=== PATIENT | male | born 1945 | race Caucasian/White ===

== ENCOUNTER → 2016-09-22 | Outpatient (CLI) | payer OTHER, BC ==
[~2016-09-22] MED LIST: ASPCH81X PO; MULT-618 PO
[2016-09-22 11:49] LABS: BLOOD UREA NITROGEN 24 mg/dl (7-18); BUN/CREATININE RATIO 16.9 (10-20); CARBON DIOXIDE 29 mmol/L (21-32); CHLORIDE 107 mmol/L (98-107); GLUCOSE 107 mg/dl (70-99); POTASSIUM 4.2 mmol/L (3.5-5.1); SODIUM 144 mmol/L (136-145)
[2016-09-22 12:12] LABS: ESTIMATED AVERAGE GLUCOSE 120 mg/dl; HA1C FLAG Normal (Normal)
== END | disposition home or self-care (01) ==
LOC: C.LAB1850 09:16
PROVIDERS: ATTEND Nurse Practitioner Family
DX: E55.9 Vitamin D deficiency, unspecified (principal); E78.5 Hyperlipidemia, unspecified; R73.09 Other abnormal glucose

== ENCOUNTER → 2017-03-27 | Outpatient (CLI) | payer OTHER, BC ==
[2017-03-27 09:33] LABS: BASO % 0.5 %; BASO ABS # 0.04 K/uL (0-0.2); COMPLETE YES; EOS % 2.7 %; HEMATOCRIT 46.3 % (42-52); IG% 0.4 %; LYMPH % 26.9 %; LYMPH ABS # 1.98 K/uL (1.2-3.4); MEAN CELL VOLUME 94.1 fL (80-100); MEAN CORPUSCULAR HEMOGLOBIN 32.7 pg (25-34); MEAN CORPUSCULAR HGB CONC 34.8 g/dl (32-36); MEAN PLATELET VOLUME 10.8 fL (7.4-10.4); MONO % 9.1 %; NEUT % 60.4 %; PLATELET COUNT 250 K/uL (130-400); RED BLOOD COUNT 4.92 M/uL (4.7-6.1); WHITE BLOOD COUNT 7.36 K/uL (4.8-10.8)
[2017-03-27 09:49] LABS: ESTIMATED AVERAGE GLUCOSE 117 mg/dl; HA1C FLAG Normal (Normal)
[2017-03-27 10:01] LABS: ALT/SGPT 26 U/L (12-78); BLOOD UREA NITROGEN 21 mg/dl (7-18); BUN/CREATININE RATIO 17.8 (10-20); CALCIUM 8.6 mg/dl (8.5-10.1); CARBON DIOXIDE 27 mmol/L (21-32); CHLORIDE 105 mmol/L (98-107); CHOLESTEROL 205 mg/dl (0-200); CREATININE 1.19 mg/dl (0.60-1.40); GLUCOSE 102 mg/dl (70-99); POTASSIUM 3.7 mmol/L (3.5-5.1); SODIUM 140 mmol/L (136-145)
[2017-03-27 10:05] LABS: ALKALINE PHOSPHATASE 65 U/L (45-117); AST/SGOT 13 U/L (15-37); CHOLESTEROL/HDL RATIO 2.8; HDL CHOLESTEROL 74 mg/dl; LDL CHOLESTEROL CALCULATED 110 mg/dl; TRIGLYCERIDES 105 mg/dl (0-150); VERY LOW DENSITY LIPOPROT CALC 21 mg/dl
[2017-03-27 10:09] LABS: RATIO 7.1 mcg/mg (0-30.0)
== END | disposition home or self-care (01) ==
LOC: C.LAB1850 08:38
PROVIDERS: ATTEND Nurse Practitioner Family
DX: E78.5 Hyperlipidemia, unspecified (principal); R73.09 Other abnormal glucose; E55.9 Vitamin D deficiency, unspecified

== ENCOUNTER → 2017-04-18 | Outpatient (CLI) | payer OTHER, BC ==
[~2017-04-18] MED LIST changes: +PERFLUTREN LIPID MICROSPHERE (DEFINITY) IV ONE
--- NOTE | 2017-04-18 15:13 | ECHOCARDIOGRAM REPORT ---
*NOTICE TO RECEIVING [employer] This information is strictly Confidential and protected under [place] law. [place] law prohibits you from making any further disclosure of this information unless further disclosure is expressly permitted by the written consent of the person to whom it pertains or is authorized by law. A general authorization for the release of medical or other information is not sufficient for this purpose. Hospital accepts no responsibility if the information is made available to any other person, INCLUDING THE PATIENT. Interpretation Summary * Name: MADAN KING Study Date: 04/18/2017 12:27 PM BP: 126/70 mmHg * Patient Location: [facility] HR: 65 * : 1945 (M/d/yyyy) Gender: Male Height: 70 in * Age: 72 yrs Ethnicity: [place] Weight: 220 lb * Ordering Physician: Magdaleno Howe * Referring Physician: Magdaleno Howe * Performed By: Rachel Price RDCS * * Reason For Study: HEART MURMUR * BSA: 2.2 m2 * -- Conclusions -- * There is mild concentric left ventricular hypertrophy. * Left ventricular systolic function is normal. * Grade I diastolic dysfunction, (abnormal relaxation pattern). * The left atrium is mildly dilated. * Mild valvular aortic stenosis. * Right ventricular systolic pressure is normal. Procedure Details * A contrast injection of Definity was performed to improve assessment of LV function. * Contrast was injected into an intravenous site in the right arm. * One vial of Definity ultrasound contrast was diluted in normal saline to a total volume of 10 ml. A total of '2' ml of solution was administered during imaging. * Lot # [id number] of Definity utilized for procedure. * Expiration date 1 JUN 04. * The attending nurse who injected the contrast agent was ELIZABETH JOHNSTON RN. Left Ventricle * The left ventricle is normal in size. * There is mild concentric left ventricular hypertrophy. * Left ventricular systolic function is normal. * Ejection Fraction = 55-60%. * Grade I diastolic dysfunction, (abnormal relaxation pattern). * The left ventricular wall motion is normal. Right Ventricle * The right ventricle is normal in size and function. * The right ventricular systolic function is normal as assessed by tricuspid annular plane systolic excursion (TAPSE) (normal >1.5 cm). Atria * The left atrium is mildly dilated. * Right atrial size is normal. Mitral Valve * The mitral valve anatomy is normal. * There is trace mitral regurgitation. Tricuspid Valve * The tricuspid valve is not well visualized, but is grossly normal. * There is trace tricuspid regurgitation. * Right ventricular systolic pressure is normal. Aortic Valve * The aortic valve is trileaflet. * Mild valvular aortic stenosis. * No aortic regurgitation is present. Great Vessels * The aortic root is normal size. Pericardium/Pleural * There is no pericardial effusion. Great Vessels * Normal inferior vena cava diameter and respiratory variation suggests normal central venous pressure. MMode 2D Measurements and Calculations IVSd 1.4 cm IVSs 2.0 cm LVIDd 4.5 cm LVIDs 3.2 cm LVPWd 1.4 cm LVPWs 1.7 cm IVS/LVPW 0.97 FS 27.7 % EDV(Teich) 91.4 ml ESV(Teich) 42.1 ml EF(Teich) 53.9 % EDV(cubed) 89.8 ml ESV(cubed) 33.9 ml EF(cubed) 62.2 % % IVS thick 44.2 % % LVPW thick 15.7 % LV mass(C)d 254.4 grams LV mass(C)dI 117.0 grams/m\S\2 LV mass(C)s 251.2 grams LV mass(C)sI 115.5 grams/m\S\2 SV(Teich) 49.3 ml SI(Teich) 22.7 ml/m\S\2 SV(cubed) 55.9 ml SI(cubed) 25.7 ml/m\S\2 Ao root diam 3.2 cm Ao root area 8.1 cm\S\2 LA dimension 4.0 cm LA/Ao 1.2 LVAd ap4 37.5 cm\S\2 LVLd ap4 8.7 cm EDV(MOD-sp4) 135.8 ml EDV(sp4-el) 137.9 ml LVAs ap4 23.5 cm\S\2 LVLs ap4 7.5 cm ESV(MOD-sp4) 64.9 ml ESV(sp4-el) 62.6 ml EF(MOD-sp4) 52.2 % EF(sp4-el) 54.6 % LVAd ap2 29.9 cm\S\2 LVLd ap2 8.5 cm EDV(MOD-sp2) 86.3 ml EDV(sp2-el) 89.5 ml LVAs ap2 16.3 cm\S\2 LVLs ap2 6.1 cm ESV(MOD-sp2) 36.2 ml ESV(sp2-el) 36.8 ml EF(MOD-sp2) 58.1 % EF(sp2-el) 58.9 % LVLd %diff -2.35 % EDV(MOD-bp) 108.8 ml LVLs %diff -22.50 % ESV(MOD-bp) 52.8 ml EF(MOD-bp) 51.5 % SV(MOD-sp4) 70.9 ml SI(MOD-sp4) 32.6 ml/m\S\2 SV(MOD-sp2) 50.1 ml SI(MOD-sp2) 23.1 ml/m\S\2 SV(MOD-bp) 56.0 ml SI(MOD-bp) 25.8 ml/m\S\2 SV(sp4-el) 75.3 ml SI(sp4-el) 34.6 ml/m\S\2 SV(sp2-el) 52.7 ml SI(sp2-el) 24.2 ml/m\S\2 Doppler Measurements and Calculations MV E max elier 60.2 cm/sec MV A max elier 66.3 cm/sec MV E/A 0.91 MV dec time 0.31 sec Ao V2 max 242.9 cm/sec Ao max PG 23.6 mmHg Ao max PG (full) 18.2 mmHg Ao V2 mean 160.8 cm/sec Ao mean PG 11.7 mmHg Ao mean PG (full) 9.3 mmHg Ao V2 VTI 48.4 cm LV V1 max PG 5.4 mmHg LV V1 mean PG 2.4 mmHg LV V1 max 116.6 cm/sec LV V1 mean 69.9 cm/sec LV V1 VTI 23.6 cm SV(Ao) 390.8 ml SI(Ao) 179.8 ml/m\S\2 TR max elier 215.4 cm/sec
== END | disposition home or self-care (01) ==
LOC: C.CPL 12:08
PROVIDERS: ATTEND Nurse Practitioner Family
DX: R01.1 Cardiac murmur, unspecified (principal)

== ENCOUNTER 2022-08-28 08:52 | Inpatient (IN) ==
[2022-08-28] MEDS ORDERED: ONDANSETRON INJ 2 MG/ML 2 ML VIAL IV STA (09:03)
[2022-08-28] MEDS ORDERED: SODIUM CHLORIDE 0.9% 500 ML IV STA (09:03)
--- NOTE | 2022-08-28 09:10 | Emergency Department Note ---
Impression & Plan Acute pancreatitis, Vomiting, WILMER (acute kidney injury), Elevated troponin I level ED Provider Note NAME: MADAN KING AGE: 77 SEX: M : 1945 ARRIVES VIA: Walk-In INFORMANT: Patient, ED PROVIDER(S): Augustin Turk DO CHIEF COMPLAINT: Vomiting HPI: The patient is a 77-year-old male who presented to the emergency department for an evaluation of nausea vomiting. The patient states that he started having symptoms yesterday. He states he started having nausea and vomiting with upper abdominal pain. His significant other states that he has been belching a lot. He also notices some lower chest pain and upper abdominal pain. He has a history of appendectomy but this was many years ago. He has no history of bowel obstruction. He denies having any back pain. He denies having any dysuria or frequency. He denies having any difficulty breathing. The patient had 2 more episodes of emesis which were very severe and his significant other brought him to the emergency department today for further evaluation. He has not been seen by his family doctor. ROS: See above HPI for pertinent positives & negatives. A total of 10 systems reviewed and were otherwise negative. PAST MEDICAL HISTORY: See Below PAST SURGICAL HISTORY: See Below FAMILY HISTORY: See Below SOCIAL HISTORY: See Below HOME MEDICATIONS: See Below ALLERGIES: See Below VITALS: See Below PHYSICAL EXAMINATION: GENERAL: Patient is awake alert in no acute distress patient is resting comfortably and showing no signs of anxiety EYES: The conjunctivae are clear. The pupils are round and reactive. EARS, NOSE, MOUTH AND THROAT: The nose is without any evidence of any deformity. Mucous membranes are moist. Tongue is midline. NECK: The neck is nontender and supple. RESPIRATORY: Normal respiratory effort is noted there is no evidence of wheezing rhonchi or rales CARDIOVASCULAR: Regular rate and rhythm noted there no murmurs rubs or gallops normal S1 normal S2. GASTROINTESTINAL: The abdomen is distended. There is diffuse tenderness to palpation. There is specific epigastric and supraumbilical tenderness to palpation. There is no inguinal masses or swelling noted on my exam. BACK: No midline tenderness or or step-off noted range of motion in flexion extension as well as rotation no signs of muscle spasm noted MUSCULOSKELETAL/EXTREMITIES: There is no evidence of gross deformity full range of motion is noted in the hips and shoulders. SKIN: There is no obvious evidence of any rash. There are no petechiae, pallor or cyanosis noted. NEUROLOGIC: Patient is awake alert and oriented x3. MEDICAL DECISION MAKING: The patient is a 77-year-old male who presented to the emergency department for an evaluation of abdominal pain and vomiting. The patient has significant upper abdominal pain on physical exam. The patient was found to have an elevation in his white blood cell count. He was treated with IV fluids and IV antiemetics. He was also treated with IV pain medication. Further he was treated with IV antibiotics and IV proton pump inhibitor when his lipase was found to be elevated and CAT scan appeared to be consistent with pancreatitis. I discussed the patient's condition with the on-call dang Sinha hospitalist as well as the on-call general surgeon. He was evaluated in the emergency department by both groups but they felt he may be a better candidate for transfer given the possibility of deterioration in necrosis. For this reason I discussed the farrah ashton's condition with the transfer group at [facility]. They had the ability to discuss patient's condition further with surgery and GI at their facility. They feel the patient can be kept at our facility at this time unless the patient were to deteriorate further. I discussed the patient's condition again with general surgery as well as Dang cutlerist at our group. Luis A lance have agreed to evaluate the patient in the emergency department again. Triage Nursing notes reviewed. Prior medical records reviewed Vital Signs: reviewed and remarkable for elevated blood pressure. Differential diagnosis: Gastroenteritis, food borne illness, infections, appendicitis, diverticulitis, inflammatory bowel disease, obstruction, GI bleed, biliary pathology, volvulus, as well as other pathologies. ER treatment provided: See below Diagnostics interpreted by me: ECG: EKG was obtained in the emergency department. My interpretation is normal sinus rhythm at 80 bpm. Nonspecific inferior and lateral ST depressions were noted. This was compared to a tracing from December 31, 2017. No changes were noted. Cardiac Monitoring: An order was placed for continuous cardiac monitoring. The monitor shows a rate of 78 bpm with sinus rhythm. Laboratory studies: As stated above and show below. Imaging studies: See below. Radiographic imaging was reviewed by myself Consultation(s): The case was discussed with Dr. Davidson who is on-call for the dang Sinha hospitalist group. I discussed this case with Leticia who is on-call for general surgery. They will evaluate the patient in the emergency department. I discussed this case with Dr. Zhong who is on for [facility]. They have agreed accept the patient in transfer although they will not have a bed for 24 hours. ED COURSE: Procedures: none Critical Care: I have personally spent greater than 45 minutes of critical care time in the direct management of this patient. This includes bedside care, interpretation of diagnostic studies, and testing, discussion with consultants, patient, and family members, and other required patient management activities. This 45 minutes is in excess of all separately billable procedures. Past Med/Surg History Medical History Cataracts, bilateral Heart murmur Hyperlipidemia Impaired glucose regulation Vitamin D deficiency Surgical History H/O bilateral cataract extraction History of appendectomy History of tonsillectomy Family History Sister Ovarian cancer Hypertension Obesity Mother Diabetes Father Stroke syndrome Other No significant family history Denies family history of Colon cancer Prostate cancer Myocardial infarction Breast cancer Colorectal cancer Social History Smoking Status: Never smoker Tobacco Type: Cigarettes Age Started Using Tobacco: 10; Age Quit Using Tobacco: 17; Second Hand Exposure: No; Do You Dip or Chew Tobacco: No; Hx Alcohol Use: Yes Alcohol type: beer Alcohol Intake Frequency: 2-4 x/Month Hx Substance Use: No Preferred Language: Mauritian Communication Ability: Effective Visual Impairment: No Limitations Hearing Ability: Normal Driller Portable Required: No marital status: Current Living Situation: Spouse current occupational status: retired How many Children do You have: 1 Feels Safe at Home: Yes Childhood Exposure to Second-Hand Smoke: Yes Diet: regular caffeine: No during the past year weight has: decreased > 10 lbs Dental Care, Regularly: Yes Physical Activity Frequency: 3-4 Times per Week Seatbelt Use: always Sunscreen Use: Yes Assistive Devices: Glasses Allergies Allergies Allergy/AdvReac Type Severity Reaction Status Date / Time piperacillin [From Zosyn] Allergy Hives Unverified 08/28/22 11:30 Sulfa (Sulfonamide Allergy Hives Verified 08/09/22 10:50 Antibiotics) tazobactam [From Zosyn] Allergy Hives Unverified 08/28/22 11:30 Home Meds Home Medications Medication Instructions Recorded Confirmed aspirin 81 mg tablet,delayed 81 mg PO DAILY 12/31/17 08/28/22 release (Adult Low Dose Aspirin) [id number]-[id number] acid 300 1 tab PO DAILY 12/31/17 08/28/22 mcg-lycopene 600 mcg-lutein 300 mcg tablet (Centrum Silver Men) mupirocin 2 % topical ointment 1 applic topical TID 02/07/22 08/28/22 cholecalciferol (vitamin D3) 50 2,000 unit PO DAILY 08/09/22 08/28/22 mcg (2,000 unit) tablet (Vitamin D3) melatonin 5 mg tablet 10 mg PO HS 08/28/22 08/28/22 Previous Rx's Medication Instructions Recorded lisinopril 5 mg tablet 5 mg PO QAM #90 tabs 11/16/21 triamcinolone acetonide 0.1 % 1 applic topical DAILY PRN rash 06/12/22 topical cream #80 grams Results & Data (ED) Vital Signs Vital Signs - 24 hr 08/28/22 08:54 08/28/22 09:12 08/28/22 09:13 Temperature 36.5 C Temperature Source Temporal Artery Scan Pulse Rate 93 H Pulse Rate [Apical] 79 Pulse Rate from SpO2 Sensor Pulse Rhythm Regular Pulse Rhythm [Apical] Regular Respiratory Rate 20 18 Respiratory Effort / Characteristics Non-Labored Spontaneous Respiratory Depth Normal Blood Pressure 157/90 H Blood Pressure [Left Arm] 169/82 H Blood Pressure Mean 112 Blood Pressure Mean [Left Arm] 111 Pulse Oximetry 97 97 98 Oxygen Delivery Method Room Air Room Air Room Air Sepsis Recent Fever Within 48 Hours No Sepsis New/Unexplained Change in Mental Status No Sepsis Action Taken by Nursing No Action Required 08/28/22 10:12 08/28/22 09:15 08/28/22 09:20 Temperature Temperature Source Pulse Rate 83 77 Pulse Rate [Apical] 77 Pulse Rate from SpO2 Sensor 83 78 Pulse Rhythm Pulse Rhythm [Apical] Respiratory Rate 15 17 21 Respiratory Effort / Characteristics Respiratory Depth Blood Pressure Blood Pressure [Left Arm] Blood Pressure Mean Blood Pressure Mean [Left Arm] Pulse Oximetry 97 98 96 Oxygen Delivery Method Room Air Sepsis Recent Fever Within 48 Hours Sepsis New/Unexplained Change in Mental Status Sepsis Action Taken by Nursing 08/28/22 09:30 08/28/22 09:40 08/28/22 09:50 Temperature Temperature Source Pulse Rate Pulse Rate [Apical] Pulse Rate from SpO2 Sensor 72 76 73 Pulse Rhythm Pulse Rhythm [Apical] Respiratory Rate Respiratory Effort / Characteristics Respiratory Depth Blood Pressure Blood Pressure [Left Arm] Blood Pressure Mean Blood Pressure Mean [Left Arm] Pulse Oximetry 98 97 96 Oxygen Delivery Method Sepsis Recent Fever Within 48 Hours Sepsis New/Unexplained Change in Mental Status Sepsis Action Taken by Nursing 08/28/22 10:00 08/28/22 10:40 08/28/22 10:50 Temperature Temperature Source Pulse Rate 86 82 Pulse Rate [Apical] Pulse Rate from SpO2 Sensor 76 Pulse Rhythm Pulse Rhythm [Apical] Respiratory Rate 18 Respiratory Effort / Characteristics Respiratory Depth Blood Pressure Blood Pressure [Left Arm] Blood Pressure Mean Blood Pressure Mean [Left Arm] Pulse Oximetry 97 Oxygen Delivery Method Sepsis Recent Fever Within 48 Hours Sepsis New/Unexplained Change in Mental Status Sepsis Action Taken by Nursing 08/28/22 11:00 08/28/22 11:10 08/28/22 11:20 Temperature Temperature Source Pulse Rate 80 77 85 Pulse Rate [Apical] Pulse Rate from SpO2 Sensor Pulse Rhythm Pulse Rhythm [Apical] Respiratory Rate 15 Respiratory Effort / Characteristics Respiratory Depth Blood Pressure Blood Pressure [Left Arm] Blood Pressure Mean Blood Pressure Mean [Left Arm] Pulse Oximetry Oxygen Delivery Method Sepsis Recent Fever Within 48 Hours Sepsis New/Unexplained Change in Mental Status Sepsis Action Taken by Nursing 08/28/22 11:30 08/28/22 11:40 Temperature Temperature Source Pulse Rate 81 78 Pulse Rate [Apical] Pulse Rate from SpO2 Sensor Pulse Rhythm Pulse Rhythm [Apical] Respiratory Rate 25 H Respiratory Effort / Characteristics Respiratory Depth Blood Pressure Blood Pressure [Left Arm] Blood Pressure Mean Blood Pressure Mean [Left Arm] Pulse Oximetry Oxygen Delivery Method Sepsis Recent Fever Within 48 Hours Sepsis New/Unexplained Change in Mental Status Sepsis Action Taken by Custodial Medications Current Medication List: was personally reviewed by me Laboratory Data Attestation: I reviewed the patient's lab results. 08/28/22 09:10 08/28/22 09:10 Lab Results 08/28/22 08/28/22 08/28/22 Range/Units 09:10 09:10 14:10 WBC 22.92 H (4.8-10.8) K/ul RBC 5.39 (4.70-6.10) M/uL Hgb 17.2 (14.0-18.0) g/dl Hct 49.3 (42.0-52.0) % MCV 91.5 (80.0-100.0) fL MCH 31.9 (25.0-34.0) pg MCHC 34.9 (32.0-36.0) g/dL RDW Std Deviation 42.5 (36.4-46.3) fL RDW Coeff of Zane 12.8 (11.5-14.5) % Plt Count 251 (130-400) K/uL MPV 10.7 (9.4-12.4) fL Immature Gran % (Auto) 0.9 % Neut % (Auto) 86.2 % Lymph % (Auto) 3.5 % [place] % (Auto) 9.2 % Eos % (Auto) 0.0 % Baso % (Auto) 0.2 % Neut # (Auto) 19.76 H (1.40-6.50) K/uL Lymph # (Auto) 0.80 L (1.2-3.4) K/uL [place] # (Auto) 2.12 H (0.11-0.59) K/uL Eos # (Auto) 0.00 (0-0.50) K/uL Baso # (Auto) 0.04 (0-0.2) K/uL Immature Gran # (Auto) 0.20 (0.01-0.20) K/uL VBG pH (7.36-7.41) VBG pCO2 (38-50) mmHg VBG pO2 mmHg VBG HCO3 mmol/L VBG O2 Saturation % VBG Base Excess mEq/L Sodium 139 139 (136-145) mmol/L Potassium 4.0 4.3 (3.5-5.1) mmol/L Chloride 101 104 (98-107) mmol/L Carbon Dioxide 29 27 (21-32) mmol/L Anion Gap 9 8 (3-11) BUN 34 H 32 H (6-23) mg/dl Creatinine 1.45 H 1.36 (0.6-1.4) mg/dl Est Cr Clr Drug Dosing 45.5 48.5 ml/min Est GFR ( Amer) 52.7 57.0 ml/min Est GFR (Non-Af Amer) 45.5 49.1 ml/min BUN/Creatinine Ratio 23.4 H 23.5 H (10-20) Glucose 178 H 161 H (70-99(Fasting)) mg/dl Calcium 9.5 9.0 (8.6-10.3) mg/dl Total Bilirubin 2.4 H (0.2-1.0) mg/dl AST 29 (13-39) U/L ALT 35 (7-52) U/L Alkaline Phosphatase 55 (34-104) U/L Troponin I High Sens 51.1 H* (0-20) pg/ml C-Reactive Protein 7.08 H (0-0.5) mg/dl Total Protein 7.1 (6.0-8.3) gm/dl Albumin 4.3 (3.4-5.0) gm/dl Globulin 2.8 (2.5-4.0) gm/dl Albumin/Globulin Ratio 1.5 (0.9-2) Lipase 1057 H (11-82) U/L SARS-CoV-2, RNA, NAAT (NEGATIVE) 08/28/22 08/28/22 Range/Units 14:10 Unknown WBC (4.8-10.8) K/ul RBC (4.70-6.10) M/uL Hgb (14.0-18.0) g/dl Hct (42.0-52.0) % MCV (80.0-100.0) fL MCH (25.0-34.0) pg MCHC (32.0-36.0) g/dL RDW Std Deviation (36.4-46.3) fL RDW Coeff of Zane (11.5-14.5) % Plt Count (130-400) K/uL MPV (9.4-12.4) fL Immature Gran % (Auto) % Neut % (Auto) % Lymph % (Auto) % [place] % (Auto) % Eos % (Auto) % Baso % (Auto) % Neut # (Auto) (1.40-6.50) K/uL Lymph # (Auto) (1.2-3.4) K/uL [place] # (Auto) (0.11-0.59) K/uL Eos # (Auto) (0-0.50) K/uL Baso # (Auto) (0-0.2) K/uL Immature Gran # (Auto) (0.01-0.20) K/uL VBG pH 7.40 (7.36-7.41) VBG pCO2 47 (38-50) mmHg VBG pO2 21 mmHg VBG HCO3 29 mmol/L VBG O2 Saturation < 60.0 % VBG Base Excess 3.5 mEq/L Sodium (136-145) mmol/L Potassium (3.5-5.1) mmol/L Chloride (98-107) mmol/L Carbon Dioxide (21-32) mmol/L Anion Gap (3-11) BUN (6-23) mg/dl Creatinine (0.6-1.4) mg/dl Est Cr Clr Drug Dosing ml/min Est GFR ( Amer) ml/min Est GFR (Non-Af Amer) ml/min BUN/Creatinine Ratio (10-20) Glucose (70-99(Fasting)) mg/dl Calcium (8.6-10.3) mg/dl Total Bilirubin (0.2-1.0) mg/dl AST (13-39) U/L ALT (7-52) U/L Alkaline Phosphatase (34-104) U/L Troponin I High Sens (0-20) pg/ml C-Reactive Protein (0-0.5) mg/dl Total Protein (6.0-8.3) gm/dl Albumin (3.4-5.0) gm/dl Globulin (2.5-4.0) gm/dl Albumin/Globulin Ratio (0.9-2) Lipase (11-82) U/L SARS-CoV-2, RNA, NAAT NEGATIVE (NEGATIVE) Administered Medications Discontinued Medications Diphenhydramine HCl (Diphenhydramine 50 Mg/Ml Vial) 50 mg IV NOW STA Stop: 08/28/22 11:13 Last Admin: 08/28/22 11:17 Dose: 50 mg Documented By: KMO Famotidine (Famotidine 20mg/5ml Iv Push) Confirm Administered Dose 20 mg IV .STK-MED ONE Stop: 08/28/22 10:45 Last Admin: 08/28/22 10:47 Dose: Not Given Documented By: KV Sodium Chloride (Nss) 500 mls @ 999 mls/hr IV .Q31M STA Stop: 08/28/22 09:33 Last Infusion: 08/28/22 11:25 Dose: 0 mls/hr Documented By: Admin: 08/28/22 09:14 Dose: 999 mls/hr Documented By: KV Sodium Chloride (Nss 1000ml) 1,000 mls @ 999 mls/hr IV .Q1H1M ONE Stop: 08/28/22 11:03 Last Infusion: 08/28/22 11:25 Dose: 0 mls/hr Documented By: Admin: 08/28/22 10:12 Dose: 999 mls/hr Documented By: KV Piperacillin Sod/Tazobactam Sod (Zosyn) 4.5 gm in 120 mls @ 240 mls/hr IV NOW ONE Stop: 08/28/22 11:01 Last Infusion: 08/28/22 11:25 Dose: 0 mls/hr Documented By: Admin: 08/28/22 10:47 Dose: 240 mls/hr Documented By: MILI Pantoprazole Sodium 40 mg/ (Syringe) 10 mls @ 5 mls/min IV NOW ONE Stop: 08/28/22 10:40 Last Admin: 08/28/22 11:17 Dose: 5 mls/min Documented By: CHEMO Famotidine 20 mg/ Syringe 5 mls @ 2.5 mls/min IV NOW ONE Stop: 08/28/22 10:40 Last Admin: 08/28/22 10:47 Dose: 2.5 mls/min Documented By: KV Ioversol (Optiray 320 100ml) 88 ml IV ONCE ONE Stop: 08/28/22 10:27 Last Admin: 08/28/22 10:26 Dose: 88 ml Documented By: KSF Ondansetron HCl (Ondansetron Inj 2 Mg/Ml 2 Ml Vial) 4 mg IV NOW STA Stop: 08/28/22 09:04 Last Admin: 08/28/22 09:14 Dose: 4 mg Documented By: KV Imaging Data Attestation: I personally reviewed and interpreted this imaging study as follo ws: My Impression: 1 view chest x-ray was obtained in the emergency department. My interpretation is no free air, no definite infiltrate, final report below. Radiologist's Impression: Chest X-Ray 08/28/22 09:04 XR chest 1V portable HISTORY: 77 years-old Male vomiting acute nausea with vomiting COMPARISON: Chest radiograph 12/31/2017 TECHNIQUE: AP view of the chest FINDINGS: Cardiac silhouette is enlarged. Atherosclerosis of the aorta. Spondylotic spurring of the spine. No pneumothorax, pleural effusion, airspace consolidation or pulmonary edema. IMPRESSION: No acute process. ACT 112: Negative or not required by law. The above report was generated using voice recognition software. It may contain grammatical, syntax or spelling errors. Electronically signed by: Vel Morales M.D. 08/28/2022 9:37 AM Abdomen/Pelvis CT 08/28/22 09:[address] WITH IV CONTRAST CT DOSE: 1077.80 mGy.cm HISTORY: Acute onset abdominal pain with nausea and vomiting obsstruction, pain , vomiting TECHNIQUE: Multiaxial CT images of the abdomen and pelvis were performed following the IV administration of 88 cc of Optiray, A dose lowering technique was utilized adhering to the principles of ALARA. COMPARISON STUDY: Chest radiograph of same day FINDINGS: Cardiomegaly. Mild bibasilar atelectasis. No pneumatosis or pneumoperitoneum. Unremarkable spleen and adrenal glands. Partial distention of the gallbladder with mild circumferential wall thickening. No biliary ductal dilation. Patency of the hepatic and portal veins. Interstitial and peripancreatic edema with small volume of ascites in the lesser sac with extension into the upper abdomen and dependent pelvis. There is decreased enha ncement throughout the neck and body of the pancreas. No pancreatic ductal dilation or acute peripancreatic fluid collection. 1.5 cm hypodensity within the uncinate process of the pancreas may represent a sidebranch IPMN. Subcentimeter hypodensity of the anterior interpolar left kidney, too small to characterize. 3 mm nonobstructing calculus of the inferior pole right kidney. No hydronephrosis. Prostatomegaly. Urinary bladder wall thickening with partial distention. Small fat filled inguinal hernias. Atherosclerosis of the aorta with infrarenal ectasia, 2.8 cm. No lymphadenopathy. Wall thickening of distal esophagus which is fluid-filled. Small hiatal hernia. Mild wall thickening of the duodenum. No bowel obstruction. Colonic diverticulos is. Appendectomy. Unremarkable soft tissues. Degenerative changes of the IMPRESSION: 1. No bowel obstruction or pneumoperitoneum. 2. Acute pancreatitis with decreased enhancement involving the pancreatic body suspicious for developing parenchymal necrosis (necrotizing pancreatitis). 3. No acute peripancreatic fluid collections or focal peripancreatic necrosis. 4. Mild wall thickening of the duodenum and gallbladder, likely reactive. 5. 3 mm right renal calculus. 6. Small hiatal hernia with mild distal esophageal wall thickening. ACT 112: Negative or not required by law. The above report was generated using voice recognition software. It may contain grammatical, syntax or spelling errors. Electronically signed by: Vel Morales M.D. 08/28/2022 10:45 AM Discharge Plan Visit Data Chief Complaint: Vomiting Stated Complaint: VOMITING ED Provider: Augustin Turk Discharge Problem: Acute pancreatitis, Vomiting, WILMER (acute kidney injury), Elevated troponin I level Patient Disposition: Being Evaluated by Hospitalist Forms Stand Alone Forms: [facility] Prescriptions Prescriptions: No Action lisinopril 5 mg tablet 5 mg PO QAM Qty: 90 3RF mupirocin 2 % ointment 1 applic topical TID triamcinolone acetonide 0.1 % cream 1 applic TOP DAILY PRN (Reason: rash) Qty: 80 0RF cholecalciferol (vitamin D3) [Vitamin D3] 50 mcg (2,000 unit) tablet 2,000 unit PO DAILY Rx Instructions: 2,000 units in summer, 4,000 units in winter aspirin [Adult Low Dose Aspirin] 81 mg Tablet,Delayed Release (Dr/Ec) 81 mg PO DAILY Centrum Silver Men 300-600-300 mcg Tablet 1 tab PO DAILY melatonin 5 mg Tablet 10 mg PO HS Referrals Referrals: Magdaleno Howe III, CRNP [Primary Care Provider] -
[2022-08-28 09:34] LABS: Basophils # (auto) 0.04 K/uL (0-0.2); Basophils % (auto) 0.2 %; Hematocrit (blood only) 49.3 % (42.0-52.0); Hemoglobin 17.2 g/dl (14.0-18.0); Immature Granulocytes % (auto) 0.9 %; Lymphocytes % (auto) 3.5 %; Mean Corpuscular Hemoglobin 31.9 pg (25.0-34.0); Mean Corpuscular Hgb Conc 34.9 g/dL (32.0-36.0); Mean Corpuscular Volume 91.5 fL (80.0-100.0); Mean Platelet Volume 10.7 fL (9.4-12.4); Monocytes # (auto) 2.12 K/uL (0.11-0.59); Monocytes % (auto) 9.2 %; Neutrophils # (auto) 19.76 K/uL (1.40-6.50); Neutrophils % (auto) 86.2 %; Platelet Count 251 K/uL (130-400); RDW Coefficient of Variation 12.8 % (11.5-14.5); RDW Standard Deviation 42.5 fL (36.4-46.3); Red Blood Count 5.39 M/uL (4.70-6.10); White Blood Count 22.92 K/ul (4.8-10.8)
--- NOTE | 2022-08-28 09:39 | XRay Report ---
XR chest 1V portable HISTORY: 77 years-old Male vomiting acute nausea with vomiting COMPARISON: Chest radiograph 12/31/2017 TECHNIQUE: AP view of the chest FINDINGS: Cardiac silhouette is enlarged. Atherosclerosis of the aorta. Spondylotic spurring of the spine. No p neumothorax, pleural effusion, airspace consolidation or pulmonary edema. IMPRESSION: No acute process. ACT 112: Negative or not required by law. The above report was generated using voice recognition software. It may contain grammatical, syntax o r spelling errors. Electronically signed by: Vel Morales M.D. 08/28/2022 9:37 AM
[2022-08-28 09:50] LABS: BUN Creatinine Ratio 23.4 (10-20); Calcium 9.5 mg/dl (8.6-10.3); Creatinine Clr Calc Pharmacy 45.5 ml/min; Est GFR (African American) 52.7 ml/min; Est GFR (Non-African American) 45.5 ml/min
[2022-08-28 09:59] LABS: Albumin Globulin Ratio 1.5 (0.9-2); Albumin Level 4.3 gm/dl (3.4-5.0); Bilirubin,Total 2.4 mg/dl (0.2-1.0); Globulin 2.8 gm/dl (2.5-4.0); Total Protein 7.1 gm/dl (6.0-8.3); Troponin I High Sensitivity 51.1 pg/ml (0-20)
[2022-08-28] MEDS ORDERED: SODIUM CHLORIDE 0.9% 1000ML 1,000 ML IV ONE (10:03)
[2022-08-28] MEDS ORDERED: OPTIRAY 320 100ml IV ONE (10:26)
[2022-08-28] MEDS ORDERED: PIPERACILLIN/TAZOBACTAM 4.5 GM/120 ML BAG IV ONE (10:32)
[2022-08-28] MEDS ORDERED: PANTOprazole 40 MG in SYRINGE 0 ML IV ONE (10:39)
[2022-08-28] MEDS ORDERED: FAMOTIDINE 20 MG in SYRINGE 3 ML IV ONE (10:39)
[2022-08-28] MEDS ORDERED: FAMOTIDINE 20MG/5ML IV PUSH IV ONE (10:44)
--- NOTE | 2022-08-28 10:47 | CT Scan Report ---
ABDOMEN AND PELVIS CT WITH IV CONTRAST CT DOSE: 1077.80 mGy.cm HISTORY: Acute onset abdominal pain with nausea and vomiting obsstruction, pain , vomiting TECHNIQUE: Multiaxial CT images of the abdomen and pelvis were performed following the IV administrat ion of 88 cc of Optiray, A dose lowering technique was utilized adhering to the principles of ALARA. COMPARISON STUDY: Chest radiograph of same day FINDINGS: Cardiomegaly. Mild bibasilar atelectasis. No pneumatosis or pneumoperitoneum. Unremarkable spleen and adrenal glands. Partial distention of the gallbladder with mild circumferential wall thick ening. No biliary ductal dilation. Patency of the hepatic and portal veins. Interstitial and peripanc reatic edema with small volume of ascites in the lesser sac with extension into the upper abdomen and dependent pelvis. There is decreased enhancement throughout the neck and body of the pancreas. No pa ncreatic ductal dilation or acute peripancreatic fluid collection. 1.5 cm hypodensity within the unci ac process of the pancreas may represent a sidebranch IPMN. Subcentimeter hypodensity of the anterior interpolar left kidney, too small to characterize. 3 mm non obstructing calculus of the inferior pole right kidney. No hydronephrosis. Prostatomegaly. Urinary bl adder wall thickening with partial distention. Small fat filled inguinal hernias. Atherosclerosis of the aorta with infrarenal ectasia, 2.8 cm. No lymphadenopathy. Wall thickening of distal esophagus which is fluid-filled. Small hiatal hernia. Mild wall thickening of the duodenum. No bowel obstruction. Colonic diverticulosis. Appendectomy. Unremarkable soft tissue s. Degenerative changes of the IMPRESSION: 1. No bowel obstruction or pneumoperitoneum. 2. Acute pancreatitis with decreased enhancement involving the pancreatic body suspicious for develop ing parenchymal necrosis (necrotizing pancreatitis). 3. No acute peripancreatic fluid collections or focal peripancreatic necrosis. 4. Mild wall thickening of the duodenum and gallbladder, likely reactive. 5. 3 mm right renal calculus. 6. Small hiatal hernia with mild distal esophageal wall thickening. ACT 112: Negative or not required by law. The above report was generated using voice recognition software. It may contain grammatical, syntax o r spelling errors. Electronically signed by: Vel Morales M.D. 08/28/2022 10:45 AM
--- NOTE | 2022-08-28 11:04 | History & Physical Report ---
Date of Service August 28, 2022 History of Present Illness Chief Complaint: Nausea and vomiting Primary Care Provider: Magdaleno Howe III, CRNP [place] Allergies Allergy/AdvReac Type Severity Reaction Status Date / Time Sulfa (Sulfonamide Allergy Hives Verified 08/09/22 10:50 Antibiotics) Home Medications Medication Instructions Recorded Confirmed Type aspirin 81 mg tablet,delayed 81 mg PO DAILY 12/31/17 08/09/22 History release (Adult Low Dose Aspirin) nwvycgid-xuv-ihcty acid 300 1 tab PO DAILY 12/31/17 08/09/22 History mcg-lycopene 600 mcg-lutein 300 mcg tablet (Centrum Silver Men) lisinopril 5 mg tablet 5 mg PO QAM #90 tabs 11/16/21 08/09/22 Rx mupirocin 2 % topical ointment 1 applic topical TID PRN 02/07/22 08/09/22 History triamcinolone acetonide 0.1 % 1 applic topical DAILY PRN rash 06/12/22 08/09/22 Rx topical cream #80 grams cholecalciferol (vitamin D3) 50 2,000 unit PO DAILY 08/09/22 08/09/22 History mcg (2,000 unit) tablet (Vitamin D3) Past Med/Surg History Medical History Cataracts, bilateral Heart murmur Hyperlipidemia Impaired glucose regulation Vitamin D deficiency Surgical History H/O bilateral cataract extraction History of appendectomy History of tonsillectomy Family History Sister Ovarian cancer Hypertension Obesity Mother Diabetes Father Stroke syndrome Other No significant family history Denies family history of Colon cancer Prostate cancer Myocardial infarction Breast cancer Colorectal cancer Social History Smoking Status: Never smoker Tobacco Type: Cigarettes Age Started Using Tobacco: 10; Age Quit Using Tobacco: 17; Second Hand Exposure: No; Do You Dip or Chew Tobacco: No; Hx Alcohol Use: Yes Alcohol type: beer Alcohol Intake Frequency: 2-4 x/Month Hx Substance Use: No Preferred Language: Armenian Communication Ability: Effective Visual Impairment: No Limitations Hearing Ability: Normal Tube Backer Required: No marital status: Current Living Situation: Spouse current occupational status: retired How many Children do You have: 1 Feels Safe at Home: Yes Childhood Exposure to Second-Hand Smoke: Yes Diet: regular caffeine: No during the past year weight has: decreased > 10 lbs Dental Care, Regularly: Yes Physical Activity Frequency: 3-4 Times per Week Seatbelt Use: always Sunscreen Use: Yes Assistive Devices: Glasses Results & Data Results & Data Vital Signs (Past 12 Hours) Vital Signs Temp Pulse Pulse Resp BP BP Pulse Ox 08/28/22 10:12 77 15 97 08/28/22 09:13 98 08/28/22 09:12 79 18 169/82 H 97 08/28/22 08:54 36.5 C 93 H 20 157/90 H 97 O2 Del Method 08/28/22 10:12 Room Air 08/28/22 09:13 Room Air 08/28/22 09:12 Room Air 08/28/22 08:54 Room Air PG Care Time/CCT Total # of Minutes Spent Total Time Spent with Patient: Total time spent is greater than 50% in coordination of care (as documented) at patient's floor/unit and/or counseling patient: Coding Diagnoses
[2022-08-28] MEDS ORDERED: diphenhydrAMINE 50 MG/ML VIAL IV STA (11:12)
--- NOTE | 2022-08-28 12:38 | Surgery Consultation ---
Date of Consultation August 28, 2022 Assessment & Plan (1) Acute pancreatitis: 77 year-old male with 1 day history of nausea, vomiting x 7 and upper abdominal pain with elevated leukocytosis of 22k, t. bili of 2.4, and lipase of [address] scan of abd/pelvis showing acute pancreatitis with decreased enhancement of pancreatic body suspicious for developing necrotizing pancreatitis. No peripancreatic fluid collections or focal peripancreatic necrosis. Currently hemodynamically stable. Plan: Dr. Hyman discussed with patient and his imaging findings of acute pancreatitis with concern for possible developing necrotizing pancreatitis. In the situation of necrotizing pancreatitis, there can be clinical deterioration and need for surgical debridement if patient were to become unstable. Dr. Hymna discussed this would require transfer to tertiary center where expertise in these situations are available as this surgical procedure is not performed here at [facility]. After discussion, patient and would prefer transfer to tertiary center. Discussed if tertiary center not able to accept patient or they feel he does not require transfer at this time he would be admitted to medical service and treated conservatively with fluid hydration, pain management as needed, antiemetics as needed, and kept NPO for now. If patient is admitted here, would recommend GI consultation as he may require further evaluation from biliary perspective given t. bili elevated at 2.4. (?MRCP) Dr. Hyman has seen and examined patient, agrees with above. History of Present Illness Reason for Consultation: Acute pancreatitis, possible developing necrotizing pancreatitis Requesting Physician: Dr. Turk Attending Physician: Dr. Turk History of Present Illness Jairo is a 77 year-old male with history of heart murmur, hyperlipidemia, vitamin D deficiency, who presented to emergency department due to nausea, vomiting, and upper abdominal pain that began yesterday afternoon after eating really spicy food. present in room and states he started having vomiting after 2 pm and has vomited about 7 times. Last episode of vomiting look dark in nature. Has not had a bowel movement in at last 2-3 days. Denies of any similar episodes of pain. Denies of any fevers, chills, vomiting blood, diarrhea, blood in stools. No history of gallbladder issues that he is aware of. ER work-up included labs which showed leukocytosis of 22k. T. bili of 2.4. LFTs and alk phos wnl. Lipase of 1057. Ct scan of abd/pelvis with IV contrast showing acute pancreatitis with decreased enhancement of pancreatic body suspicious of possible developing necrotizing pancreatitis. He is currently hemodynamically stable , afebrile, and pain controlled currently in emergency department during our evaluation. Allergies Allergy/AdvReac Type Severity Reaction Status Date / Time piperacillin [From Zosyn] Allergy Hives Unverified 08/28/22 11:30 Sulfa (Sulfonamide Allergy Hives Verified 08/09/22 10:50 Antibiotics) tazobactam [From Zosyn] Allergy Hives Unverified 08/28/22 11:30 Home Medications Medication Instructions Recorded Confirmed Type aspirin 81 mg tablet,delayed 81 mg PO DAILY 12/31/17 08/28/22 History release (Adult Low Dose Aspirin) ydjjwjqf-pms-zczvd acid 300 1 tab PO DAILY 12/31/17 08/28/22 History mcg-lycopene 600 mcg-lutein 300 mcg tablet (Centrum Silver Men) lisinopril 5 mg tablet 5 mg PO QAM #90 tabs 11/16/21 08/28/22 Rx mupirocin 2 % topical ointment 1 applic topical TID 02/07/22 08/28/22 History triamcinolone acetonide 0.1 % 1 applic topical DAILY PRN rash 06/12/22 08/28/22 Rx topical cream #80 grams cholecalciferol (vitamin D3) 50 2,000 unit PO DAILY 08/09/22 08/28/22 History mcg (2,000 unit) tablet (Vitamin D3) melatonin 5 mg tablet 10 mg PO HS 08/28/22 08/28/22 History Patient History Medical History Cataracts, bilateral Heart murmur Hyperlipidemia Impaired glucose regulation Vitamin D deficiency Surgical History H/O bilateral cataract extraction History of appendectomy History of tonsillectomy Family History Sister Ovarian cancer Hypertension Obesity Mother Diabetes Father Stroke syndrome Other No significant family history Denies family history of Colon cancer Prostate cancer Myocardial infarction Breast cancer Colorectal cancer Social History Smoking Status: Never smoker Tobacco Type: Cigarettes Age Started Using Tobacco: 10; Age Quit Using Tobacco: 17; Second Hand Exposure: No; Do You Dip or Chew Tobacco: No; Hx Alcohol Use: Yes Alcohol type: beer Alcohol Intake Frequency: 2-4 x/Month Hx Substance Use: No Preferred Language: Welsh Communication Ability: Effective Visual Impairment: No Limitations Hearing Ability: Normal Front Office Assistant Required: No marital status: Current Living Situation: Spouse current occupational status: retired How many Children do You have: 1 Feels Safe at Home: Yes Childhood Exposure to Second-Hand Smoke: Yes Diet: regular caffeine: No during the past year weight has: decreased > 10 lbs Dental Care, Regularly: Yes Physical Activity Frequency: 3-4 Times per Week Seatbelt Use: always Sunscreen Use: Yes Assistive Devices: Glasses Review of Systems Review of Systems: All systems reviewed & are unremarkable except as noted in HPI & below Physical Exam Constitutional: WD/WN, vitals as above cooperative, comfortable and + overweight; no acute distress, not combative, not diaphoretic and not lethargic Respiratory: normal respiratory effort, lungs clear to auscultation Cardiovascular: Rate/Rhythm: regular rate and regular rhythm; not tachycardic Heart Sounds: normal S1 and normal S2 Gastrointestinal (Abdomen): Inspection/Auscultation: + abdomen distended (mildly distended) and + abdominal surgical scar (RLQ scar from appendectomy) Percussion/Palpation: + abdomen tender (periumbilical and epigastric) and abdomen soft; no guarding, abdomen not rigid and abdomen not firm Skin: no rashes, warm and dry no jaundice Psychiatric: Orientation: alert and oriented x 3 Results & Data Vital Signs (Past 12 Hours) Vital Signs Temp Pulse Pulse Resp BP BP Pulse Ox 08/28/22 11:40 78 08/28/22 11:30 81 25 H 08/28/22 11:20 85 08/28/22 11:10 77 15 08/28/22 11:00 80 08/28/22 10:50 82 18 08/28/22 10:40 86 08/28/22 10:00 97 08/28/22 09:50 96 08/28/22 09:40 97 08/28/22 09:30 98 08/28/22 09:20 77 21 96 08/28/22 09:15 83 17 98 08/28/22 10:12 77 15 97 08/28/22 09:13 98 08/28/22 09:12 79 18 169/82 H 97 08/28/22 08:54 36.5 C 93 H 20 157/90 H 97 O2 Del Method 08/28/22 11:40 08/28/22 11:30 08/28/22 11:20 08/28/22 11:10 08/28/22 11:00 08/28/22 10:50 08/28/22 10:40 08/28/22 10:00 08/28/22 09:50 08/28/22 09:40 08/28/22 09:30 08/28/22 09:20 08/28/22 09:15 08/28/22 10:12 Room Air 08/28/22 09:13 Room Air 08/28/22 09:12 Room Air 08/28/22 08:54 Room Air Laboratory Results 08/28/22 08/28/22 08/28/22 Range/Units Unknown 09:10 09:10 WBC 22.92 H (4.8-10.8) K/ul RBC 5.39 (4.70-6.10) M/uL Hgb 17.2 (14.0-18.0) g/dl Hct 49.3 (42.0-52.0) % MCV 91.5 (80.0-100.0) fL MCH 31.9 (25.0-34.0) pg MCHC 34.9 (32.0-36.0) g/dL RDW Std Deviation 42.5 (36.4-46.3) fL RDW Coeff of Zane 12.8 (11.5-14.5) % Plt Count 251 (130-400) K/uL MPV 10.7 (9.4-12.4) fL Immature Gran % (Auto) 0.9 % Neut % (Auto) 86.2 % Lymph % (Auto) 3.5 % Reagan % (Auto) 9.2 % Eos % (Auto) 0.0 % Baso % (Auto) 0.2 % Neut # (Auto) 19.76 H (1.40-6.50) K/uL Lymph # (Auto) 0.80 L (1.2-3.4) K/uL Reagan # (Auto) 2.12 H (0.11-0.59) K/uL Eos # (Auto) 0.00 (0-0.50) K/uL Baso # (Auto) 0.04 (0-0.2) K/uL Immature Gran # (Auto) 0.20 (0.01-0.20) K/uL Sodium 139 (136-145) mmol/L Potassium 4.0 (3.5-5.1) mmol/L Chloride 101 (98-107) mmol/L Carbon Dioxide 29 (21-32) mmol/L Anion Gap 9 (3-11) BUN 34 H (6-23) mg/dl Creatinine 1.45 H (0.6-1.4) mg/dl Est Cr Clr Drug Dosing 45.5 ml/min Est GFR ( Amer) 52.7 ml/min Est GFR (Non-Af Amer) 45.5 ml/min BUN/Creatinine Ratio 23.4 H (10-20) Glucose 178 H (70-99(Fasting)) mg/dl Calcium 9.5 (8.6-10.3) mg/dl Total Bilirubin 2.4 H (0.2-1.0) mg/dl AST 29 (13-39) U/L ALT 35 (7-52) U/L Alkaline Phosphatase 55 (34-104) U/L Troponin I High Sens 51.1 H* (0-20) pg/ml Total Protein 7.1 (6.0-8.3) gm/dl Albumin 4.3 (3.4-5.0) gm/dl Globulin 2.8 (2.5-4.0) gm/dl Albumin/Globulin Ratio 1.5 (0.9-2) Lipase 1057 H (11-82) U/L SARS-CoV-2, RNA, NAAT NEGATIVE (NEGATIVE) Diagnostic Findings ABDOMEN AND PELVIS CT WITH IV CONTRAST CT DOSE: 1077.80 mGy.cm HISTORY: Acute onset abdominal pain with nausea and vomiting obsstruction, pain , vomiting TECHNIQUE: Multiaxial CT images of the abdomen and pelvis were performed following the IV administration of 88 cc of Optiray, A dose lowering technique was utilized adhering to the principles of ALARA. COMPARISON STUDY: Chest radiograph of same day FINDINGS: Cardiomegaly. Mild bibasilar atelectasis. No pneumatosis or pneumoperitoneum. Unremarkable spleen and adrenal glands. Partial distention of the gallbladder with mild circumferential wall thickening. No biliary ductal dilation. Patency of the hepatic and portal veins. Interstitial and peripancreatic edema with small volume of ascites in the lesser sac with exten stephanie into the upper abdomen and dependent pelvis. There is decreased enhancement throughout the neck and body of the pancreas. No pancreatic ductal dilation or acute peripancreatic fluid collection. 1.5 cm hypodensity within the uncinate process of the pancreas may represent a sidebranch IPMN. Subcentimeter hypodensity of the anterior interpolar left kidney, too small to characterize. 3 mm nonobstructing calculus of the inferior pole right kidney. No hydronephrosis. Prostatomegaly. Urinary bladder wall thickening with partial distention. Small fat filled inguinal hernias. Atherosclerosis of the aorta with infrarenal ectasia, 2.8 cm. No lymphadenopathy. Wall thickening of distal esophagus which is fluid-filled. Small hiatal hernia. Mild wall thickening of the duodenum. No bowel obstruction. Colonic diverticulosis. Appendectomy. Unremarkable soft tissues. Degenerative changes of the IMPRESSION: 1. No bowel obstruction or pneumoperitoneum. 2. Acute pancreatitis with decreased enhancement involving the pancreatic body suspicious for developing parenchymal necrosis (necrotizing pancreatitis). 3. No acute peripancreatic fluid collections or focal peripancreatic necrosis. 4. Mild wall thickening of the duodenum and gallbladder, likely reactive. 5. 3 mm right renal calculus. 6. Small hiatal hernia with mild distal esophageal wall thickening.
--- NOTE | 2022-08-28 14:11 | History & Physical Report ---
Date of Service August 28, 2022 Assessment & Plan (1) Acute pancreatitis: Plan: Patient is admitted with abdominal pain with elevated lipase [place] score was 14. BISAP was 3. Will admit to PCU. will consult GI and Gen surgery. Gal Phillips: multidisciplinary discussion, transfer was denied. Place NPO, patient does not appear to be septic at this time. Patient did receive antibiotics in ER. (2) WILMER (acute kidney injury): Plan: will place on IVF. monitor creatinine hold lisinopril (3) Elevated troponin I level: Plan: likely demand ischemia. History of Present Illness Chief Complaint: abdominal pain Primary Care Provider: Magdaleno Howe, ADAN, EMERGENCY PREPAREDNESS COORDINATOR 77 yo male with PMH described below presents to the ED for a one day history of abdominal pain and nausea and vomiting. Patient is currently confused and is a poor historian. Family is at bedside and is able to provide further history. Patient was having nausea vomiting and abdominal pain, yesterday, and noticed no improvement today which prompted patient to come to the ED> Imaging showed signs of possible necrotizing pancreatitis. Jacqueline Esposito was called, currently no acute indciation for surgery and transfer was denied. Allergies Allergy/AdvReac Type Severity Reaction Status Date / Time piperacillin [From Zosyn] Allergy Hives Unverified 08/28/22 11:30 Sulfa (Sulfonamide Allergy Hives Verified 08/09/22 10:50 Antibiotics) tazobactam [From Zosyn] Allergy Hives Unverified 08/28/22 11:30 Home Medications Medication Instructions Recorded Confirmed Type aspirin 81 mg tablet,delayed 81 mg PO DAILY 12/31/17 08/28/22 History release (Adult Low Dose Aspirin) dxskfwkb-zas-fdrte acid 300 1 tab PO DAILY 12/31/17 08/28/22 History mcg-lycopene 600 mcg-lutein 300 mcg tablet (Centrum Silver Men) lisinopril 5 mg tablet 5 mg PO QAM #90 tabs 11/16/21 08/28/22 Rx mupirocin 2 % topical ointment 1 applic topical TID 02/07/22 08/28/22 History triamcinolone acetonide 0.1 % 1 applic topical DAILY PRN rash 06/12/22 08/28/22 Rx topical cream #80 grams cholecalciferol (vitamin D3) 50 2,000 unit PO DAILY 08/09/22 08/28/22 History mcg (2,000 unit) tablet (Vitamin D3) melatonin 5 mg tablet 10 mg PO HS 08/28/22 08/28/22 History Past Med/Surg History Medical History Cataracts, bilateral Heart murmur Hyperlipidemia Impaired glucose regulation Vitamin D deficiency Surgical History H/O bilateral cataract extraction History of appendectomy History of tonsillectomy Family History Sister Ovarian cancer Hypertension Obesity Mother Diabetes Father Stroke syndrome Other No significant family history Denies family history of Colon cancer Prostate cancer Myocardial infarction Breast cancer Colorectal cancer Social History Smoking Status: Former smoker Tobacco Type: Cigarettes Age Started Using Tobacco: 10; Age Quit Using Tobacco: 17; Smoking End Date: 1964; Second Hand Exposure: No; Do You Dip or Chew Tobacco: No; Hx Alcohol Use: Yes Alcohol type: beer Alcohol Intake Frequency: 2-4 x/Month Hx Substance Use: No Preferred Language: Persian Communication Ability: Effective Visual Impairment: No Limitations Hearing Ability: Normal Manager Collection Required: No Beliefs That Will Affect Care: None marital status: Current Living Situation: Spouse current occupational status: retired How many Children do You have: 1 Other Information That Helps Us Care for You: No Feels Safe at Home: Yes Safety Concerns: Feels Safe At This Time Childhood Exposure to Second-Hand Smoke: Yes Diet: regular caffeine: No during the past year weight has: decreased > 10 lbs Dental Care, Regularly: Yes Physical Activity Frequency: 3-4 Times per Week Seatbelt Use: always Sunscreen Use: Yes Assistive Devices: None Review of Systems Review of Systems: Unobtainable due to cognitive status Physical Exam Constitutional: WD/WN, vitals as above Eyes: PERRL, conjunctivae normal, anicteric sclerae ENMT: external ear and nose normal, oropharynx normal Neck: trachea midline, no thyromegaly Respiratory: normal respiratory effort, lungs clear to auscultation Cardiovascular: Rate/Rhythm: regular rhythm and + tachycardic Gastrointestinal (Abdomen): Inspection/Auscultation: abdomen normal to inspection Percussion/Palpation: + abdomen tender and abdomen soft Musculoskeletal: Head/Neck/Chest: normocephalic and neck supple Skin: no rashes, warm and dry Psychiatric: Orientation: alert, oriented to person and cooperative; + not oriented to place and + not oriented to time Lymphatic: no cervical or axillary lymphadenopathy Results & Data Results & Data Vital Signs (Past 12 Hours) Vital Signs Temp Pulse Pulse Resp BP BP Pulse Ox 08/28/22 11:40 78 08/28/22 11:30 81 25 H 08/28/22 11:20 85 08/28/22 11:10 77 15 08/28/22 11:00 80 08/28/22 10:50 82 18 08/28/22 10:40 86 08/28/22 10:00 97 08/28/22 09:50 96 08/28/22 09:40 97 08/28/22 09:30 98 08/28/22 09:20 77 21 96 08/28/22 09:15 83 17 98 08/28/22 10:12 77 15 97 08/28/22 09:13 98 08/28/22 09:12 79 18 169/82 H 97 08/28/22 08:54 36.5 C 93 H 20 157/90 H 97 O2 Del Method 08/28/22 11:40 08/28/22 11:30 08/28/22 11:20 08/28/22 11:10 08/28/22 11:00 08/28/22 10:50 08/28/22 10:40 08/28/22 10:00 08/28/22 09:50 08/28/22 09:40 08/28/22 09:30 08/28/22 09:20 08/28/22 09:15 08/28/22 10:12 Room Air 08/28/22 09:13 Room Air 08/28/22 09:12 Room Air 08/28/22 08:54 Room Air PG Care Time/CCT Total # of Minutes Spent Total Time Spent with Patient: Total time spent is greater than 50% in coordination of care (as documented) at patient's floor/unit and/or counseling patient: Coding Level of Care Code 26632 INT INP/OBS CARE 3/75MIN Diagnoses Acute pancreatitis K85.90 Acute pancreatitis complication: unspecified Pancreatitis type: unspecified pancreatitis type WILMER (acute kidney injury) N17.9 Elevated troponin I level R77.8 (1) Acute pancreatitis Acute pancreatitis complication: unspecified Pancreatitis type: unspecified pancreatitis type Qualified Code(s): K85.90 - Acute pancreatitis without necrosis or infection, unspecified
[2022-08-28 14:28] LABS: Base Excess VBG 3.5 mEq/L; HCO3 VBG 29 mmol/L; Oxygen Saturation VBG < 60.0 %; PCO2 VBG 47 mmHg (38-50); PO2 VBG 21 mmHg
[2022-08-28 14:57] LABS: BUN Creatinine Ratio 23.5 (10-20); C Reactive Protein 7.08 mg/dl (0-0.5); Creatinine Clr Calc Pharmacy 48.5 ml/min; Est GFR (Non-African American) 49.1 ml/min; Potassium 4.3 mmol/L (3.5-5.1)
[2022-08-28] MEDS ORDERED: TRIAMCINOLONE ACET 0.1% CR 15 GM TUBE TOP PRN (14:58)
[2022-08-28] MEDS: LACTATED RINGER'S 1,000 ML IV SCH ×2 (15:01→22:12)
--- NOTE | 2022-08-28 16:30 | CT Scan Report ---
CT head/brain wo con CLINICAL HISTORY: 77 years-old Male with confusion. Acutely altered mental status TECHNIQUE: Multiple axial CT images of the head were obtained without contrast. A dose lowering tech nique was utilized adhering to the principles of ALARA. CT DOSE: 625.80 mGy.cm COMPARISON: Head CT 12/31/2017. FINDINGS: No acute intracranial hemorrhage, midline shift, intracranial mass, hydrocephalus, territorial ischem ia or abnormal extra-axial collection. Involutional changes with chronic microvascular ischemic disea se. Cerebral vascular calcifications. The calvarium is intact. Prior bilateral lens repair. The paranasal sinuses, mastoid air cells, and m iddle ear cavities are clear. IMPRESSION: No acute intracranial abnormality. ACT 112: Negative or not required by law. The above report was generated using voice recognition software. It may contain grammatical, syntax o r spelling errors. Electronically signed by: Vel Morales M.D. 08/28/2022 4:29 PM
[2022-08-28 16:41] LABS: Appearance Urine Cloudy (Clear); Bacteria Urine Automated Negative (Negative); Bilirubin Urine Negative (Negative); Blood Urine 2+ (Negative); Color Urine Dark Yellow; Epithelial Cell Urine Auto >30 /lpf (0-5); Glucose Urine UA Negative (Negative); Ketones Urine Trace (Negative); Leukocyte Esterase Urine Negative (Negative); Nitrite Urine Negative (Negative); Protein Urine 1+ (Negative); Specific Gravity Urine > 1.045 (1.000-1.030); Urobilinogen Urine Negative (Negative)
[2022-08-28 16:58] LABS: Renal Epithelial Cells Urine 0-5 /lpf (0-5)
--- NOTE | 2022-08-28 17:03 | Electrocardiogram Report ---
Test Reason : Blood Pressure : / mmHG Vent. Rate : 080 BPM Atrial Rate : 080 BPM P-R Int : 152 ms QRS Dur : 088 ms QT Int : 382 ms P-R-T Axes : 045 -23 065 degrees QTc Int : 440 ms Normal sinus rhythm Nonspecific ST abnormality Abnormal ECG When compared with ECG of 31-DEC-2017 04:59, No significant change was found Confirmed by Joe Cantor ([id number]) on 08/28/2022 5:03:43 PM Referred By: REFERRED SELF Confirmed By:Jamel Cantor
--- NOTE | 2022-08-28 18:18 | Magnetic Resonance Report ---
MR brain wo con CLINICAL HISTORY: confusion/ possible left sided droop/ word finding TECHNIQUE: Multiplanar and multisequence MR images of the brain were obtained without intravenous con trast. Comparison: Comparison is made to CT head 08/28/2022 FINDINGS: No abnormal restricted diffusion is identified. Foci of T2 and FLAIR hyperintensity are noted in the paraventricular areas consistent with chronic small vessel ischemic disease. Ex vacuo ventriculomegal y and sulcal enlargement is noted compatible with diffuse volume loss. No mass is seen. There is no m ass effect or midline shift. There is no evidence of acute intraparenchymal hemorrhage. No extra axia l fluid collections are seen. The corpus callosum, pituitary gland, and cerebellar tonsils appear marcelo ssly unremarkable. Flow voids of the major intracranial arterial vessels are identified. The imaged portions of the para nasal sinuses, mastoid air cells, and orbits are unremarkable. IMPRESSION: No acute abnormality and in particular no evidence of acute infarct. ACT 112: Negative or not required by law. Electronically signed by: Avery Campbell M.D. 08/28/2022 6:15 PM
[2022-08-28] MEDS: MUPIROCIN 2% OINT 22 GM TUBE TOP SCH (20:19)
[2022-08-28] MEDS: MELATONIN 3 MG TAB PO SCH (21:29)
[2022-08-28] MEDS ORDERED: MELATONIN 3 MG TAB PO SCH (22:00)
[2022-08-29] MEDS: LACTATED RINGER'S 1,000 ML IV SCH ×3 (04:48→20:17)
[2022-08-29 06:32] LABS: Base Excess VBG 6.4 mEq/L; HCO3 VBG 31 mmol/L; Oxygen Saturation VBG 66.2 %; PCO2 VBG 41 mmHg (38-50); PO2 VBG 38 mmHg; pH VBG 7.48 (7.36-7.41)
[2022-08-29 06:33] LABS: Hematocrit (blood only) 42.8 % (42.0-52.0); Hemoglobin 14.9 g/dl (14.0-18.0); Mean Corpuscular Hemoglobin 32.3 pg (25.0-34.0); Mean Corpuscular Hgb Conc 34.8 g/dL (32.0-36.0); Mean Corpuscular Volume 92.8 fL (80.0-100.0); Mean Platelet Volume 10.6 fL (9.4-12.4); Platelet Count 185 K/uL (130-400); RDW Standard Deviation 44.7 fL (36.4-46.3); Red Blood Count 4.61 M/uL (4.70-6.10); White Blood Count 33.51 K/ul (4.8-10.8)
[2022-08-29 06:44] LABS: Albumin Globulin Ratio 1.4 (0.9-2); Albumin Level 3.3 gm/dl (3.4-5.0); BUN Creatinine Ratio 21.3 (10-20); Bilirubin,Total 2.4 mg/dl (0.2-1.0); C Reactive Protein 22.02 mg/dl (0-0.5); Calcium 8.5 mg/dl (8.6-10.3); Est GFR (African American) 61.9 ml/min; Est GFR (Non-African American) 53.4 ml/min; Globulin 2.4 gm/dl (2.5-4.0); Potassium 4.3 mmol/L (3.5-5.1); Total Protein 5.7 gm/dl (6.0-8.3)
[2022-08-29 06:53] LABS: Basophils # (auto) 0.07 K/uL (0-0.2); Basophils % (auto) 0.2 %; Immature Granulocytes # (auto) 0.36 K/uL (0.01-0.20); Immature Granulocytes % (auto) 1.1 %; Lymphocytes # (auto) 0.95 K/uL (1.2-3.4); Lymphocytes % (auto) 2.8 %; Monocytes # (auto) 2.73 K/uL (0.11-0.59); Monocytes % (auto) 8.1 %; Neutrophils % (auto) 87.8 %
[2022-08-29 07:38] LABS: Troponin I High Sensitivity 97.1 pg/ml (0-20)
[2022-08-29] MEDS ORDERED: cefTRIAXone SODIUM 2,000 MG in DEXTROSE 5% 50 ML IV SCH (09:00)
--- NOTE | 2022-08-29 09:19 | Gastrointestinal Consultation ---
Date of Consultation August 29, 2022 Assessment & Plan (1) Acute pancreatitis: 77 year old male admitted w/ abdominal pain, nausea/vomiting and one episode of dark emesis w/ elevated lipase and imaging concerning for acute pancreatitis w/ possible necrosis. Given persistent mild elevation of liver enzymes will discuss with biliary staff MRCP vs EUS LR 150-200 mL/hr Ensure adequate hydration, watch for a 2 pt drop in HGB Antiemetics PRN Analgesia PRN Trend [employer], glucose Frequent abdominal imaging Consider repeat CT scan for any clinical changes IV PPI BID x 48 hours then may have PO PPI 40 mg once daily Regarding IPMN on imaging, will need OP EUS if EUS not completed during admission Thank you for allowing us to participate in the care of this patient. Please call with any acute changes, questions or concerns. Please see addendum below with additional recommendation from my supervising physician. Discuss with on-call biliary team, recommending MRCP today. Pending result of MRCP may consider EUS/ERCP Sunday Supervising Physician Co-Signing Physician Notes I personally saw and evaluated the patient on 08/29/2022 with DIETER Jordan and agree with her findings and plan of care. 77 y/o M admitted with abdominal pain found to have lipase of [address] findings of acute pancreatitis and concern for developing necrotizing pancreatitis. LFTs all normal other than a mild elevation of t bili of 2.4 (baseline around 1.6). WBC is 33k today. No biliary dilation seen on CT imaging. he denies any alcohol abuse only 1-2 beers weekly. no prior history of pancreatitis. On physical exam patient is confused and altered. he tells me there are multiple people in the room giving a speech and when i ask if he sees other people he states "dont you see them here." His abdomen is soft, non-distended, but tender to deep palpation in the epigastric, RUQ, and LUQ. No LE edema. Will plan for MRCP today for better evaluation of the biliary tree. If evidence of biliary dilation and/or bilirubin continues to rise tomorrow would plan for EUS+/- ERCP at that time. If MRCP does not show biliary dilation and bilirubin stays the same/improves would not plan for endoscopic evaluation at that time. NPO at midnight. Surgery is following for necrotizing pancreatitis as well. No plans for surgical intervention at this time. Continue IV LR at 250/hr for acute pancreatitis. Work up per primary team regarding his acute encephalopathy. CT and MRI brain reviewed from yesterday without any acute findings so this all may be metabolic encephalopathy. Kemi Mcleod DO Gastroenterology and Hepatology History of Present Illness Reason for Consultation: pancreatitis Requesting Physician: Lety Attending Physician: Fransisco Davidson History of Present Illness 77 year old male with history of cardiac murmur, dyslipidemia and others below admitted with pancreatitis - GI asked to evaluate. Pt was seen and evaluated, chart reviewed. notes about 48 hours ago he developed severe upper abd pain associated with nausea/vomiting. He grew concerned as he noticed some dark emesis which prompted ED evaluation. He was ultimately admitted through the ED w/ necrotizing pancreatitis. General surgery was consulted, recommended transfer to tertiary care center. [facility] was contacted, however, transfer was denied as no acute indication for transfer. GI was asked to evaluate for management of pancreatitis. WBC 22 --> 33 [employer] 1.27 TBili 2.4 AST 29 --> 76 ALT 35 --> 125 ALKP 55 --> 80 Lipase 1057 Trop 51 --> 97 CTAP 2022: Unremarkable spleen and adrenal glands. Partial distention of the gallbladder with mild circumferential wall thickening. No biliary ductal dilation. Patency of the hepatic and portal veins. Interstitial and peripancreatic edema with small volume of ascites in the lesser sac with extension into the upper abdomen and dependent pelvis. There is decreased enhancement throughout the neck and body of the pancreas. No pancreatic ductal dilation or acute peripancreatic fluid collection. 1.5 cm hypodensity within the uncinate process of the pancreas may represent a sidebranch IPMN.No bowel obstruction or pneumoperitoneum.. Acute pancreatitis with decreased enhancement involving the pancreatic body suspicious for developing parenchymal necrosis (necrotizing pancreatitis).No acute peripancreatic fluid collections or focal peripancreatic necrosis.. Mild wall thickening of the duodenum and gallbladder, likely reactive. 3 mm right renal calculus. Small hiatal hernia with mild distal esophageal wall thickening. Allergies Allergy/AdvReac Type Severity Reaction Status Date / Time piperacillin [From Zosyn] Allergy Hives Unverified 08/28/22 11:30 Sulfa (Sulfonamide Allergy Hives Verified 08/09/22 10:50 Antibiotics) tazobactam [From Zosyn] Allergy Hives Unverified 08/28/22 11:30 Home Medications Medication Instructions Recorded Confirmed Type aspirin 81 mg tablet,delayed 81 mg PO DAILY 12/31/17 08/28/22 History release (Adult Low Dose Aspirin) [id number] acid 300 1 tab PO DAILY 12/31/17 08/28/22 History mcg-lycopene 600 mcg-lutein 300 mcg tablet (Centrum Silver Men) lisinopril 5 mg tablet 5 mg PO QAM #90 tabs 11/16/21 08/28/22 Rx mupirocin 2 % topical ointment 1 applic topical TID 02/07/22 08/28/22 History triamcinolone acetonide 0.1 % 1 applic topical DAILY PRN rash 06/12/22 08/28/22 Rx topical cream #80 grams cholecalciferol (vitamin D3) 50 2,000 unit PO DAILY 08/09/22 08/28/22 History mcg (2,000 unit) tablet (Vitamin D3) melatonin 5 mg tablet 10 mg PO HS 08/28/22 08/28/22 History Patient History Medical History Cataracts, bilateral Heart murmur Hyperlipidemia Impaired glucose regulation Vitamin D deficiency Surgical History H/O bilateral cataract extraction History of appendectomy History of tonsillectomy Family History Sister Ovarian cancer Hypertension Obesity Mother Diabetes Father Stroke syndrome Other No significant family history Denies family history of Colon cancer Prostate cancer Myocardial infarction Breast cancer Colorectal cancer Social History Smoking Status: Former smoker Tobacco Type: Cigarettes Age Started Using Tobacco: 10; Age Quit Using Tobacco: 17; Smoking End Date: 1964; Second Hand Exposure: No; Do You Dip or Chew Tobacco: No; Hx Alcohol Use: Yes Alcohol type: beer Alcohol Intake Frequency: 2-4 x/Month Hx Substance Use: No Preferred Language: Nigerien Communication Ability: Effective Visual Impairment: No Limitations Hearing Ability: Normal Nurse Chemical Dependency Required: No Beliefs That Will Affect Care: None marital status: Current Living Situation: Spouse current occupational status: retired How many Children do You have: 1 Other Information That Helps Us Care for You: No Feels Safe at Home: Yes Safety Concerns: Feels Safe At This Time Childhood Exposure to Second-Hand Smoke: Yes Diet: regular caffeine: No during the past year weight has: decreased > 10 lbs Dental Care, Regularly: Yes Physical Activity Frequency: 3-4 Times per Week Seatbelt Use: always Sunscreen Use: Yes Assistive Devices: Glasses Review of Systems Review of Systems: All systems reviewed & are unremarkable except as noted in HPI & below Physical Exam Constitutional: WD/WN, vitals as above Respiratory: normal respiratory effort, lungs clear to auscultation Cardiovascular: Rate/Rhythm: regular rate Gastrointestinal (Abdomen): Inspection/Auscultation: abdomen normal to inspection, + abdomen distended and normal bowel sounds Percussion/Palpation: + abdomen tender (upper abd pain with light palpation) and abdomen soft Skin: no rashes, warm and dry Results & Data Vital Signs (Past 12 Hours) Vital Signs Temp Pulse Pulse Pulse Resp BP Pulse Ox 08/29/22 08:14 36.8 C 86 20 141/71 H 96 08/29/22 03:15 37.3 C 88 17 164/82 H 93 08/28/22 22:05 79 08/28/22 23:41 36.4 C L 84 16 153/77 H 91 O2 Del Method 08/29/22 08:14 Room Air 08/29/22 03:15 Room Air 08/28/22 22:05 08/28/22 23:41 Room Air Laboratory Results 08/29/22 08/29/22 08/29/22 Range/Units 06:04 06:04 06:04 WBC (4.8-10.8) K/ul RBC (4.70-6.10) M/uL Hgb (14.0-18.0) g/dl Hct (42.0-52.0) % MCV (80.0-100.0) fL MCH (25.0-34.0) pg MCHC (32.0-36.0) g/dL RDW Std Deviation (36.4-46.3) fL RDW Coeff of Zane (11.5-14.5) % Plt Count (130-400) K/uL MPV (9.4-12.4) fL Immature Gran % (Auto) % Neut % (Auto) % Lymph % (Auto) % Boyd % (Auto) % Eos % (Auto) % Baso % (Auto) % Neut # (Auto) (1.40-6.50) K/uL Lymph # (Auto) (1.2-3.4) K/uL Boyd # (Auto) (0.11-0.59) K/uL Eos # (Auto) (0-0.50) K/uL Baso # (Auto) (0-0.2) K/uL Immature Gran # (Auto) (0.01-0.20) K/uL VBG pH 7.48 H (7.36-7.41) VBG pCO2 41 (38-50) mmHg VBG pO2 38 mmHg VBG HCO3 31 mmol/L VBG O2 Saturation 66.2 % VBG Base Excess 6.4 mEq/L Sodium 139 (136-145) mmol/L Potassium 4.3 (3.5-5.1) mmol/L Chloride 106 (98-107) mmol/L Carbon Dioxide 27 (21-32) mmol/L Anion Gap 6 (3-11) BUN 27 H (6-23) mg/dl Creatinine 1.27 (0.6-1.4) mg/dl Est Cr Clr Drug Dosing 52.0 ml/min Est GFR ( Amer) 61.9 ml/min Est GFR (Non-Af Amer) 53.4 ml/min BUN/Creatinine Ratio 21.3 H (10-20) Glucose 124 H (70-99(Fasting)) mg/dl Calcium 8.5 L (8.6-10.3) mg/dl Total Bilirubin 2.4 H (0.2-1.0) mg/dl AST 76 H (13-39) U/L ALT 125 H (7-52) U/L Alkaline Phosphatase 80 (34-104) U/L Troponin I High Sens 97.1 H* D (0-20) pg/ml C-Reactive Protein 22.02 H (0-0.5) mg/dl Total Protein 5.7 L (6.0-8.3) gm/dl Albumin 3.3 L (3.4-5.0) gm/dl Globulin 2.4 L (2.5-4.0) gm/dl Albumin/Globulin Ratio 1.4 (0.9-2) Lipase Pending (11-82) U/L Procalcitonin 0.62 H (0-0.5) ng/ml Urine Color Urine Appearance (Clear) Urine pH (4.5-7.5) Ur Specific Calhoun (1.000-1.030) Urine Protein (Negative) Urine Glucose (UA) (Negative) Urine Ketones (Negative) Urine Blood (Negative) Urine Nitrite (Negative) Urine Bilirubin (Negative) Urine Urobilinogen (Negative) Ur Leukocyte Esterase (Negative) Urine WBC (Auto) (0-5) /hpf Urine RBC (Auto) (0-4) /hpf U Hyaline Cast (Auto) (0-5) /lpf U Epithel Cells (Auto) (0-5) /lpf Urine Bacteria (Auto) (Negative) Ur Renal Epithelial Cell (0-5) /lpf SARS-CoV-2, RNA, NAAT (NEGATIVE) 08/29/22 08/28/22 08/28/22 Range/Units 06:04 Unknown 16:10 WBC 33.51 H* (4.8-10.8) K/ul RBC 4.61 L (4.70-6.10) M/uL Hgb 14.9 (14.0-18.0) g/dl Hct 42.8 (42.0-52.0) % MCV 92.8 (80.0-100.0) fL MCH 32.3 (25.0-34.0) pg MCHC 34.8 (32.0-36.0) g/dL RDW Std Deviation 44.7 (36.4-46.3) fL RDW Coeff of Zane 13.0 (11.5-14.5) % Plt Count 185 (130-400) K/uL MPV 10.6 (9.4-12.4) fL Immature Gran % (Auto) 1.1 % Neut % (Auto) 87.8 % Lymph % (Auto) 2.8 % Boyd % (Auto) 8.1 % Eos % (Auto) 0.0 % Baso % (Auto) 0.2 % Neut # (Auto) 29.40 H (1.40-6.50) K/uL Lymph # (Auto) 0.95 L (1.2-3.4) K/uL Boyd # (Auto) 2.73 H (0.11-0.59) K/uL Eos # (Auto) 0.00 (0-0.50) K/uL Baso # (Auto) 0.07 (0-0.2) K/uL Immature Gran # (Auto) 0.36 H (0.01-0.20) K/uL VBG pH (7.36-7.41) VBG pCO2 (38-50) mmHg VBG pO2 mmHg VBG HCO3 mmol/L VBG O2 Saturation % VBG Base Excess mEq/L Sodium (136-145) mmol/L Potassium (3.5-5.1) mmol/L Chloride (98-107) mmol/L Carbon Dioxide (21-32) mmol/L Anion Gap (3-11) BUN (6-23) mg/dl Creatinine (0.6-1.4) mg/dl Est Cr Clr Drug Dosing ml/min Est GFR ( Amer) ml/min Est GFR (Non-Af Amer) ml/min BUN/Creatinine Ratio (10-20) Glucose (70-99(Fasting)) mg/dl Calcium (8.6-10.3) mg/dl Total Bilirubin (0.2-1.0) mg/dl AST (13-39) U/L ALT (7-52) U/L Alkaline Phosphatase (34-104) U/L Troponin I High Sens (0-20) pg/ml C-Reactive Protein (0-0.5) mg/dl Total Protein (6.0-8.3) gm/dl Albumin (3.4-5.0) gm/dl Globulin (2.5-4.0) gm/dl Albumin/Globulin Ratio (0.9-2) Lipase (11-82) U/L Procalcitonin (0-0.5) ng/ml Urine Color Dark Yellow Urine Appearance Cloudy A (Clear) Urine pH 5.0 (4.5-7.5) Ur Specific Calhoun > 1.045 H (1.000-1.030) Urine Protein 1+ H (Negative) Urine Glucose (UA) Negative (Negative) Urine Ketones Trace H (Negative) Urine Blood 2+ H (Negative) Urine Nitrite Negative (Negative) Urine Bilirubin Negative (Negative) Urine Urobilinogen Negative (Negative) Ur Leukocyte Esterase Negative (Negative) Urine WBC (Auto) 1-5 (0-5) /hpf Urine RBC (Auto) 5-10 H (0-4) /hpf U Hyaline Cast (Auto) 1-5 (0-5) /lpf U Epithel Cells (Auto) >30 H (0-5) /lpf Urine Bacteria (Auto) Negative (Negative) Ur Renal Epithelial Cell 0-5 (0-5) /lpf SARS-CoV-2, RNA, NAAT NEGATIVE (NEGATIVE) 08/28/22 08/28/22 08/28/22 Range/Units 14:10 14:10 14:10 WBC (4.8-10.8) K/ul RBC (4.70-6.10) M/uL Hgb (14.0-18.0) g/dl Hct (42.0-52.0) % MCV (80.0-100.0) fL MCH (25.0-34.0) pg MCHC (32.0-36.0) g/dL RDW Std Deviation (36.4-46.3) fL RDW Coeff of Zane (11.5-14.5) % Plt Count (130-400) K/uL MPV (9.4-12.4) fL Immature Gran % (Auto) % Neut % (Auto) % Lymph % (Auto) % Boyd % (Auto) % Eos % (Auto) % Baso % (Auto) % Neut # (Auto) (1.40-6.50) K/uL Lymph # (Auto) (1.2-3.4) K/uL Boyd # (Auto) (0.11-0.59) K/uL Eos # (Auto) (0-0.50) K/uL Baso # (Auto) (0-0.2) K/uL Immature Gran # (Auto) (0.01-0.20) K/uL VBG pH 7.40 (7.36-7.41) VBG pCO2 47 (38-50) mmHg VBG pO2 21 mmHg VBG HCO3 29 mmol/L VBG O2 Saturation < 60.0 % VBG Base Excess 3.5 mEq/L Sodium 139 (136-145) mmol/L Potassium 4.3 (3.5-5.1) mmol/L Chloride 104 (98-107) mmol/L Carbon Dioxide 27 (21-32) mmol/L Anion Gap 8 (3-11) BUN 32 H (6-23) mg/dl Creatinine 1.36 (0.6-1.4) mg/dl Est Cr Clr Drug Dosing 48.5 ml/min Est GFR ( Amer) 57.0 ml/min Est GFR (Non-Af Amer) 49.1 ml/min BUN/Creatinine Ratio 23.5 H (10-20) Glucose 161 H (70-99(Fasting)) mg/dl Calcium 9.0 (8.6-10.3) mg/dl Total Bilirubin (0.2-1.0) mg/dl AST (13-39) U/L ALT (7-52) U/L Alkaline Phosphatase (34-104) U/L Troponin I High Sens (0-20) pg/ml C-Reactive Protein 7.08 H (0-0.5) mg/dl Total Protein (6.0-8.3) gm/dl Albumin (3.4-5.0) gm/dl Globulin (2.5-4.0) gm/dl Albumin/Globulin Ratio (0.9-2) Lipase (11-82) U/L Procalcitonin 0.21 (0-0.5) ng/ml Urine Color Urine Appearance (Clear) Urine pH (4.5-7.5) Ur Specific Calhoun (1.000-1.030) Urine Protein (Negative) Urine Glucose (UA) (Negative) Urine Ketones (Negative) Urine Blood (Negative) Urine Nitrite (Negative) Urine Bilirubin (Negative) Urine Urobilinogen (Negative) Ur Leukocyte Esterase (Negative) Urine WBC (Auto) (0-5) /hpf Urine RBC (Auto) (0-4) /hpf U Hyaline Cast (Auto) (0-5) /lpf U Epithel Cells (Auto) (0-5) /lpf Urine Bacteria (Auto) (Negative) Ur Renal Epithelial Cell (0-5) /lpf SARS-CoV-2, RNA, NAAT (NEGATIVE) 08/28/22 08/28/22 Range/Units 09:10 09:10 WBC 22.92 H (4.8-10.8) K/ul RBC 5.39 (4.70-6.10) M/uL Hgb 17.2 (14.0-18.0) g/dl Hct 49.3 (42.0-52.0) % MCV 91.5 (80.0-100.0) fL MCH 31.9 (25.0-34.0) pg MCHC 34.9 (32.0-36.0) g/dL RDW Std Deviation 42.5 (36.4-46.3) fL RDW Coeff of Zane 12.8 (11.5-14.5) % Plt Count 251 (130-400) K/uL MPV 10.7 (9.4-12.4) fL Immature Gran % (Auto) 0.9 % Neut % (Auto) 86.2 % Lymph % (Auto) 3.5 % Boyd % (Auto) 9.2 % Eos % (Auto) 0.0 % Baso % (Auto) 0.2 % Neut # (Auto) 19.76 H (1.40-6.50) K/uL Lymph # (Auto) 0.80 L (1.2-3.4) K/uL Boyd # (Auto) 2.12 H (0.11-0.59) K/uL Eos # (Auto) 0.00 (0-0.50) K/uL Baso # (Auto) 0.04 (0-0.2) K/uL Immature Gran # (Auto) 0.20 (0.01-0.20) K/uL VBG pH (7.36-7.41) VBG pCO2 (38-50) mmHg VBG pO2 mmHg VBG HCO3 mmol/L VBG O2 Saturation % VBG Base Excess mEq/L Sodium 139 (136-145) mmol/L Potassium 4.0 (3.5-5.1) mmol/L Chloride 101 (98-107) mmol/L Carbon Dioxide 29 (21-32) mmol/L Anion Gap 9 (3-11) BUN 34 H (6-23) mg/dl Creatinine 1.45 H (0.6-1.4) mg/dl Est Cr Clr Drug Dosing 45.5 ml/min Est GFR ( Amer) 52.7 ml/min Est GFR (Non-Af Amer) 45.5 ml/min BUN/Creatinine Ratio 23.4 H (10-20) Glucose 178 H (70-99(Fasting)) mg/dl Calcium 9.5 (8.6-10.3) mg/dl Total Bilirubin 2.4 H (0.2-1.0) mg/dl AST 29 (13-39) U/L ALT 35 (7-52) U/L Alkaline Phosphatase 55 (34-104) U/L Troponin I High Sens 51.1 H* (0-20) pg/ml C-Reactive Protein (0-0.5) mg/dl Total Protein 7.1 (6.0-8.3) gm/dl Albumin 4.3 (3.4-5.0) gm/dl Globulin 2.8 (2.5-4.0) gm/dl Albumin/Globulin Ratio 1.5 (0.9-2) Lipase 1057 H (11-82) U/L Procalcitonin (0-0.5) ng/ml Urine Color Urine Appearance (Clear) Urine pH (4.5-7.5) Ur Specific Calhoun (1.000-1.030) Urine Protein (Negative) Urine Glucose (UA) (Negative) Urine Ketones (Negative) Urine Blood (Negative) Urine Nitrite (Negative) Urine Bilirubin (Negative) Urine Urobilinogen (Negative) Ur Leukocyte Esterase (Negative) Urine WBC (Auto) (0-5) /hpf Urine RBC (Auto) (0-4) /hpf U Hyaline Cast (Auto) (0-5) /lpf U Epithel Cells (Auto) (0-5) /lpf Urine Bacteria (Auto) (Negative) Ur Renal Epithelial Cell (0-5) /lpf SARS-CoV-2, RNA, NAAT (NEGATIVE) (1) Acute pancreatitis Acute pancreatitis complication: unspecified Pancreatitis type: unspecified pancreatitis type Qualified Code(s): K85.90 - Acute pancreatitis without necrosis or infection, unspecified
[2022-08-29] MEDS: CEFEPIME 2,000 MG in SYRINGE 0 ML IV SCH ×2 (10:02→20:22)
[2022-08-29] MEDS: MUPIROCIN 2% OINT 22 GM TUBE TOP SCH ×3 (10:02→21:48)
[2022-08-29] MEDS: metroNIDAZOLE 500 MG/100 ML BAG IV SCH ×2 (10:02→17:28)
[2022-08-29] MEDS ORDERED: MoRPHine SULFATE 2 MG/ML CARP IV PRN (10:27)
[2022-08-29] MEDS ORDERED: MoRPHine SULFATE 4 MG/ML 1 ML CARP\\VIAL IV PRN (10:27)
[2022-08-29] MEDS ORDERED: ONDANSETRON INJ 2 MG/ML 2 ML VIAL IV PRN (10:27)
--- NOTE | 2022-08-29 10:29 | Surgery Progress Note ---
Date of Service August 29, 2022 Assessment & Plan (1) Acute pancreatitis: Plan: 77 year-old male with 1 day history of nausea, vomiting x 7 and upper abdominal pain with elevated leukocytosis of 22k, t. bili of 2.4, and lipase of [address] scan of abd/pelvis showing acute pancreatitis with decreased enhancement of pancreatic body suspicious for developing necrotizing pancreatitis. No peripancreatic fluid collections or focal peripancreatic necrosis. 08/29/2022: afebrile leukocytosis increased to 33K (22K yesterday) t. bili 2.4, LFTS now elevated RUQ pain on examination Plan: Given the elevation of the wbc and now elevation of LFTs with t. bili stable and elevated at 2.4, would recommend biliary evaluation with MRCP pending GI recommendations would also recommend IV antibiotics Continue NPO for bowel rest Antiemetics as needed pain management as needed IV fluid hydration, may need to increase fluid rate given concern for developing necrotizing pancreatitis. No surgical intervention required at this time, will require close monitoring If WBC continues to increase would recommend repeating CT scan of abdomen/pelvis with IV contrast tomorrow to eval for any development of peripancreatic fluid collections/abscess. Continue medical management repeat am labs Dr. Hyman has seen and examined pt, agrees with above. Admission and Anticipated Discharge Date Admission Date: August 28, 2022 Subjective states he has some hiccups and then has some abdominal pain in the mid upper belly, stable compared to yesterday no nausea or vomiting not passing gas today seems confused but stable compared to ER evaluation, thought he was at [facility] but new that we were in the month of august. Physical Exam Constitutional: WD/WN, vitals as above cooperative, comfortable and + overweight; no acute distress, not ill appearing, not combative, not diaphoretic and not lethargic Respiratory: normal respiratory effort; no respiratory distress, no labored breathing and no retractions Gastrointestinal (Abdomen): Inspection/Auscultation: abdomen normal to inspection and + hypoactive bowel sounds; abdomen not distended and + abnormal bowel sounds Percussion/Palpation: + abdomen tender (RUQ and epigastrium), + guarding (voluntary in the RUQ on mild palpation) and abdomen soft; abdomen not rigid Skin: no rashes, warm and dry no jaundice Psychiatric: Orientation: alert, oriented to person and oriented to time; + no t oriented x 3 and + not oriented to place Results & Data Vital Signs (Past 12 Hours) Vital Signs Temp Pulse Pulse Resp BP Pulse Ox O2 Del Method 08/29/22 08:14 36.8 C 86 20 141/71 H 96 Room Air 08/29/22 03:15 37.3 C 88 17 164/82 H 93 Room Air 08/28/22 23:41 36.4 C L 84 16 153/77 H 91 Room Air Laboratory Results 08/29/22 08/29/22 08/29/22 Range/Units 06:04 06:04 06:04 WBC (4.8-10.8) K/ul RBC (4.70-6.10) M/uL Hgb (14.0-18.0) g/dl Hct (42.0-52.0) % MCV (80.0-100.0) fL MCH (25.0-34.0) pg MCHC (32.0-36.0) g/dL RDW Std Deviation (36.4-46.3) fL RDW Coeff of Zane (11.5-14.5) % Plt Count (130-400) K/uL MPV (9.4-12.4) fL Immature Gran % (Auto) % Neut % (Auto) % Lymph % (Auto) % [place] % (Auto) % Eos % (Auto) % Baso % (Auto) % Neut # (Auto) (1.40-6.50) K/uL Lymph # (Auto) (1.2-3.4) K/uL [place] # (Auto) (0.11-0.59) K/uL Eos # (Auto) (0-0.50) K/uL Baso # (Auto) (0-0.2) K/uL Immature Gran # (Auto) (0.01-0.20) K/uL VBG pH 7.48 H (7.36-7.41) VBG pCO2 41 (38-50) mmHg VBG pO2 38 mmHg VBG HCO3 31 mmol/L VBG O2 Saturation 66.2 % VBG Base Excess 6.4 mEq/L Sodium 139 (136-145) mmol/L Potassium 4.3 (3.5-5.1) mmol/L Chloride 106 (98-107) mmol/L Carbon Dioxide 27 (21-32) mmol/L Anion Gap 6 (3-11) BUN 27 H (6-23) mg/dl Creatinine 1.27 (0.6-1.4) mg/dl Est Cr Clr Drug Dosing 52.0 ml/min Est GFR ( Amer) 61.9 ml/min Est GFR (Non-Af Amer) 53.4 ml/min BUN/Creatinine Ratio 21.3 H (10-20) Glucose 124 H (70-99(Fasting)) mg/dl Calcium 8.5 L (8.6-10.3) mg/dl Total Bilirubin 2.4 H (0.2-1.0) mg/dl AST 76 H (13-39) U/L ALT 125 H (7-52) U/L Alkaline Phosphatase 80 (34-104) U/L Troponin I High Sens 97.1 H* D (0-20) pg/ml C-Reactive Protein 22.02 H (0-0.5) mg/dl Total Protein 5.7 L (6.0-8.3) gm/dl Albumin 3.3 L (3.4-5.0) gm/dl Globulin 2.4 L (2.5-4.0) gm/dl Albumin/Globulin Ratio 1.4 (0.9-2) Lipase 304 H (11-82) U/L Procalcitonin 0.62 H (0-0.5) ng/ml Urine Color Urine Appearance (Clear) Urine pH (4.5-7.5) Ur Specific [place] (1.000-1.030) Urine Protein (Negative) Urine Glucose (UA) (Negative) Urine Ketones (Negative) Urine Blood (Negative) Urine Nitrite (Negative) Urine Bilirubin (Negative) Urine Urobilinogen (Negative) Ur Leukocyte Esterase (Negative) Urine WBC (Auto) (0-5) /hpf Urine RBC (Auto) (0-4) /hpf U Hyaline Cast (Auto) (0-5) /lpf U Epithel Cells (Auto) (0-5) /lpf Urine Bacteria (Auto) (Negative) Ur Renal Epithelial Cell (0-5) /lpf SARS-CoV-2, RNA, NAAT (NEGATIVE) 08/29/22 08/28/22 08/28/22 Range/Units 06:04 Unknown 16:10 WBC 33.51 H* (4.8-10.8) K/ul RBC 4.61 L (4.70-6.10) M/uL Hgb 14.9 (14.0-18.0) g/dl Hct 42.8 (42.0-52.0) % MCV 92.8 (80.0-100.0) fL MCH 32.3 (25.0-34.0) pg MCHC 34.8 (32.0-36.0) g/dL RDW Std Deviation 44.7 (36.4-46.3) fL RDW Coeff of Zane 13.0 (11.5-14.5) % Plt Count 185 (130-400) K/uL MPV 10.6 (9.4-12.4) fL Immature Gran % (Auto) 1.1 % Neut % (Auto) 87.8 % Lymph % (Auto) 2.8 % [place] % (Auto) 8.1 % Eos % (Auto) 0.0 % Baso % (Auto) 0.2 % Neut # (Auto) 29.40 H (1.40-6.50) K/uL Lymph # (Auto) 0.95 L (1.2-3.4) K/uL [place] # (Auto) 2.73 H (0.11-0.59) K/uL Eos # (Auto) 0.00 (0-0.50) K/uL Baso # (Auto) 0.07 (0-0.2) K/uL Immature Gran # (Auto) 0.36 H (0.01-0.20) K/uL VBG pH (7.36-7.41) VBG pCO2 (38-50) mmHg VBG pO2 mmHg VBG HCO3 mmol/L VBG O2 Saturation % VBG Base Excess mEq/L Sodium (136-145) mmol/L Potassium (3.5-5.1) mmol/L Chloride (98-107) mmol/L Carbon Dioxide (21-32) mmol/L Anion Gap (3-11) BUN (6-23) mg/dl Creatinine (0.6-1.4) mg/dl Est Cr Clr Drug Dosing ml/min Est GFR ( Amer) ml/min Est GFR (Non-Af Amer) ml/min BUN/Creatinine Ratio (10-20) Glucose (70-99(Fasting)) mg/dl Calcium (8.6-10.3) mg/dl Total Bilirubin (0.2-1.0) mg/dl AST (13-39) U/L ALT (7-52) U/L Alkaline Phosphatase (34-104) U/L Troponin I High Sens (0-20) pg/ml C-Reactive Protein (0-0.5) mg/dl Total Protein (6.0-8.3) gm/dl Albumin (3.4-5.0) gm/dl Globulin (2.5-4.0) gm/dl Albumin/Globulin Ratio (0.9-2) Lipase (11-82) U/L Procalcitonin (0-0.5) ng/ml Urine Color Dark Yellow Urine Appearance Cloudy A (Clear) Urine pH 5.0 (4.5-7.5) Ur Specific [place] > 1.045 H (1.000-1.030) Urine Protein 1+ H (Negative) Urine Glucose (UA) Negative (Negative) Urine Ketones Trace H (Negative) Urine Blood 2+ H (Negative) Urine Nitrite Negative (Negative) Urine Bilirubin Negative (Negative) Urine Urobilinogen Negative (Negative) Ur Leukocyte Esterase Negative (Negative) Urine WBC (Auto) 1-5 (0-5) /hpf Urine RBC (Auto) 5-10 H (0-4) /hpf U Hyaline Cast (Auto) 1-5 (0-5) /lpf U Epithel Cells (Auto) >30 H (0-5) /lpf Urine Bacteria (Auto) Negative (Negative) Ur Renal Epithelial Cell 0-5 (0-5) /lpf SARS-CoV-2, RNA, NAAT NEGATIVE (NEGATIVE) 08/28/22 08/28/22 08/28/22 Range/Units 14:10 14:10 14:10 WBC (4.8-10.8) K/ul RBC (4.70-6.10) M/uL Hgb (14.0-18.0) g/dl Hct (42.0-52.0) % MCV (80.0-100.0) fL MCH (25.0-34.0) pg MCHC (32.0-36.0) g/dL RDW Std Deviation (36.4-46.3) fL RDW Coeff of Zane (11.5-14.5) % Plt Count (130-400) K/uL MPV (9.4-12.4) fL Immature Gran % (Auto) % Neut % (Auto) % Lymph % (Auto) % [place] % (Auto) % Eos % (Auto) % Baso % (Auto) % Neut # (Auto) (1.40-6.50) K/uL Lymph # (Auto) (1.2-3.4) K/uL [place] # (Auto) (0.11-0.59) K/uL Eos # (Auto) (0-0.50) K/uL Baso # (Auto) (0-0.2) K/uL Immature Gran # (Auto) (0.01-0.20) K/uL VBG pH 7.40 (7.36-7.41) VBG pCO2 47 (38-50) mmHg VBG pO2 21 mmHg VBG HCO3 29 mmol/L VBG O2 Saturation < 60.0 % VBG Base Excess 3.5 mEq/L Sodium 139 (136-145) mmol/L Potassium 4.3 (3.5-5.1) mmol/L Chloride 104 (98-107) mmol/L Carbon Dioxide 27 (21-32) mmol/L Anion Gap 8 (3-11) BUN 32 H (6-23) mg/dl Creatinine 1.36 (0.6-1.4) mg/dl Est Cr Clr Drug Dosing 48.5 ml/min Est GFR ( Amer) 57.0 ml/min Est GFR (Non-Af Amer) 49.1 ml/min BUN/Creatinine Ratio 23.5 H (10-20) Glucose 161 H (70-99(Fasting)) mg/dl Calcium 9.0 (8.6-10.3) mg/dl Total Bilirubin (0.2-1.0) mg/dl AST (13-39) U/L ALT (7-52) U/L Alkaline Phosphatase (34-104) U/L Troponin I High Sens (0-20) pg/ml C-Reactive Protein 7.08 H (0-0.5) mg/dl Total Protein (6.0-8.3) gm/dl Albumin (3.4-5.0) gm/dl Globulin (2.5-4.0) gm/dl Albumin/Globulin Ratio (0.9-2) Lipase (11-82) U/L Procalcitonin 0.21 (0-0.5) ng/ml Urine Color Urine Appearance (Clear) Urine pH (4.5-7.5) Ur Specific [place] (1.000-1.030) Urine Protein (Negative) Urine Glucose (UA) (Negative) Urine Ketones (Negative) Urine Blood (Negative) Urine Nitrite (Negative) Urine Bilirubin (Negative) Urine Urobilinogen (Negative) Ur Leukocyte Esterase (Negative) Urine WBC (Auto) (0-5) /hpf Urine RBC (Auto) (0-4) /hpf U Hyaline Cast (Auto) (0-5) /lpf U Epithel Cells (Auto) (0-5) /lpf Urine Bacteria (Auto) (Negative) Ur Renal Epithelial Cell (0-5) /lpf SARS-CoV-2, RNA, NAAT (NEGATIVE)
[2022-08-29] MEDS: PANTOprazole 40 MG in SYRINGE 0 ML IV SCH ×2 (11:40→20:22)
--- NOTE | 2022-08-29 14:57 | Magnetic Resonance Report ---
MRCP CLINICAL HISTORY: Acute pancreatitis. Generalized abdominal pain. Nausea and vomiting. COMPARISON STUDY: Abdominal CT dated 08/28/2022. TECHNIQUE: Abdominal MRCP is performed utilizing various T2-weighted sequences in the axial and coron al planes. 3-D reformats are created and assessed. IV contrast was not administered for this examinat ion. The examination is compromised by motion artifact. FINDINGS: The gallbladder is distended but otherwise normal in appearance. No definite gallstones are seen. Th ere is no gallbladder wall thickening. There is no intra or extrahepatic biliary ductal dilatation. T he common bile duct measures up to 3 mm. Question a meniscus just above the ampulla on coronal image #83. A small distal common bile duct stone is not excluded. This could also be artifactual. The pancr eatic duct is normal in caliber. The pancreas is edematous with peripancreatic inflammation and fluid. The appearance is consistent wi th acute pancreatitis. There is a 2.0 cm ovoid cystic lesion in the pancreatic head. Additional punct ate cystic foci are suggested more distally within the pancreas. There is a small volume of upper abd ominal ascites. The unenhanced liver, spleen, adrenal glands, and kidneys are grossly unremarkable. T here is no evidence of bowel obstruction. The heart is enlarged. A small hiatal hernia is noted. Ther e are small left and trace right pleural effusions with dependent consolidation. The abdominal aorta is normal in course and caliber. IMPRESSION: 1. There is evidence of acute pancreatitis. 2. The gallbladder is mildly distended but otherwise normal in appearance. No definite gallstones are seen. 3. There is no intra or extrahepatic biliary ductal dilatation. 4. Question artifact versus a small meniscus in the distal common bile duct just above the ampulla. A small distal common duct stone is not excluded. 5. A 2.0 cm simple cystic lesion in the pancreatic head is typical for a side-branch IPMN versus a mu cinous cystic neoplasm. Nonemergent GI follow up is recommended. 6. Ascites and pleural effusions. Pleural effusions are new from yesterday. 7. Additional findings as above. Electronically signed by: Iftikhar Silver M.D. 08/29/2022 2:56 PM
[2022-08-29] MEDS: MELATONIN 3 MG TAB PO SCH (21:43)
--- NOTE | 2022-08-29 21:53 | Hospitalist Progress Note ---
Date of Service August 29, 2022 Assessment & Plan (1) Acute pancreatitis: Plan: Patient is admitted with abdominal pain with elevated lipase POKAGON score was 14. BISAP was 3. Will admit to PCU. will consult GI and Gen surgery. Jd?Liyah Phillips: multidisciplinary discussion, transfer was denied. Place NPO, patient does not appear to be septic at this time. Patient did receive antibiotics in ER. 08/29 Given worsening lWBC, procal, will add antibiotics Concern for sepsis, source likely gallstones (choledecolithiasis) vs possible necrotizing pancreas. Flagyl and metronidazol. LFTs are worsening. Will consult Gastro for possible need of ERCP as concern that gallstones may be the culprit as: patient and family report little to no alcohol use at home, and LFTs appear worse. Will continue IVF, but will cut back to 100 ml/hr as Lipase is improving. MRCP showed some pleural effusions. Plan for possible EUS on 08/30 Despite worsening lWBC, patient clinically appears to be improving and lipase is trending in the right direction. (2) WILMER (acute kidney injury): Plan: will place on IVF. monitor creatinine: improving hold lisinopril (3) Elevated troponin I level: Plan: likely demand ischemia. (4) Acute metabolic encephalopathy: Plan: Patient is with delirium. Liikely secondary to his overall clinical picture. Patient appears to be improving, now oriented to person and place. Patient reji likely wax and wane. MRI and CT head were negative. Admission and Anticipated Discharge Date Admission Date: August 28, 2022 Subjective Patient appears less confused today. Patient reports his pain has improved, but is still present. Review of Systems Review of Systems: All systems reviewed & are unremarkable except as noted in HPI & below Physical Exam Constitutional: WD/WN, vitals as above Eyes: PERRL, conjunctivae normal, anicteric sclerae ENMT: external ear and nose normal, oropharynx normal Neck: trachea midline, no thyromegaly Respiratory: normal respiratory effort, lungs clear to auscultation Cardiovascular: Rate/Rhythm: regular rhythm and + tachycardic Gastrointestinal (Abdomen): Inspection/Auscultation: abdomen normal to inspection Percussion/Palpation: + abdomen tender (decreased) and abdomen soft Musculoskeletal: Head/Neck/Chest: normocephalic and neck supple Skin: no rashes, warm and dry Psychiatric: Orientation: alert, oriented to person, oriented to place and cooperative; + not oriented to time Lymphatic: no cervical or axillary lymphadenopathy Results & Data Results & Data Vital Signs (Past 12 Hours) Vital Signs Temp Pulse Pulse Resp BP BP Pulse Ox 08/29/22 19:00 37.9 C H 81 16 139/67 90 08/29/22 16:01 36.9 C 80 16 134/74 134/74 96 08/29/22 15:32 79 08/29/22 11:00 36.7 C 77 18 131/80 99 08/29/22 10:35 81 O2 Del Method 08/29/22 19:00 Room Air 08/29/22 16:01 Room Air 08/29/22 15:32 08/29/22 11:00 Room Air 08/29/22 10:35 PG Care Time/CCT Total # of Minutes Spent Total Time Spent with Patient: Total time spent is greater than 50% in coordination of care (as documented) at patient's floor/unit and/or counseling patient: Coding Level of Care Code 65929 SUB INP/OBS CARE 3/50MIN Diagnoses Acute pancreatitis K85.90 Acute pancreatitis complication: unspecified Pancreatitis type: unspecified pancreatitis type WILMER (acute kidney injury) N17.9 Elevated troponin I level R77.8 Acute metabolic encephalopathy G93.41 (1) Acute pancreatitis Acute pancreatitis complication: unspecified Pancreatitis type: unspecified pancreatitis type Qualified Code(s): K85.90 - Acute pancreatitis without necrosis or infection, unspecified
[2022-08-29] MEDS ORDERED: HEPARIN SOD 5,000 UNIT/0.5 ML VIAL SQ STA (22:39)
[2022-08-29 23:36] LABS: Albumin Globulin Ratio 1.2 (0.9-2); BUN Creatinine Ratio 23.3 (10-20); Bilirubin,Total 2.1 mg/dl (0.2-1.0); Creatinine Clr Calc Pharmacy 56.9 ml/min; Est GFR (Non-African American) 59.6 ml/min; Globulin 2.5 gm/dl (2.5-4.0); Potassium 3.9 mmol/L (3.5-5.1); Total Protein 5.5 gm/dl (6.0-8.3)
[2022-08-30] MEDS: metroNIDAZOLE 500 MG/100 ML BAG IV SCH ×3 (00:30→17:39)
[2022-08-30] MEDS: LACTATED RINGER'S 1,000 ML IV SCH ×2 (04:37→19:51)
[2022-08-30 07:23] LABS: Hematocrit (blood only) 42.1 % (42.0-52.0); Hemoglobin 14.5 g/dl (14.0-18.0); Mean Corpuscular Hemoglobin 32.7 pg (25.0-34.0); Mean Corpuscular Hgb Conc 34.4 g/dL (32.0-36.0); Mean Platelet Volume 10.9 fL (9.4-12.4); Platelet Count 159 K/uL (130-400); RDW Standard Deviation 45.9 fL (36.4-46.3); Red Blood Count 4.43 M/uL (4.70-6.10); White Blood Count 26.86 K/ul (4.8-10.8)
[2022-08-30 07:43] LABS: Albumin Globulin Ratio 1.2 (0.9-2); Albumin Level 3.1 gm/dl (3.4-5.0); BUN Creatinine Ratio 21.8 (10-20); Bilirubin,Total 1.9 mg/dl (0.2-1.0); C Reactive Protein 26.78 mg/dl (0-0.5); Calcium 8.6 mg/dl (8.6-10.3); Creatinine Clr Calc Pharmacy 55.6 ml/min; Est GFR (African American) 66.9 ml/min; Est GFR (Non-African American) 57.8 ml/min; Globulin 2.5 gm/dl (2.5-4.0); Potassium 4.4 mmol/L (3.5-5.1); Total Protein 5.6 gm/dl (6.0-8.3)
[2022-08-30 07:47] LABS: Basophils # (auto) 0.05 K/uL (0-0.2); Basophils % (auto) 0.2 %; Immature Granulocytes # (auto) 0.44 K/uL (0.01-0.20); Immature Granulocytes % (auto) 1.6 %; Lymphocytes # (auto) 1.19 K/uL (1.2-3.4); Lymphocytes % (auto) 4.4 %; Monocytes # (auto) 1.95 K/uL (0.11-0.59); Monocytes % (auto) 7.3 %; Neutrophils # (auto) 23.23 K/uL (1.40-6.50); Neutrophils % (auto) 86.5 %
[2022-08-30] MEDS: CEFEPIME 2,000 MG in SYRINGE 0 ML IV SCH ×2 (08:32→20:57)
[2022-08-30] MEDS: MUPIROCIN 2% OINT 22 GM TUBE TOP SCH ×3 (08:32→20:59)
[2022-08-30] MEDS: PANTOprazole 40 MG in SYRINGE 0 ML IV SCH ×2 (08:50→20:57)
--- NOTE | 2022-08-30 08:54 | Gastroenterology Progress Note ---
Date of Service August 30, 2022 Assessment & Plan (1) Acute pancreatitis: Plan: 77 year old male admitted w/ abdominal pain, nausea/vomiting and one episode of dark emesis w/ elevated lipase and imaging concerning for acute pancreatitis w/ possible necrosis. MRCP questions CBD filling defect. NPO for EUS +/- ERCP today, for consent LR 150-200 mL/hr Ensure adequate hydration, watch for a 2 pt drop in HGB Antiemetics PRN Analgesia PRN Trend [employer], glucose Frequent abdominal imaging IV PPI BID x 48 hours then may have PO PPI 40 mg once daily We appreciate assistance in the management of any serological abnormality and corrections to include: hemoglobin >7, INR <2, platelets >50,000, potassium levels >3.5 but <5.3, and sodium levels within 5 points of the reference range prior to endoscopic evaluation. Thank you for allowing us to participate in the care of this patient. Please call with any acute changes, questions or concerns. Please see addendum below with additional recommendation from my supervising physician. Admission and Anticipated Discharge Date Admission Date: August 28, 2022 Supervising Physician Co-Signing Physician Notes I personally saw and evaluated the patient on 08/30/2022 with DIETER Jordan and agree with her findings and plan of care. 77 y/o M admitted with abdominal pain found to have lipase of [address] findings of acute pancreatitis and concern for developing necrotizing pancreatitis. LFTs all normal other than a mild elevation of t bili of 2.4 (bas carlita around 1.6). WBC is 33k today. No biliary dilation seen on CT imaging however MRCP with concern for ? small CBD stone but not biliary dilation seen. he denies any alcohol abuse only 1-2 beers weekly. no prior history of pancreatitis. On physical exam patient remains confused. His abdomen is soft, non-distended, but tender to deep palpation in the epigastric, RUQ, and LUQ. No LE edema. Will plan for EUS +/- ERCP today given concern for choledocholithiasis. Continue IV abx. Surgery is following for necrotizing pancreatitis as well. No plans for surgical intervention at this time. Continue IV LR at 250/hr for acute pancreatitis. Work up per primary team regarding his acute encephalopathy. CT and MRI brain reviewed without any acute findings so this all may be metabolic encephalopathy. Kemi Beaver [place]ams, DO Gastroenterology and Hepatology Subjective Confused overnight. 1-1 sitter. Denies abd pain this AM. No nausea/vomiting. Sp iked temp yesterday evening. No recurrence overnight. WBC trending down on ABX. Tbili 1.9 MRCP questions a filling defect. WBC 22 --> 33 --> 26 [employer] 1.27 --> 1.19 TBili 2.4 --> 1.9 AST 29 --> 76 --> 38 ALT 35 --> 125 --> 68 ALKP 55 --> 80 --> 69 Lipase 1057 --> 86 Trop 51 --> 97 MRCP 2022: There is evidence of acute pancreatitis. The gallbladder is mildly distended but otherwise normal in appearance. No definite gallstones are seen. There is no intra or extrahepatic biliary ductal dilatation. Question artifact versus a small meniscus in the distal common bile duct just above the ampulla. A small distal common duct stone is not excluded. A 2.0 cm simple cystic lesion in the pancreatic head is typical for a side-branch IPMN versus a mucinous cystic neoplasm. Nonemergent GI follow up is recommended. CTAP 2022:Unremarkable spleen and adrenal glands. Partial distention of the gallbladder with mild circumferential wall thickening. No biliary ductal dilatio n. Patency of the hepatic and portal veins. Interstitial and peripancreatic edema with small volume of ascites in the lesser sac with extension into the upper abdomen and dependent pelvis. There is decreased enhancement throughout the neck and body of the pancreas. No pancreatic ductal dilation or acute peripancreatic fluid collection. 1.5 cm hypodensity within the uncinate process of the pancreas may represent a sidebranch IPMN.No bowel obstruction or pneumoperitoneum.. Acute pancreatitis with decreased enhancement involving the pancreatic body suspicious for developing parenchymal necrosis (necrotizing pancreatitis).No acute peripancreatic fluid collections or focal peripancreatic necrosis.. Mild wall thickening of the duodenum and gallbladder, likely reactive. 3 mm right renal calculus. Small hiatal hernia with mild distal esophageal wall thickening. Review of Systems Review of Systems: All systems reviewed & are unremarkable except as noted in HPI & below Physical Exam Constitutional: WD/WN, vitals as above Respiratory: normal respiratory effort; no respiratory distress Cardiovascular: Rate/Rhythm: regular rate Gastrointestinal (Abdomen): normal bowel sounds, soft, nontender, no hepatosplenomegaly Skin: no rashes, warm and dry Results & Data Vital Signs (Past 12 Hours) Vital Signs Temp Pulse Pulse Pulse Resp BP Pulse Ox 08/30/22 07:51 36.7 C 74 17 142/80 H 92 08/30/22 07:46 73 08/30/22 03:15 37.1 C 86 19 156/75 H 90 08/29/22 22:01 88 08/29/22 22:47 37.3 C 88 20 148/75 H 90 O2 Del Method 08/30/22 07:51 Room Air 08/30/22 07:46 08/30/22 03:15 Room Air 08/29/22 22:01 08/29/22 22:47 Room Air Laboratory Results 08/30/22 08/30/22 08/30/22 Range/Units 06:54 06:54 06:54 WBC 26.86 H (4.8-10.8) K/ul RBC 4.43 L (4.70-6.10) M/uL Hgb 14.5 (14.0-18.0) g/dl Hct 42.1 (42.0-52.0) % MCV 95.0 (80.0-100.0) fL MCH 32.7 (25.0-34.0) pg MCHC 34.4 (32.0-36.0) g/dL RDW Std Deviation 45.9 (36.4-46.3) fL RDW Coeff of Zane 13.0 (11.5-14.5) % Plt Count 159 (130-400) K/uL MPV 10.9 (9.4-12.4) fL Immature Gran % (Auto) 1.6 % Neut % (Auto) 86.5 % Lymph % (Auto) 4.4 % [place] % (Auto) 7.3 % Eos % (Auto) 0.0 % Baso % (Auto) 0.2 % Neut # (Auto) 23.23 H (1.40-6.50) K/uL Lymph # (Auto) 1.19 L (1.2-3.4) K/uL [place] # (Auto) 1.95 H (0.11-0.59) K/uL Eos # (Auto) 0.00 (0-0.50) K/uL Baso # (Auto) 0.05 (0-0.2) K/uL Immature Gran # (Auto) 0.44 H (0.01-0.20) K/uL Sodium 142 (136-145) mmol/L Potassium 4.4 (3.5-5.1) mmol/L Chloride 109 H (98-107) mmol/L Carbon Dioxide 27 (21-32) mmol/L Anion Gap 6 (3-11) BUN 26 H (6-23) mg/dl Creatinine 1.19 (0.6-1.4) mg/dl Est Cr Clr Drug Dosing 55.6 ml/min Est GFR ( Amer) 66.9 ml/min Est GFR (Non-Af Amer) 57.8 ml/min BUN/Creatinine Ratio 21.8 H (10-20) Glucose 113 H (70-99(Fasting)) mg/dl POC Glucose (70-99) mg/dl Calcium 8.6 (8.6-10.3) mg/dl Total Bilirubin 1.9 H (0.2-1.0) mg/dl AST 38 (13-39) U/L ALT 68 H (7-52) U/L Alkaline Phosphatase 69 (34-104) U/L C-Reactive Protein 26.78 H (0-0.5) mg/dl Total Protein 5.6 L (6.0-8.3) gm/dl Albumin 3.1 L (3.4-5.0) gm/dl Globulin 2.5 (2.5-4.0) gm/dl Albumin/Globulin Ratio 1.2 (0.9-2) Lipase 86 H (11-82) U/L Procalcitonin 0.68 H (0-0.5) ng/ml 08/29/22 08/29/22 08/29/22 Range/Units 23:02 11:27 06:04 WBC (4.8-10.8) K/ul RBC (4.70-6.10) M/uL Hgb (14.0-18.0) g/dl Hct (42.0-52.0) % MCV (80.0-100.0) fL MCH (25.0-34.0) pg MCHC (32.0-36.0) g/dL RDW Std Deviation (36.4-46.3) fL RDW Coeff of Zane (11.5-14.5) % Plt Count (130-400) K/uL MPV (9.4-12.4) fL Immature Gran % (Auto) % Neut % (Auto) % Lymph % (Auto) % [place] % (Auto) % Eos % (Auto) % Baso % (Auto) % Neut # (Auto) (1.40-6.50) K/uL Lymph # (Auto) (1.2-3.4) K/uL [place] # (Auto) (0.11-0.59) K/uL Eos # (Auto) (0-0.50) K/uL Baso # (Auto) (0-0.2) K/uL Immature Gran # (Auto) (0.01-0.20) K/uL Sodium 140 (136-145) mmol/L Potassium 3.9 (3.5-5.1) mmol/L Chloride 108 H (98-107) mmol/L Carbon Dioxide 27 (21-32) mmol/L Anion Gap 5 (3-11) BUN 27 H (6-23) mg/dl Creatinine 1.16 (0.6-1.4) mg/dl Est Cr Clr Drug Dosing 56.9 ml/min Est GFR ( Amer) 69.0 ml/min Est GFR (Non-Af Amer) 59.6 ml/min BUN/Creatinine Ratio 23.3 H (10-20) Glucose 123 H (70-99(Fasting)) mg/dl POC Glucose 132 H (70-99) mg/dl Calcium 8.0 L (8.6-10.3) mg/dl Total Bilirubin 2.1 H (0.2-1.0) mg/dl AST 43 H (13-39) U/L ALT 77 H (7-52) U/L Alkaline Phosphatase 68 (34-104) U/L C-Reactive Protein (0-0.5) mg/dl Total Protein 5.5 L (6.0-8.3) gm/dl Albumin 3.0 L (3.4-5.0) gm/dl Globulin 2.5 (2.5-4.0) gm/dl Albumin/Globulin Ratio 1.2 (0.9-2) Lipase 123 H 304 H (11-82) U/L Procalcitonin (0-0.5) ng/ml (1) Acute pancreatitis Acute pancreatitis complication: unspecified Pancreatitis type: unspecified pancreatitis type Qualified Code(s): K85.90 - Acute pancreatitis without necrosis or infection, unspecified
[2022-08-30] MEDS: HEPARIN SOD 5,000 UNIT/0.5 ML VIAL SQ SCH ×2 (09:09→17:38)
--- NOTE | 2022-08-30 09:36 | Anesthesiology Consultation ---
Date of Service August 30, 2022 Assessment & Plan (1) Encounter for pre-operative examination: Chart Review Chart Review: Acceptable Risk for Surgery and Patient NOT seen in Pre Admission Testing Consults Requested none History Surgery Operation Date: 08/30/22 08:20 Proposed Procedures p Endoscopic Retrograde Cholangiopancreato - Keyona Genao DO Operation Date: 08/30/22 13:30 Proposed Procedures p Endoscopic Ultrasonography Upper - Keyona Genao DO s Endoscopic Retrograde Cholangiopancreatogram - Keyona Genao DO Height/Weight Height: 5 ft 8 in Weight: 92.5 kg Allergies Allergy/AdvReac Type Severity Reaction Status Date / Time piperacillin [From Zosyn] Allergy Hives Unverified 08/28/22 11:30 Sulfa (Sulfonamide Allergy Hives Verified 08/09/22 10:50 Antibiotics) tazobactam [From Zosyn] Allergy Hives Unverified 08/28/22 11:30 Medications Home Medications Medication Instructions Recorded Confirmed Last Taken aspirin 81 mg tablet,delayed 81 mg PO DAILY 12/31/17 08/28/22 08/27/22 release (Adult Low Dose Aspirin) uncojlkz-rnd-iiksa acid 300 1 tab PO DAILY 12/31/17 08/28/22 08/27/22 mcg-lycopene 600 mcg-lutein 300 mcg tablet (Centrum Silver Men) lisinopril 5 mg tablet 5 mg PO QAM #90 tabs 11/16/21 08/28/22 08/27/22 mupirocin 2 % topical ointment 1 applic topical TID 02/07/22 08/28/22 Unknown triamcinolone acetonide 0.1 % 1 applic topical DAILY PRN rash 06/12/22 08/28/22 Unknown topical cream #80 grams cholecalciferol (vitamin D3) 50 2,000 unit PO DAILY 08/09/22 08/28/22 08/27/22 mcg (2,000 unit) tablet (Vitamin D3) melatonin 5 mg tablet 10 mg PO HS 08/28/22 08/28/22 08/26/22 Active Medications Generic Name Dose Route Start Last Admin Trade Name Freq PRN Reason Stop Dose Admin Heparin Sodium (Porcine) 5,000 units 08/30/22 08:00 08/30/22 09:09 Heparin Sod 5,000 Unit/0.5 Ml Vial SQ 09/29/22 07:59 Not Given Q8H DIONNE Metronidazole 500 mg in 100 mls @ 100 mls/hr 08/29/22 09:00 08/30/22 10:31 Flagyl IV 09/08/22 08:59 Infused Q8H DIONNE Infusion Cefepime HCl 2,000 mg/ Syringe 20 mls @ 5 mls/min 08/29/22 09:00 08/30/22 08:32 IV 09/08/22 08:59 5 mls/min Q12H DIONNE Administration Pantoprazole Sodium 40 mg/ 10 mls @ 5 mls/min 08/29/22 10:30 08/30/22 08:50 Syringe IV 09/28/22 10:29 5 mls/min BID DIONNE Administration Lactated Ringer's 1,000 mls @ 100 mls/hr 08/29/22 20:15 08/30/22 04:37 Lr IV 08/30/22 14:54 100 mls/hr .Q10H DIONNE Administration Melatonin 3 mg 08/28/22 22:00 08/29/22 21:43 Melatonin 3 Mg Tab PO 09/27/22 21:59 3 mg HSZ DIONNE Administration Mupirocin 1 appln 08/28/22 21:00 08/30/22 08:32 Mupirocin 2% Oint 22 Gm Tube TOP 09/27/22 20:59 1 appln TID DIONNE Administration Past Medical History Medical History (Updated 08/30/22 @ 09:41 by Mariano Justin MD) Acute metabolic encephalopathy Acute pancreatitis Cataracts, bilateral Elevated troponin I level Encounter for pre-operative examination Heart murmur Hyperlipidemia Impaired glucose regulation Vitamin D deficiency Past Family History Family History Sister Ovarian cancer Hypertension Obesity Mother Diabetes Father Stroke syndrome Other No significant family history Denies family history of Colon cancer Prostate cancer Myocardial infarction Breast cancer Colorectal cancer Past Surgical History Surgical History H/O bilateral cataract extraction History of appendectomy History of tonsillectomy Social History Smoking Status: Former smoker tobacco type: cigarettes Do You Dip or Chew Tobacco: No Smoking End Date: 1966 Hx Alcohol Use: Yes Alcohol type: beer alcohol intake frequency: a few times a month Hx Substance Use: No Physical Exam Vital Signs Last Vital Signs Temp 36.8 C 08/30/22 12:38 Pulse 82 08/30/22 12:38 Resp 20 08/30/22 12:38 BP 130/81 08/30/22 12:38 Pulse Ox 93 08/30/22 12:38 O2 Del Method Room Air 08/30/22 12:38 Testing Laboratory Results 08/30/22 06:54 08/30/22 06:54 Urine Color Dark Yellow 08/28/22 16:10 Urine Appearance Cloudy (Clear) A 08/28/22 16:10 Urine pH 5.0 (4.5-7.5) 08/28/22 16:10 Ur Specific [place] > 1.045 (1.000-1.030) H 08/28/22 16:10 Urine Protein 1+ (Negative) H 08/28/22 16:10 Urine Glucose (UA) Negative (Negative) 08/28/22 16:10 Urine Ketones Trace (Negative) H 08/28/22 16:10 Urine Nitrite Negative (Negative) 08/28/22 16:10 Ur Leukocyte Esterase Negative (Negative) 08/28/22 16:10 Urine WBC (Auto) 1-5 /hpf (0-5) 08/28/22 16:10 Urine RBC (Auto) 5-10 /hpf (0-4) H 08/28/22 16:10 U Hyaline Cast (Auto) 1-5 /lpf (0-5) 08/28/22 16:10 U Epithel Cells (Auto) >30 /lpf (0-5) H 08/28/22 16:10 Urine Bacteria (Auto) Negative (Negative) 08/28/22 16:10 08/28/22 14:10 Aerobic Blood Culture - Preliminary Blood No growth in Aerobic bottle after 24 hours. Anaerobic Blood Culture - Final 08/28/22 14:10 Aerobic Blood Culture - Preliminary Blood No growth in Aerobic bottle after 24 hours. Anaerobic Blood Culture - Final Electrocardiogram Date: 08/28/22 DICTATED BY:Joe Cantor MD Test Reason : Blood Pressure : / mmHG Vent. Rate : 080 BPM Atrial Rate : 080 BPM P-R Int : 152 ms QRS Dur : 088 ms QT Int : 382 ms P-R-T Axes : - 065 degrees QTc Int : 440 ms Normal sinus rhythm Nonspecific ST abnormality Abnormal ECG When compared with ECG of 31-DEC-2017 04:59, No significant change was found Confirmed by Joe Cantor ([id number]) on 08/28/2022 5:03:43 PM Chest X-Ray Date: 08/28/22 XR chest 1V portable HISTORY: 77 years-old Male vomiting acute nausea with vomiting COMPARISON: Chest radiograph 12/31/2017 TECHNIQUE: AP view of the chest FINDINGS: Cardiac silhouette is enlarged. Atherosclerosis of the aorta. Spondylotic spurring of the spine. No pneumothorax, pleural effusion, airspace consolidation or pulmonary edema. IMPRESSION: No acute process.
--- NOTE | 2022-08-30 11:22 | Surgery Progress Note ---
Date of Service August 30, 2022 Assessment & Plan (1) Acute pancreatitis: Plan: 77 year-old male presented to ED with 1 day history of nausea, vomiting x 7 and upper abdominal pain with elevated leukocytosis of 22k, t. bili of 2.4, and lipase of [address] scan of abd/pelvis showing acute pancreatitis with decreased enhancement of pancreatic body suspicious for developing necrotizing pancreatitis. No peripancreatic fluid collections or focal peripancreatic nec rosis. 08/29/2022: afebrile leukocytosis increased to 33K (22K yesterday) t. bili 2.4, LFTS now elevated RUQ pain on examination 08/30/2022: tmax of 37.9 evening of 08/29/22 leukocytosis improved to 26K from 33K t. bili down to 1.9, LFTS improvin MRCP with questionable distal CBD filling defect, EUS +/- ERCP today Plan: Keep NPo for procedure today Continue IV antibiotics Antiemetics as needed pain management as needed IV fluid hydration No surgical intervention required at this time, will require close monitoring Continue medical management PT/OT repeat am labs Dr. Hyman has seen and examined pt, agrees with above Admission and Anticipated Discharge Date Admission Date: August 28, 2022 Subjective still confused, but seems better today, able to hold more conversation and answer questions. at bedside, seems improved today but still confused and having hallucination at time required 1:1 last evening no abdominal pain at rest, pain with movement no n,v Per EUS +/- ERCP with GI today scheduled for 1 pm Physical Exam Constitutional: cooperative, comfortable and + overweight; no acute distress, not ill appearing, not in distress and not lethargic Respiratory: normal respiratory effort; no respiratory distress, no labored breathing and no retractions Gastrointestinal (Abdomen): Inspection/Auscultation: abdomen normal to inspection and normal bowel sounds; abdomen not distended Percussion/Palpation: + abdomen tender (LUQ) and abdomen soft; no guarding, abdomen not rigid and abdomen not firm Skin: no rashes, warm and dry no jaundice Psychiatric: Orientation: alert and cooperative; + not oriented x 3 Eye Contact: good eye contact Hallucinations: + visual hallucinations Results & Data Vital Signs (Past 12 Hours) Vital Signs Temp Pulse Pulse Pulse Resp BP Pulse Ox 08/30/22 07:51 36.7 C 74 17 142/80 H 92 05/17/23 07:46 73 08/30/22 03:15 37.1 C 86 19 156/75 H 90 O2 Del Method 08/30/22 07:51 Room Air 08/30/22 07:46 08/30/22 03:15 Room Air Laboratory Results 08/30/22 08/30/22 08/30/22 Range/Units 06:54 06:54 06:54 WBC 26.86 H (4.8-10.8) K/ul RBC 4.43 L (4.70-6.10) M/uL Hgb 14.5 (14.0-18.0) g/dl Hct 42.1 (42.0-52.0) % MCV 95.0 (80.0-100.0) fL MCH 32.7 (25.0-34.0) pg MCHC 34.4 (32.0-36.0) g/dL RDW Std Deviation 45.9 (36.4-46.3) fL RDW Coeff of Zane 13.0 (11.5-14.5) % Plt Count 159 (130-400) K/uL MPV 10.9 (9.4-12.4) fL Immature Gran % (Auto) 1.6 % Neut % (Auto) 86.5 % Lymph % (Auto) 4.4 % [place] % (Auto) 7.3 % Eos % (Auto) 0.0 % Baso % (Auto) 0.2 % Neut # (Auto) 23.23 H (1.40-6.50) K/uL Lymph # (Auto) 1.19 L (1.2-3.4) K/uL [place] # (Auto) 1.95 H (0.11-0.59) K/uL Eos # (Auto) 0.00 (0-0.50) K/uL Baso # (Auto) 0.05 (0-0.2) K/uL Immature Gran # (Auto) 0.44 H (0.01-0.20) K/uL Sodium 142 (136-145) mmol/L Potassium 4.4 (3.5-5.1) mmol/L Chloride 109 H (98-107) mmol/L Carbon Dioxide 27 (21-32) mmol/L Anion Gap 6 (3-11) BUN 26 H (6-23) mg/dl Creatinine 1.19 (0.6-1.4) mg/dl Est Cr Clr Drug Dosing 55.6 ml/min Est GFR ( Amer) 66.9 ml/min Est GFR (Non-Af Amer) 57.8 ml/min BUN/Creatinine Ratio 21.8 H (10-20) Glucose 113 H (70-99(Fasting)) mg/dl POC Glucose (70-99) mg/dl Calcium 8.6 (8.6-10.3) mg/dl Total Bilirubin 1.9 H (0.2-1.0) mg/dl AST 38 (13-39) U/L ALT 68 H (7-52) U/L Alkaline Phosphatase 69 (34-104) U/L C-Reactive Protein 26.78 H (0-0.5) mg/dl Total Protein 5.6 L (6.0-8.3) gm/dl Albumin 3.1 L (3.4-5.0) gm/dl Globulin 2.5 (2.5-4.0) gm/dl Albumin/Globulin Ratio 1.2 (0.9-2) Lipase 86 H (11-82) U/L Procalcitonin 0.68 H (0-0.5) ng/ml 08/29/22 08/29/22 Range/Units 23:02 11:27 WBC (4.8-10.8) K/ul RBC (4.70-6.10) M/uL Hgb (14.0-18.0) g/dl Hct (42.0-52.0) % MCV (80.0-100.0) fL MCH (25.0-34.0) pg MCHC (32.0-36.0) g/dL RDW Std Deviation (36.4-46.3) fL RDW Coeff of Zane (11.5-14.5) % Plt Count (130-400) K/uL MPV (9.4-12.4) fL Immature Gran % (Auto) % Neut % (Auto) % Lymph % (Auto) % [place] % (Auto) % Eos % (Auto) % Baso % (Auto) % Neut # (Auto) (1.40-6.50) K/uL Lymph # (Auto) (1.2-3.4) K/uL [place] # (Auto) (0.11-0.59) K/uL Eos # (Auto) (0-0.50) K/uL Baso # (Auto) (0-0.2) K/uL Immature Gran # (Auto) (0.01-0.20) K/uL Sodium 140 (136-145) mmol/L Potassium 3.9 (3.5-5.1) mmol/L Chloride 108 H (98-107) mmol/L Carbon Dioxide 27 (21-32) mmol/L Anion Gap 5 (3-11) BUN 27 H (6-23) mg/dl Creatinine 1.16 (0.6-1.4) mg/dl Est Cr Clr Drug Dosing 56.9 ml/min Est GFR ( Amer) 69.0 ml/min Est GFR (Non-Af Amer) 59.6 ml/min BUN/Creatinine Ratio 23.3 H (10-20) Glucose 123 H (70-99(Fasting)) mg/dl POC Glucose 132 H (70-99) mg/dl Calcium 8.0 L (8.6-10.3) mg/dl Total Bilirubin 2.1 H (0.2-1.0) mg/dl AST 43 H (13-39) U/L ALT 77 H (7-52) U/L Alkaline Phosphatase 68 (34-104) U/L C-Reactive Protein (0-0.5) mg/dl Total Protein 5.5 L (6.0-8.3) gm/dl Albumin 3.0 L (3.4-5.0) gm/dl Globulin 2.5 (2.5-4.0) gm/dl Albumin/Globulin Ratio 1.2 (0.9-2) Lipase 123 H (11-82) U/L Procalcitonin (0-0.5) ng/ml Diagnostic Findings MRCP CLINICAL HISTORY: Acute pancreatitis. Generalized abdominal pain. Nausea and vomiting. COMPARISON STUDY: Abdominal CT dated 08/28/2022. TECHNIQUE: Abdominal MRCP is performed utilizing various T2-weighted sequences in the axial and coronal planes. 3-D reformats are created and assessed. IV contrast was not administered for this examination. The examination is compromised by motion artifact. FINDINGS: The gallbladder is distended but otherwise normal in appearance. No definite gallstones are seen. There is no gallbladder wall thickening. There is no intra or extrahepatic biliary ductal dilatation. The common bile duct measures up to 3 mm. Question a meniscus just above the ampulla on coronal image #83. A small distal common bile duct stone is not excluded. This could also be artifactual. The pancreatic duct is normal in caliber. The pancreas is edematous with peripancreatic inflammation and fluid. The appearance is consistent with acute pancreatitis. There is a 2.0 cm ovoid cystic lesion in the pancreatic head. Additional punctate cystic foci are suggested more distally within the pancreas. There is a small volume of upper abdominal ascites. The unenhanced liver, spleen, adrenal glands, and kidneys are grossly unremarkable. There is no evidence of bowel obstruction. The heart is enlarged. A small hiatal hernia is noted. There are small left and trace right pleural eff usions with dependent consolidation. The abdominal aorta is normal in course and caliber. IMPRESSION: 1. There is evidence of acute pancreatitis. 2. The gallbladder is mildly distended but otherwise normal in appearance. No definite gallstones are seen. 3. There is no intra or extrahepatic biliary ductal dilatation. 4. Question artifact versus a small meniscus in the distal common bile duct just above the ampulla. A small distal common duct stone is not excluded. 5. A 2.0 cm simple cystic lesion in the pancreatic head is typical for a side- branch IPMN versus a mucinous cystic neoplasm. Nonemergent GI follow up is recommended. 6. Ascites and pleural effusions. Pleural effusions are new from yesterday. 7. Additional findings as above.
[2022-08-30] MEDS ORDERED: ONDANSETRON INJ 2 MG/ML 2 ML VIAL IV PRN (12:45)
[2022-08-30] MEDS ORDERED: ePHEDrine sulfate 50 MG/ML AMP IV PRN (12:45)
[2022-08-30] MEDS ORDERED: ATROPINE SULFATE 0.1 MG/ML 10ML SYR IV PRN (12:45)
[2022-08-30] MEDS ORDERED: fentaNYL citrate PF 100 MCG/2 ML VIAL IV PRN (12:45)
--- NOTE | 2022-08-30 13:16 | History & Physical Bridge Note ---
Date of Service August 30, 2022 History & Physical Bridge Note I have examined the patient, reviewed the History & Physical and in the interval since the performance of the History & Physical I have noted the following changes of clinical significance: no changes noted. The patient presented with gallstone pancreatitis and has an MRCP suggestive of a stone in the common bile duct. Given the discrepancy in imaging and improvement of labs we will proceed with upper endoscopy and endoscopic ultrasound, if a stone is seen within the distal common bile duct then ERCP will be provided in the same setting. I discussed the risks of the procedure with the patient and his family to include bleeding infection perforation pain pancreatitis failed biliary cannulation and need for follow-up studies.
[2022-08-30] MEDS ORDERED: MIDAZOLAM HCL 1 MG/ML 2ML VIAL ONE (13:22)
[2022-08-30] MEDS ORDERED: fentaNYL citrate PF 100 MCG/2 ML VIAL ONE (13:22)
[2022-08-30] MEDS ORDERED: INDOMETHACIN 50 MG SUPP PR ONE (13:51)
[2022-08-30] MEDS ORDERED: LARYING-O-JET KIT (LTA) ONE (13:53)
[2022-08-30] MEDS ORDERED: PROPOFOL IV EMULSION 10 MG/ML 20 ML VIAL IV ONE (13:53)
[2022-08-30] MEDS ORDERED: SUCCINYLCHOLINE 100MG/5ML SYR IV ONE (13:53)
[2022-08-30] MEDS ORDERED: ALBUTEROL HFA 8 GM INHALER INH ONE (13:53)
[2022-08-30] MEDS ORDERED: LIDOCAINE 2% 2 ML VIAL/AMP(20MG/ML) INFIL ONE (13:53)
[2022-08-30] MEDS ORDERED: PHENYLEPHRINE HCL 10 MG/ML VIAL ONE (13:56)
--- NOTE | 2022-08-30 13:56 | GI REPORT ---
Patient Name: Jairo Alfred Procedure Date: 08/30/2022 1:29 PM Date of : 1945 Admit Type: Inpatient Age: 77 Gender: Male Attending MD: Keyona Genao DO, Procedure: Upper GI endoscopy Providers: Keyona Genao DO Referring MD: Zeinab Butler Md Indications: Epigastric abdominal pain Medicines: General Anesthesia Complications: No immediate complications. Estimated blood loss: Minimal. Estimated Blood Loss: Estimated blood loss was minimal. Procedure: Pre-Anesthesia Assessment: - Prior to the procedure, a History and Physical was performed, and patient medications, allergies and sensitivities were reviewed. The patient's tolerance of previous anesthesia was reviewed. - The risks and benefits of the procedure and the sedation options and risks were discussed with the patient. All questions were answered and informed consent was obtained. - Patient identification and proposed procedure were verified prior to the procedure by the physician, the nurse and the mother baby rn. The procedure was verified in the pre-procedure area in the procedure room. - Pre-procedure physical examination revealed no contraindications to sedation. - ASA Grade Assessment: III - A patient with severe systemic disease. - After reviewing the risks and benefits, the patient was deemed in satisfactory condition to undergo the procedure. - The anesthesia plan was to use general anesthesia. - Immediately prior to administration of medications, the patient was re-assessed for adequacy to receive sedatives. - The heart rate, respiratory rate, oxygen saturations, blood pressure, adequacy of pulmonary ventilation, and response to care were monitored throughout the procedure. - The physical status of the patient was re-assessed after the procedure. After obtaining informed consent, the endoscope was passed under direct vision. Throughout the procedure, the patient's blood pressure, pulse, and oxygen saturations were monitored continuously. The Endoscope was introduced through the mouth, and advanced to the third part of duodenum. The upper GI endoscopy was accomplished without difficulty. The patient tolerated the procedure well. Findings: The upper third of the esophagus and middle third of the esophagus were normal. LA Grade B (one or more mucosal breaks greater than 5 mm, not extending between the tops of two mucosal folds) esophagitis with no bleeding was found in the lower third of the esophagus. A medium-sized hiatal hernia was found. The proximal extent of the gastric folds (end of tubular esophagus) was 36 cm from the incisors. The hiatal narrowing was 39 cm from the incisors. The gastric fundus, gastric body, incisura and gastric antrum were normal. The examined duodenum was normal. Impression: - Normal upper third of esophagus and middle third of esophagus. - LA Grade B reflux esophagitis with no bleeding. - Medium-sized hiatal hernia. - Normal gastric fundus, gastric body, incisura and antrum. - Normal examined duodenum. - No specimens collected. Recommendation: - Perform an upper endoscopic ultrasound (UEUS) today. - Use Protonix (pantoprazole) 40 mg PO daily for 12 weeks. - Repeat upper endoscopy in 3 months for surveillance. Keyona Genao D.O. Keyona Genao, 08/30/2022 1:55:36 PM This report has been signed electronically. Note Initiated On: 08/30/2022 1:29 PM Number of Addenda: 0 I attest to the content of the Intraoperative Record and orders documented therein, exceptions below {[id number]}
[2022-08-30] MEDS ORDERED: DEXAMETHASONE SOD INJ 4 MG/ML VIAL ONE (14:07)
[2022-08-30] MEDS ORDERED: ONDANSETRON INJ 2 MG/ML 2 ML VIAL ONE (14:07)
--- NOTE | 2022-08-30 14:19 | GI REPORT ---
Patient Name: Jairo Alfred Procedure Date: 08/30/2022 1:27 PM Date of : 1945 Admit Type: Inpatient Age: 77 Gender: Male Attending MD: Keyona Genao DO, Procedure: Upper EUS Providers: Keyona Genao DO Referring MD: Zeinab Butler Md Indications: Elevated liver enzymes, Suspected choledocholithiasis Medicines: General Anesthesia Complications: No immediate complications. Estimated blood loss: Minimal. Estimated Blood Loss: Estimated blood loss was minimal. Procedure: Pre-Anesthesia Assessment: - Prior to the procedure, a History and Physical was performed, and patient medications, allergies and sensitivities were reviewed. The patient's tolerance of previous anesthesia was reviewed. - The risks and benefits of the procedure and the sedation options and risks were discussed with the patient. All questions were answered and informed consent was obtained. - Patient identification and proposed procedure were verified prior to the procedure by the physician, the nurse and the mortgage loan closer. The procedure was verified in the procedure room. - Pre-procedure physical examination revealed no contraindications to sedation. - ASA Grade Assessment: III - A patient with severe systemic disease. - After reviewing the risks and benefits, the patient was deemed in satisfactory condition to undergo the procedure. - The anesthesia plan was to use general anesthesia. - Immediately prior to administration of medications, the patient was re-assessed for adequacy to receive sedatives. - The heart rate, respiratory rate, oxygen saturations, blood pressure, adequacy of pulmonary ventilation, and response to care were monitored throughout the procedure. - The physical status of the patient was re-assessed after the procedure. After obtaining informed consent, the endoscope was passed under direct vision. Throughout the procedure, the patient's blood pressure, pulse, and oxygen saturations were monitored continuously. The Endosonoscope was introduced through the mouth, and advanced to the second part of duodenum. The upper EUS was accomplished without difficulty. The patient tolerated the procedure well. Findings: ENDOSONOGRAPHIC FINDING: : Two stones were visualized endosonographically in the common bile duct. The stones measured up to 4 mm in greatest dimension. They were hyperechoic and notable for shadowing. Multiple stones were visualized endosonographically in the gallbladder. They were hyperechoic and characterized by shadowing. Pancreatic parenchymal abnormalities were noted in the entire pancreas. These consisted of diffuse echogenicity and inflammatory changes consistent with acute pancreatitis. A moderate amount of fluid, visualized as a hypoechoic structure, was found in the peritoneal cavity. A hypoechoic lesion suggestive of a cyst was identified in the pancreatic head. It is not in obvious communication with the pancreatic duct. The lesion measured 25 mm by 14 mm in maximal cross-sectional diameter. There was a single compartment without septae. The outer wall of the lesion was not seen. There was no associated mass. There was no internal debris within the fluid-filled cavity. Impression: - Two stones were visualized endosonographically in the common bile duct. - Multiple stones were visualized endosonographically in the gallbladder. - Pancreatic parenchymal abnormalities consisting of diffuse echogenicity were noted in the entire pancreas. - Ascites was found on endosonographic examination of the peritoneal cavity. - A 25 mm cystic lesion was seen in the pancreatic head, this could represent a pseudocyst or perhaps an IPMN. Recommendation: - Perform an ERCP today. - Repeat EUS in 3 month to re-evaluate the pancreatic cyst Keyona Genao D.O. Keyona Genao, 08/30/2022 2:19:05 PM This report has been signed electronically. Note Initiated On: 08/30/2022 1:27 PM Number of Addenda: 0 I attest to the content of the Intraoperative Record and orders documented therein, exceptions below {[id number]}
--- NOTE | 2022-08-30 14:23 | Post Operative Brief Note ---
Immediate Post Op Note v1 Date of Surgery August 30, 2022 Pre & Post Diagnosis Operation Date: 08/30/22 13:30 Pre-Op Diagnosis: PANCREATITIS Post-Op Diagnosis: Esophaghitis, Hiatal Hernia, CBD stones, Acute Pancreatitis I identified the patient and participated in the time-out.: Yes Procedure Operation Date: 08/30/22 13:30 Actual Procedures p Esophagogastroduodenoscopy - Keyona Genao, p Endoscopic Ultrasonography Upper - Keyona Genao, s Endoscopic Retrograde Cholangiopancreato - Keyona Genao, Surgeon Keyona Genao, Tank Officer none Estimated Blood Loss 0 Findings Consistent with Post-Op Diagnosis
--- NOTE | 2022-08-30 14:23 | GI REPORT ---
Patient Name: Jairo Alfred Procedure Date: 08/30/2022 1:31 PM Date of : 1945 Admit Type: Inpatient Age: 77 Gender: Male Attending MD: Keyona Genao DO, Procedure: ERCP Providers: Keyona Genao DO Referring MD: Zeinab Butler Md Indications: Abdominal pain of suspected biliary origin, Gallstone associated acute pancreatitis Medicines: General Anesthesia Complications: No immediate complications. Estimated blood loss: Minimal. Estimated Blood Loss: Estimated blood loss was minimal. Procedure: Pre-Anesthesia Assessment: - Prior to the procedure, a History and Physical was performed, and patient medications, allergies and sensitivities were reviewed. The patient's tolerance of previous anesthesia was reviewed. - The risks and benefits of the procedure and the sedation options and risks were discussed with the patient. All questions were answered and informed consent was obtained. - Patient identification and proposed procedure were verified prior to the procedure by the physician, the nurse and the rn training. The procedure was verified in the procedure room. - Pre-procedure physical examination revealed no contraindications to sedation. - ASA Grade Assessment: III - A patient with severe systemic disease. - After reviewing the risks and benefits, the patient was deemed in satisfactory condition to undergo the procedure. - The anesthesia plan was to use general anesthesia. - Immediately prior to administration of medications, the patient was re-assessed for adequacy to receive sedatives. - The heart rate, respiratory rate, oxygen saturations, blood pressure, adequacy of pulmonary ventilation, and response to care were monitored throughout the procedure. - The physical status of the patient was re-assessed after the procedure. After obtaining informed consent, the scope was passed under direct vision. Throughout the procedure, the patient's blood pressure, pulse, and oxygen saturations were monitored continuously. The Duodenoscope was introduced through the mouth, and advanced to the duodenum and used to inject contrast into the bile duct. The ERCP was accomplished without difficulty. The patient tolerated the procedure well. Findings: The senior investment manager film was normal. The esophagus was successfully intubated under direct vision without detailed examination of the pharynx, larynx, and associated structures, and upper GI tract. The upper GI tract was grossly normal. The major papilla was congested. The bile duct was deeply cannulated with the short-nosed traction sphincterotome and guidewire. Contrast was injected. I personally interpreted the bile duct images. Contrast extended to the hepatic ducts. The lower third of the main bile duct contained filling defect(s) thought to be a stone. The cystic duct appeared patent with prompt contrast filling a portion of the gallbladder. Biliary sphincterotomy was made with a Fusion OMNI sphincterotome using ERBE electrocautery. There was no post-sphincterotomy bleeding. To discover objects, the biliary tree was swept with an 11 mm balloon starting at the bifurcation. Sludge was swept from the duct. Two stones were removed. No stones remained. One 10 Fr by 8 cm biliary stent with a single external flap and a single internal flap was placed 8 cm into the common bile duct. Bile flowed through the stent. The stent was in good position. The endoscope was withdrawn from the patient. The total fluoroscopy exposure time was 20 seconds. Impression: - The major papilla appeared congested. - A filling defect consistent with a stone was seen on the cholangiogram. - Choledocholithiasis was found. Complete removal was accomplished by biliary sphincterotomy and balloon extraction. - A biliary sphincterotomy was performed. - The biliary tree was swept. - One biliary stent was placed into the common bile duct. Recommendation: - Avoid aspirin and nonsteroidal anti-inflammatory medicines for 5 days. - NPO today. - Use broad spectrum antibiotics for 2 weeks. - Repeat ERCP in 6 - 8 weeks to remove stent. - Refer to a surgeon to determine timing of cholecystectomy. Keyona Genao D.O. Keyona Genao, 08/30/2022 2:23:02 PM This report has been signed electronically. Note Initiated On: 08/30/2022 1:31 PM Number of Addenda: 0 I attest to the content of the Intraoperative Record and orders documented therein, exceptions below {[id number]}
--- NOTE | 2022-08-30 14:26 | Communication Note ---
Date of Service: August 30, 2022 Patient underwent upper endoscopy, endoscopic ultrasound and ERCP today. He was found to have evidence of a 3 cm hiatal hernia, esophagitis of the lower third of the esophagus in addition to cholelithiasis and choledocholithiasis. The patient ultimately underwent ERCP with gallstone extraction, biliary sphincterotomy and biliary stent placement. Recommendations Continue IV hydration Continue antibiotic coverage for a total of 2 weeks Avoid NSAIDs for 1 week of possible Protonix (or equivalent) 40 mg per day for 3 month General surgery consultation to discuss timing of cholecystectomy Repeat ERCP in 6 to 8 weeks for biliary stent removal Repeat endoscopic ultrasound in 3 months for follow-up of the pancreatic cyst Repeat upper endoscopy in 3 months for follow-up of esophagitis
--- NOTE | 2022-08-30 14:46 | Fluoroscopy Report ---
[place] ERCP biliary ductal CLINICAL HISTORY: ERCP COMPARISON STUDY: CT 08/29/2019. FLUOROSCOPY TIME: 20.7 seconds FLUOROSCOPY IMAGES: 3 EXPOSURE DOSE: 8.29 mGy FINDINGS: Endoscope within the duodenum. Cannulation of the common bile duct with retrograde injectio n of contrast. No biliary ductal dilation, filling defects or definite strictures identified. Subsequ ent image demonstrates placement of a common bile duct stent which appears to be in satisfactory posi tioning. IMPRESSION: Fluoroscopic assistance as above. ACT 112: Negative or not required by law. Electronically signed by: Vel Morales M.D. 08/30/2022 2:45 PM
--- NOTE | 2022-08-30 16:14 | Anesthesiology Progress Note ---
Date of Service August 30, 2022 Anesthesia Post Procedure Vital Signs Vital Signs: Temp Pulse Pulse Pulse Resp BP Pulse Ox 08/30/22 16:11 37.0 C 76 20 153/75 H 93 08/30/22 15:31 37.5 C 90 19 164/78 H 94 08/30/22 15:10 37.0 C 82 25 H 160/82 H 96 08/30/22 15:05 75 24 170/84 H 96 08/30/22 14:55 79 26 H 156/83 H 97 08/30/22 14:45 75 21 136/75 96 08/30/22 14:35 74 20 127/76 96 08/30/22 14:26 36.1 C L 76 17 143/82 H 94 08/30/22 12:38 36.8 C 82 20 130/81 93 08/30/22 11:35 36.7 C 78 16 148/73 H 93 08/30/22 07:51 36.7 C 74 17 142/80 H 92 08/30/22 07:46 73 08/30/22 03:15 37.1 C 86 19 156/75 H 90 08/29/22 22:01 88 08/29/22 22:47 37.3 C 88 20 148/75 H 90 08/29/22 19:00 37.9 C H 81 16 139/67 90 O2 Del Method O2 Flow Rate 08/30/22 16:11 Nasal Cannula 08/30/22 15:31 Nasal Cannula 3 08/30/22 15:10 Nasal Cannula 3 08/30/22 15:05 Nasal Cannula 3 08/30/22 14:55 Oxymask 6 08/30/22 14:45 Oxymask 6 08/30/22 14:35 Oxymask 6 08/30/22 14:26 Oxymask 6 08/30/22 12:38 Room Air 08/30/22 11:35 Room Air 08/30/22 07:51 Room Air 08/30/22 07:46 08/30/22 03:15 Room Air 08/29/22 22:01 08/29/22 22:47 Room Air 08/29/22 19:00 Room Air Pain Intensity Chest: Pain Intensity: 0 Transfer of Care Handoff Completed per policy Notes Mental Status: alert / awake / arousable and participated in evaluation Patient Amnestic to Procedure: Yes Nausea / Vomiting: adequately controlled Pain: adequately controlled Airway Patency, RR, SpO2: stable & adequate BP & HR: stable & adequate Hydration State: stable & adequate Anesthetic Complications: no major complications apparent and Pt Satisfied with anesthetic care
--- NOTE | 2022-08-30 19:14 | Hospitalist Progress Note ---
Date of Service August 30, 2022 Assessment & Plan (1) Acute pancreatitis: Plan: Presented with severe, ?necrotizing pancreatitis and 2 cm cyst in pancreatic head With fever, tachycardia,significant leukocytosis, N/V, sepsis, and WILMER on admission Procal elevated Started on Cefepime and Flagyl Tertiary care contacted initially and declined to accept as not necessary LFTs elevated and WBC count improving since starting abx and with copious IVFs Found to have choledocholithiasis on MRCP and ERCP 08/30 with 3 cm hiatal hernia, esophagitis of the lower third of the esophagus in addition to cholelithiasis and choledocholithiasis. The patient ultimately underwent ERCP with gallstone extraction, biliary sphincterotomy and biliary stent placement. -continue IVFs-reordered LR at 125mL/hr -adv to clear liquids today and to low fat after that if tolerating -appreciate GI consult: needs abx x 2 weeks, avoid NSAIDs x 1 week (home ASA being held), Protonix x 3 months, repeat ERCP for stent removal 6-8 weeks, perform EUS in 3 mo for pancreatic cyst and EGD 3 mo for f/u esophagitis -appreciate Surgery consult-plan to delay cholecystectomy until more medically stable, possibly outpt? -continue pain control as needed, antiemetics as needed -watch for ileus as has h/o constipation at baseline -follow CBC, CMP, Mag, Phos (2) Sepsis: Plan: as above, 2/2 pancreatitis BCxs NGTD continue abx and tx of pancreatitis as above (3) Acute metabolic encephalopathy: Plan: Patient is with delirium 2/2 pancreatitis and cholangitis, sepsis MRI and CT head were negative. Seems to be waxing and waning but improved somewhat with hallucinations at times, confusion, restlessness, pulling at IVs etc., requiring 1:1 avoid sleep agents other than melatonin, could give Seroquel prn supportive care, IVFs, encourage sleep/wake cycles check TSH, B1, B12 in AM, consider IV thiamine (4) Cholelithiasis with choledocholithiasis: Plan: as above (5) Esophagitis: Plan: as above continue PPI IV bid then convert to po x 3 mo, repeat EGD in 3 mo (6) WILMER (acute kidney injury): Plan: 2/2 hypovolemia/prerenal from acute pancreatitis and N/V -improved now with IVF, holding lisinopril -follow BMP -maintain Iniguez catheter for now (7) Elevated troponin I level: Plan: trop 57 amd then in 90s no repeat since then--> checked and down to [address]/TW chnges similar to previous likely demand ischemia. (8) Pancreatic cyst: Plan: as above, EUS in 3 mo after pancreatitis settles down (9) HTN (hypertension), benign: Plan: BPs acceptable holding home lisinopril Plan DVT proph-heparin SQ Dispo-continued stay PCU Admission and Anticipated Discharge Date Admission Date: August 28, 2022 Subjective Pt had ERCP today. and daughter at bedside provide a lot of info as pt is still somewhat confused. He is waxing and waning with mentation as per them, slightly worse since returning from anesthesia for ERCP. He denies any abd pain or nausea. Does mention something about giving a talk at the pharmacy. Also asks about something for a sore throat. Wants to know if he can drink. Tele with NSR, 70-80s Physical Exam Constitutional: WD/WN, vitals as above Respiratory: normal respiratory effort, lungs clear to auscultation Cardiovascular: RRR, no murmur, no edema Gastrointestinal (Abdomen): normal bowel sounds, soft, nontender, no hepatosplenomegaly Neurologic: awake and + confused; no focal motor deficits Psychiatric: Orientation: alert, oriented to person, oriented to place and cooperative; + not oriented to time restless Genitourinary: Iniguez in place Results & Data Results & Data Vital Signs (Past 12 Hours) Vital Signs Temp Pulse Pulse Pulse Resp BP Pulse Ox 08/30/22 17:06 84 08/30/22 17:32 36.6 C 75 22 152/74 H 95 08/30/22 16:11 37.0 C 76 20 153/75 H 93 08/30/22 15:31 37.5 C 90 19 164/78 H 94 08/30/22 15:10 37.0 C 82 25 H 160/82 H 96 08/30/22 15:05 75 24 170/84 H 96 08/30/22 14:55 79 26 H 156/83 H 97 08/30/22 14:45 75 21 136/75 96 08/30/22 14:35 74 20 127/76 96 08/30/22 14:26 36.1 C L 76 17 143/82 H 94 08/30/22 12:38 36.8 C 82 20 130/81 93 08/30/22 11:35 36.7 C 78 16 148/73 H 93 08/30/22 07:51 36.7 C 74 17 142/80 H 92 08/30/22 07:46 73 O2 Del Method O2 Flow Rate 08/30/22 17:06 08/30/22 17:32 Nasal Cannula 08/30/22 16:11 Nasal Cannula 08/30/22 15:31 Nasal Cannula 3 08/30/22 15:10 Nasal Cannula 3 08/30/22 15:05 Nasal Cannula 3 08/30/22 14:55 Oxymask 6 08/30/22 14:45 Oxymask 6 08/30/22 14:35 Oxymask 6 08/30/22 14:26 Oxymask 6 08/30/22 12:38 Room Air 08/30/22 11:35 Room Air 08/30/22 07:51 Room Air 08/30/22 07:46 Laboratory Results CBC, CMP, Procal, CRP, lipase reviewed PG Care Time/CCT Total # of Minutes Spent Total Time Spent with Patient: Total time spent is greater than 50% in coordination of care (as documented) at patient's floor/unit and/or counseling patient: Coding Level of Care Code 38183 SUB INP/OBS CARE 350MIN Diagnoses Acute pancreatitis K85.90 Acute pancreatitis complication: unspecified Pancreatitis type: unspecified pancreatitis type Sepsis A41.9 Acute metabolic encephalopathy G93.41 Cholelithiasis with choledocholithiasis K80.70 Esophagitis K20.90 WILMER (acute kidney injury) N17.9 Elevated troponin I level R77.8 Pancreatic cyst K86.2 HTN (hypertension), benign I10 (1) Acute pancreatitis Acute pancreatitis complication: unspecified Pancreatitis type: unspecified pancreatitis type Qualified Code(s): K85.90 - Acute pancreatitis without necrosis or infection, unspecified
[2022-08-30] MEDS: MELATONIN 3 MG TAB PO SCH (21:08)
[2022-08-31] MEDS: LACTATED RINGER'S 1,000 ML IV SCH ×3 (03:53→19:26)
[2022-08-31 06:41] LABS: Basophils # (auto) 0.06 K/uL (0-0.2); Basophils % (auto) 0.3 %; Eosinophils # (auto) 0.06 K/uL (0-0.50); Eosinophils % (auto) 0.3 %; Hematocrit (blood only) 42.2 % (42.0-52.0); Hemoglobin 14.1 g/dl (14.0-18.0); Immature Granulocytes # (auto) 0.24 K/uL (0.01-0.20); Immature Granulocytes % (auto) 1.2 %; Lymphocytes # (auto) 1.33 K/uL (1.2-3.4); Lymphocytes % (auto) 6.4 %; Mean Corpuscular Hgb Conc 33.4 g/dL (32.0-36.0); Mean Corpuscular Volume 95.9 fL (80.0-100.0); Mean Platelet Volume 10.8 fL (9.4-12.4); Monocytes % (auto) 7.7 %; Neutrophils % (auto) 84.1 %; Platelet Count 169 K/uL (130-400); RDW Coefficient of Variation 12.9 % (11.5-14.5); RDW Standard Deviation 45.9 fL (36.4-46.3); White Blood Count 20.69 K/ul (4.8-10.8)
[2022-08-31 07:36] LABS: Albumin Globulin Ratio 1.3 (0.9-2); BUN Creatinine Ratio 23.7 (10-20); Bilirubin,Total 1.3 mg/dl (0.2-1.0); Calcium 8.4 mg/dl (8.6-10.3); Est GFR (African American) 70.5 ml/min; Est GFR (Non-African American) 60.8 ml/min; Globulin 2.4 gm/dl (2.5-4.0); Potassium 4.3 mmol/L (3.5-5.1); Total Protein 5.4 gm/dl (6.0-8.3)
[2022-08-31] MEDS: HEPARIN SOD 5,000 UNIT/0.5 ML VIAL SQ SCH ×3 (08:01→16:41)
[2022-08-31] MEDS: metroNIDAZOLE 500 MG/100 ML BAG IV SCH ×3 (08:02→17:45)
[2022-08-31] MEDS: CEFEPIME 2,000 MG in SYRINGE 0 ML IV SCH ×2 (08:02→20:45)
[2022-08-31] MEDS: PANTOprazole 40 MG in SYRINGE 0 ML IV SCH ×2 (08:02→20:45)
[2022-08-31] MEDS: MUPIROCIN 2% OINT 22 GM TUBE TOP SCH ×3 (08:02→20:50)
[2022-08-31] MEDS: THIAMINE HCL 500 MG in SODIUM CHLORIDE 0.9% 50 ML IV SCH ×2 (09:11→16:46)
[2022-08-31] MEDS ORDERED: risperiDONE ODT 0.5 MG SOLTAB PO ONE (09:22)
--- NOTE | 2022-08-31 09:54 | Gastroenterology Progress Note ---
Date of Service August 31, 2022 Assessment & Plan (1) Acute pancreatitis: Plan: 77 year old male admitted w/ abdominal pain, nausea/vomiting and one episode of dark emesis w/ elevated lipase and imaging concerning for acute pancreatitis w/ possible necrosis. MRCP questions CBD filling defect. S/P EGD/EUS/ERCP w/ evidence of a 3 cm hiatal hernia, esophagitis of the lower third of the esophagus in addition to cholelithiasis and choledocholithiasis w/ gallstone extraction, biliary sphincterotomy and biliary stent placement. Continue IV hydration Ensure adequate hydration, watch for a 2 pt drop in HGB Antiemetics PRN Analgesia PRN Continue antibiotic coverage for a total of 2 weeks Avoid NSAIDs for 1 week of possible Protonix (or equivalent) 40 mg per day for 3 month General surgery consultation to discuss timing of cholecystectomy Repeat ERCP in 6 to 8 weeks for biliary stent removal Repeat endoscopic ultrasound in 3 months for follow-up of the pancreatic cyst Repeat upper endoscopy in 3 months for follow-up of esophagitis Thank you for allowing us to participate in the care of this patient. Please call with any acute changes, questions or concerns. Please see addendum below with additional recommendation from my supervising physician. Admission and Anticipated Discharge Date Admission Date: August 28, 2022 Supervising Physician Co-Signing Physician Notes I personally saw and evaluated the patient on 08/31/2022 with DIETER Jordan and agree with her findings and plan of care. 77 y/o M admitted with abdominal pain found to have lipase of [address] findings of acute pancreatitis and concern for developing necrotizing pancreatitis. LFTs all normal other than a mild elevation of t bili of 2.4 (baseline around 1.6). WBC is 33k today. No biliary dilation seen on CT imaging however MRCP with concern for ? small CBD stone but no biliary dilation seen. he denies any alcohol abuse only 1-2 beers weekly. no prior history of pancreatitis. he underwent EUS/ERCP on 08/30 and was found to have evidence of a 3 cm hiatal hernia, esophagitis of the lower third of the esophagus in addition to cholelithiasis and choledocholithiasis. The patient ultimately underwent ERCP with gallstone extraction, biliary sphincterotomy and biliary stent placement. LFTs normal other than bili of 1.3 which is at his baseline. On physical exam patient remains confused. His abdomen is soft, non-distended, non-tender. No LE edema. at bedside updated. Plan for repeat ERCP in 6-8 weeks to remove biliary stent and repeat EGD/EUS in 3 months for follow up of pancreatic cyst and esophagitis. We will arrange these procedures. Continue antibiotics for a total of 2 weeks. PPI 40 mg daily for the next 3 months given esophagitis seen on endoscopy. Surgery is following for necrotizing pancreatitis as well. No plans for surgical intervention at this time. Planning on outpatient CCY. Advance diet as tolerated. Kemi Mcleod, Gastroenterology and Hepatology Subjective S/P ERCP yesterday Confusion persists Abd pain appears mild on palpation EGD 2022: - Normal upper third of esophagus and middle third of esophagus. - LA Grade B reflux esophagitis with no bleeding. - Medium-sized hiatal hernia. - Normal gastric fundus, gastric body, incisura and antrum. - Normal examined duodenum. - No specimens collected. EUS 2022: - Two stones were visualized endosonographically in the common bile duct. - Multiple stones were visualized endosonographically in the gallbladder. - Pancreatic parenchymal abnormalities consisting of diffuse echogenicity were noted in the entire pancreas. - Ascites was found on endosonographic examination of the peritoneal cavity. - A 25 mm cystic lesion was seen in the pancreatic head, this could represent a pseudocyst or perhaps an IPMN. ERCP 2022: The major papilla appeared congested. - A filling defect consistent with a stone was seen on the cholangiogram. - Choledocholithiasis was found. Complete removal was accomplished by biliary sphincterotomy and balloon extraction. - A biliary sphincterotomy was performed. - The biliary tree was swept. - One biliary stent was placed into the common bile duct. Results & Data Vital Signs (Past 12 Hours) Vital Signs Temp Pulse Pulse Resp BP Pulse Ox O2 Del Method 08/31/22 07:36 77 08/31/22 07:19 36.7 C 66 19 154/72 H 91 Room Air 08/31/22 03:08 36.7 C 83 20 149/74 H 91 Room Air 08/30/22 22:00 73 08/30/22 23:15 37.0 C 83 20 166/94 H 95 Nasal Cannula O2 Flow Rate 08/31/22 07:36 08/31/22 07:19 08/31/22 03:08 08/30/22 22:00 08/30/22 23:15 2 (1) Acute pancreatitis Acute pancreatitis complication: unspecified Pancreatitis type: unspecified pancreatitis type Qualified Code(s): K85.90 - Acute pancreatitis without necrosis or infection, unspecified
--- NOTE | 2022-08-31 10:45 | Hospitalist Progress Note ---
Date of Service August 31, 2022 Assessment & Plan (1) Acute pancreatitis: Plan: Presented with severe, ?necrotizing pancreatitis and 2 cm cyst in pancreatic head With fever, tachycardia,significant leukocytosis, N/V, sepsis, and WILMER on admission Procal elevated Started on Cefepime and Flagyl Tertiary care contacted initially and declined to accept as not necessary LFTs elevated and WBC count improving since starting abx and with copious IVFs Found to have choledocholithiasis on MRCP and ERCP 08/30 with 3 cm hiatal hernia, esophagitis of the lower third of the esophagus in addition to cholelithiasis and choledocholithiasis. The patient ultimately underwent ERCP with gallstone extraction, biliary sphincterotomy and biliary stent placement. LFTs continue to improve, leukocytosis continues to improve Remains with delirium -continue LR at 125mL/hr -Continue clear liquids today and advance to low fat once tolerating -appreciate GI consult: needs abx x 2 weeks, avoid NSAIDs x 1 week (home ASA being held), Protonix x 3 months, repeat ERCP for stent removal 6-8 weeks, perform EUS in 3 mo for pancreatic cyst and EGD 3 mo for f/u esophagitis -appreciate Surgery consult-plan to delay cholecystectomy until more medically stable, as an outpatient in 3 to 4 weeks prior to stent removal -continue pain control as needed, antiemetics as needed -watch for ileus as has h/o constipation at baseline -follow CBC, CMP, Mag, Phos and replace as needed-give IV phosphorus today (2) Sepsis: Plan: as above, 2/2 pancreatitis, improving BCxs NGTD continue abx and tx of pancreatitis as above (3) Acute metabolic encephalopathy: Plan: Patient is with delirium 2/2 pancreatitis and cholangitis, sepsis MRI and CT head were negative. Seems to be waxing and waning but improved somewhat with hallucinations at times, confusion, restlessness, pulling at IVs etc., still requiring 1:1 avoid sleep agents other than melatonin, but will give low-dose risperidone 0.5 Mg p.o. x1 today as he has not slept in over 36 hours supportive care, IVFs, encourage sleep/wake cycles TSH, B12 normal Vitamin B1 level drawn and pending-give empiric high-dose IV thiamine in the meantime (4) Cholelithiasis with choledocholithiasis: Plan: as above (5) Esophagitis: Plan: as above continue PPI IV bid then convert to po x 3 mo, repeat EGD in 3 mo (6) WILMER (acute kidney injury): Plan: 2/2 hypovolemia/prerenal from acute pancreatitis and N/V -improved now with IVF, holding lisinopril -follow BMP -maintain Iniguez catheter for now (7) Elevated troponin I level: Plan: trop 57/90/[address]/TW changes similar to previous likely demand ischemia. Continue to monitor on telemetry (8) Pancreatic cyst: Plan: as above, EUS in 3 mo after pancreatitis settles down (9) HTN (hypertension), benign: Plan: BPs acceptable to mildly elevated holding home lisinopril Plan DVT proph-heparin SQ Dispo-continued stay PCU, PT/OT consults placed and pending, will likely need rehab Admission and Anticipated Discharge Date Admission Date: August 28, 2022 Subjective Patient remains confused but still able to answer questions. Denies pain or nausea. Only had a few sips of water this morning. As per nursing report, he did not sleep at all all night and is constantly pulling at his leads and IVs. Discussed his care with the surgeon at the bedside. Discussed his care with his at the bedside. Telemetry with normal sinus rhythm and PVCs, rates in the 60s-70s. Physical Exam Constitutional: WD/WN, vitals as above Respiratory: normal respiratory effort, lungs clear to auscultation Cardiovascular: RRR, no murmur, no edema Gastrointestinal (Abdomen): normal bowel sounds, soft, nontender, no hepatosplenomegaly Neurologic: awake and + confused; no focal motor deficits Psychiatric: Orientation: alert, oriented to person, oriented to place and cooperative; + not oriented to time Results & Data Results & Data Vital Signs (Past 12 Hours) Vital Signs Temp Pulse Pulse Resp BP Pulse Ox O2 Del Method 08/31/22 07:36 77 08/31/22 07:19 36.7 C 66 19 154/72 H 91 Room Air 08/31/22 03:08 36.7 C 83 20 149/74 H 91 Room Air 08/30/22 23:15 37.0 C 83 20 166/94 H 95 Nasal Cannula O2 Flow Rate 08/31/22 07:36 08/31/22 07:19 08/31/22 03:08 08/30/22 23:15 2 Laboratory Results CBC, CMP, magnesium level, phosphorus level, B12 level, TSH reviewed Blood cultures-no growth to date PG Care Time/CCT Total # of Minutes Spent Total Time Spent with Patient: Total time spent is greater than 50% in coordination of care (as documented) at patient's floor/unit and/or counseling patient: Coding Level of Care Code 97009 SUB INP/OBS CARE 3/50MIN Diagnoses Acute pancreatitis K85.90 Acute pancreatitis complication: unspecified Pancreatitis type: unspecified pancreatitis type Sepsis A41.9 Acute metabolic encephalopathy G93.41 Cholelithiasis with choledocholithiasis K80.70 Esophagitis K20.90 WILMER (acute kidney injury) N17.9 Elevated troponin I level R77.8 Pancreatic cyst K86.2 HTN (hypertension), benign I10 (1) Acute pancreatitis Acute pancreatitis complication: unspecified Pancreatitis type: unspecified pancreatitis type Qualified Code(s): K85.90 - Acute pancreatitis without necrosis or infection, unspecified
[2022-08-31] MEDS ORDERED: SODIUM PHOSPHATE 3 MMOL/1 ML INFUSION IV STA (10:46)
[2022-08-31] MEDS ORDERED: SODIUM PHOSPHATE 9 MMOL in SODIUM CHLORIDE 0.9% 250 ML IV ONE (11:00)
--- NOTE | 2022-08-31 11:00 | Surgery Progress Note ---
Date of Service August 31, 2022 Assessment & Plan (1) Acute pancreatitis: (2) Sepsis: (3) Cholelithiasis with choledocholithiasis: (4) Acute metabolic encephalopathy: Plan 77 year-old male presented to ED with 1 day history of nausea, vomiting x 7 and upper abdominal pain with elevated leukocytosis of 22k, t. bili of 2.4, and lipase of [address] scan of abd/pelvis showing acute pancreatitis with decreased enhancement of pancreatic body suspicious for developing necrotizing pancreatitis. No peripancreatic fluid collections or focal peripancreatic necrosis. POD # 1 s/p EUS + ERCP found to have choledocholithiasis s/p stent placement x 1 afebrile leukocytosis improved to 20K still with confusion, hallucinations, agitation requiring 1:1, waxes and wanes no abdominal pain , examination without abdominal pain t. bili down to 1.3, lfts normalized, lipase down to 80 yesterday Plan: Given patients severe pancreatitis and encephalopathy would recommend delaying cholecystectomy until outpatient in about 3-4 weeks. He does have cholelithiasis and would benefit from cholecystectomy to prevent further biliary obstruction however would like further clinical improvement before putting patient under another general anesthetic and surgical procedure. Likely has sig nificant inflammation from the acute pancreatitis which could make laparoscopic procedure more difficulty and increase risks of surgery. MRCP showing no signs of acute cholecystitis and the gallbladder filled with contrast during ERCP with patent cystic duct. Continue IV antibiotics, total course of abx therapy for 2 weeks per GI recommendations Clear liquids and advance as tolerated to low fat diet continue current medical management Dr. diaz has seen and examined patient, agrees with above. Admission and Anticipated Discharge Date Admission Date: August 28, 2022 Subjective upon entering room , dr. Butler evaluating patient. States he did not sleep well last night had to give risperidone for agitation, requiring 1:1. Still having confusion and hallucinations states he is not having abdominal pain passed some gas did not take much clear liquids so far at bedside Physical Exam Constitutional: well developed, well nourished, + obese and cooperative; no acute distress and not ill appearing Gastrointestinal (Abdomen): Inspection/Auscultation: abdomen normal to inspection; abdomen not distended Percussion/Palpation: abdomen soft; abdomen nontender, no guarding and abdomen not rigid Skin: no rashes, warm and dry no jaundice Psychiatric: Orientation: alert, oriented to place and cooperative (but confused); + not oriented x 3 Results & Data Vital Signs (Past 12 Hours) Vital Signs Temp Pulse Pulse Resp BP Pulse Ox O2 Del Method 08/31/22 07:36 77 08/31/22 07:19 36.7 C 66 19 154/72 H 91 Room Air 08/31/22 03:08 36.7 C 83 20 149/74 H 91 Room Air 08/30/22 23:15 37.0 C 83 20 166/94 H 95 Nasal Cannula O2 Flow Rate 08/31/22 07:36 08/31/22 07:19 08/31/22 03:08 08/30/22 23:15 2 Laboratory Results 08/31/22 08/31/22 08/31/22 Range/Units 06:10 06:10 06:10 WBC (4.8-10.8) K/ul RBC (4.70-6.10) M/uL Hgb (14.0-18.0) g/dl Hct (42.0-52.0) % MCV (80.0-100.0) fL MCH (25.0-34.0) pg MCHC (32.0-36.0) g/dL RDW Std Deviation (36.4-46.3) fL RDW Coeff of Zane (11.5-14.5) % Plt Count (130-400) K/uL MPV (9.4-12.4) fL Immature Gran % (Auto) % Neut % (Auto) % Lymph % (Auto) % [place] % (Auto) % Eos % (Auto) % Baso % (Auto) % Neut # (Auto) (1.40-6.50) K/uL Lymph # (Auto) (1.2-3.4) K/uL [place] # (Auto) (0.11-0.59) K/uL Eos # (Auto) (0-0.50) K/uL Baso # (Auto) (0-0.2) K/uL Immature Gran # (Auto) (0.01-0.20) K/uL Sodium (136-145) mmol/L Potassium (3.5-5.1) mmol/L Chloride (98-107) mmol/L Carbon Dioxide (21-32) mmol/L Anion Gap (3-11) BUN (6-23) mg/dl Creatinine (0.6-1.4) mg/dl Est Cr Clr Drug Dosing ml/min Est GFR ( Amer) ml/min Est GFR (Non-Af Amer) ml/min BUN/Creatinine Ratio (10-20) Glucose (70-99(Fasting)) mg/dl Calcium (8.6-10.3) mg/dl Phosphorus (2.5-4.9) mg/dl Magnesium (1.7-2.4) mg/dl Total Bilirubin (0.2-1.0) mg/dl AST (13-39) U/L ALT (7-52) U/L Alkaline Phosphatase (34-104) U/L Troponin I High Sens (0-20) pg/ml Total Protein (6.0-8.3) gm/dl Albumin (3.4-5.0) gm/dl Globulin (2.5-4.0) gm/dl Albumin/Globulin Ratio (0.9-2) Whole Bld Vitamin B1 Pending Vitamin B12 425 (180-914) pg/ml TSH 0.315 (0.300-4.500) uIu/ml 08/31/22 08/31/22 08/30/22 Range/Units 06:10 06:10 19:30 WBC 20.69 H (4.8-10.8) K/ul RBC 4.40 L (4.70-6.10) M/uL Hgb 14.1 (14.0-18.0) g/dl Hct 42.2 (42.0-52.0) % MCV 95.9 (80.0-100.0) fL MCH 32.0 (25.0-34.0) pg MCHC 33.4 (32.0-36.0) g/dL RDW Std Deviation 45.9 (36.4-46.3) fL RDW Coeff of Zane 12.9 (11.5-14.5) % Plt Count 169 (130-400) K/uL MPV 10.8 (9.4-12.4) fL Immature Gran % (Auto) 1.2 % Neut % (Auto) 84.1 % Lymph % (Auto) 6.4 % [place] % (Auto) 7.7 % Eos % (Auto) 0.3 % Baso % (Auto) 0.3 % Neut # (Auto) 17.40 H (1.40-6.50) K/uL Lymph # (Auto) 1.33 (1.2-3.4) K/uL [place] # (Auto) 1.60 H (0.11-0.59) K/uL Eos # (Auto) 0.06 (0-0.50) K/uL Baso # (Auto) 0.06 (0-0.2) K/uL Immature Gran # (Auto) 0.24 H (0.01-0.20) K/uL Sodium 143 (136-145) mmol/L Potassium 4.3 (3.5-5.1) mmol/L Chloride 109 H (98-107) mmol/L Carbon Dioxide 27 (21-32) mmol/L Anion Gap 7 (3-11) BUN 27 H (6-23) mg/dl Creatinine 1.14 (0.6-1.4) mg/dl Est Cr Clr Drug Dosing 58.0 ml/min Est GFR ( Amer) 70.5 ml/min Est GFR (Non-Af Amer) 60.8 ml/min BUN/Creatinine Ratio 23.7 H (10-20) Glucose 101 H (70-99(Fasting)) mg/dl Calcium 8.4 L (8.6-10.3) mg/dl Phosphorus 2.0 L (2.5-4.9) mg/dl Magnesium 2.0 (1.7-2.4) mg/dl Total Bilirubin 1.3 H (0.2-1.0) mg/dl AST 25 (13-39) U/L ALT 48 (7-52) U/L Alkaline Phosphatase 77 (34-104) U/L Troponin I High Sens 44.2 H D (0-20) pg/ml Total Protein 5.4 L (6.0-8.3) gm/dl Albumin 3.0 L (3.4-5.0) gm/dl Globulin 2.4 L (2.5-4.0) gm/dl Albumin/Globulin Ratio 1.3 (0.9-2) Whole Bld Vitamin B1 Vitamin B12 (180-914) pg/ml TSH (0.300-4.500) uIu/ml Microbiology 08/28/22 14:10 Aerobic Blood Culture - Preliminary Blood No growth in Aerobic bottle after 48 hours. Anaerobic Blood Culture - Final 08/28/22 14:10 Aerobic Blood Culture - Preliminary Blood No growth in Aerobic bottle after 48 hours. Anaerobic Blood Culture - Final
[2022-08-31] MEDS: MELATONIN 3 MG TAB PO SCH (20:45)
[2022-08-31] MEDS ORDERED: OLANZapine 10 MG/2.1 ML SDV IM STA (23:25)
[2022-09-01] MEDS: THIAMINE HCL 500 MG in SODIUM CHLORIDE 0.9% 50 ML IV SCH ×4 (00:13→23:17)
[2022-09-01] MEDS ORDERED: ALBUTEROL 0.083% NEBU SOLN 3 ML VIAL NEB ONE (00:16)
[2022-09-01] MEDS: metroNIDAZOLE 500 MG/100 ML BAG IV SCH ×3 (00:16→17:36)
--- NOTE | 2022-09-01 00:16 | Communication Note ---
Date of Service: September 01, 2022 11:23 received notice becoming increasingly agitated pulling at lines and damian, had delirium all day, has 1:1 however not responding well to redirection. O rdered 1 dose zyprexa 2.5mg IM, patient still agitated pulse ox 85% with noted SOB wheeze refusing oxygen pulling at lines unable to follow directions. Given his necrotizing pancreatitis, will not use additional sedatives at this time. Placed order for soft mitt restraints. Held fluids to reduce risk of line getting pulled out. Ordered nebulizer for wheeze.
[2022-09-01] MEDS: HEPARIN SOD 5,000 UNIT/0.5 ML VIAL SQ SCH ×4 (00:22→23:11)
[2022-09-01 06:29] LABS: Basophils # (auto) 0.07 K/uL (0-0.2); Basophils % (auto) 0.4 %; Eosinophils # (auto) 0.25 K/uL (0-0.50); Eosinophils % (auto) 1.4 %; Hematocrit (blood only) 45.1 % (42.0-52.0); Hemoglobin 15.3 g/dl (14.0-18.0); Immature Granulocytes # (auto) 0.24 K/uL (0.01-0.20); Immature Granulocytes % (auto) 1.3 %; Lymphocytes # (auto) 1.27 K/uL (1.2-3.4); Mean Corpuscular Hemoglobin 31.7 pg (25.0-34.0); Mean Corpuscular Hgb Conc 33.9 g/dL (32.0-36.0); Mean Corpuscular Volume 93.6 fL (80.0-100.0); Mean Platelet Volume 10.9 fL (9.4-12.4); Monocytes # (auto) 1.63 K/uL (0.11-0.59); Neutrophils # (auto) 14.62 K/uL (1.40-6.50); Neutrophils % (auto) 80.9 %; Platelet Count 205 K/uL (130-400); RDW Coefficient of Variation 12.7 % (11.5-14.5); RDW Standard Deviation 43.8 fL (36.4-46.3); Red Blood Count 4.82 M/uL (4.70-6.10); White Blood Count 18.08 K/ul (4.8-10.8)
[2022-09-01 06:37] LABS: Calcium 8.3 mg/dl (8.6-10.3); Potassium 3.8 mmol/L (3.5-5.1)
[2022-09-01 06:42] LABS: Albumin Globulin Ratio 1.2 (0.9-2); BUN Creatinine Ratio 19.1 (10-20); Creatinine Clr Calc Pharmacy 61.4 ml/min; Est GFR (African American) 73.6 ml/min; Est GFR (Non-African American) 63.5 ml/min; Globulin 2.6 gm/dl (2.5-4.0); Phosphorus 2.2 mg/dl (2.5-4.9); Total Protein 5.6 gm/dl (6.0-8.3)
[2022-09-01] MEDS ORDERED: FUROSEMIDE 40 MG/4 ML VIAL IV ONE (06:51)
--- NOTE | 2022-09-01 07:26 | XRay Report ---
XR chest 1V portable CLINICAL HISTORY: Shortness of breath. COMPARISON STUDY: Chest radiograph August 28, 2022. FINDINGS: Lung volumes are noted. No pneumothorax. No definite pleural effusion. Cardiomegaly is unch anged. Pulmonary vascular congestion with possible mild pulmonary edema. Left basilar opacity has dev eloped. IMPRESSION: 1. Cardiomegaly with interval development of pulmonary vascular congestion with possible mild pulmona ry edema. 2. New left basilar opacity which could reflect atelectasis or pneumonia. 3. Low lung volumes. ACT 112: Negative or not required by law. Electronically signed by: Mikael Mehta M.D. 09/01/2022 7:25 AM
[2022-09-01] MEDS: MUPIROCIN 2% OINT 22 GM TUBE TOP SCH ×3 (08:42→21:04)
[2022-09-01] MEDS: PANTOprazole 40 MG in SYRINGE 0 ML IV SCH ×2 (08:43→21:03)
[2022-09-01] MEDS: CEFEPIME 2,000 MG in SYRINGE 0 ML IV SCH ×2 (08:48→17:34)
[2022-09-01] MEDS ORDERED: POTASSIUM PHOS 3 MMOL/1 ML INFUSION IV STA (10:26)
--- NOTE | 2022-09-01 10:41 | Hospitalist Progress Note ---
Date of Service September 01, 2022 Assessment & Plan (1) Acute pancreatitis: Plan: Presented with severe, ?necrotizing pancreatitis and 2 cm cyst in pancreatic head With fever, tachycardia,significant leukocytosis, N/V, sepsis, and WILMER on admission Procal elevated Started on Cefepime and Flagyl Tertiary care contacted initially and declined to accept as not felt to be necessary Found to have choledocholithiasis on MRCP and ERCP 08/30 with 3 cm hiatal hernia, esophagitis of the lower third of the esophagus in addition to cholelithiasis and choledocholithiasis. The patient ultimately underwent ERCP with gallstone extraction, biliary sphincterotomy and biliary stent placement. LFTs continue to improve, leukocytosis continues to improve each day Remains with delirium but somewhat improved with low doses of atypical antipsychotics Developed hypoxia on pulmonary edema on 09/01-IV fluids stopped and was given Lasix - advance to low fat diet today -appreciate GI consult: needs abx x 2 weeks, avoid NSAIDs x 1 week (home ASA being held), Protonix x 3 months, repeat ERCP for stent removal 6-8 weeks, perform EUS in 3 mo for pancreatic cyst and EGD 3 mo for f/u esophagitis -appreciate Surgery consult-plan to delay cholecystectomy until more medically stable, as an outpatient in 3 to 4 weeks prior to stent removal -continue pain control as needed, antiemetics as needed -No evidence of ileus-had a bowel movement x2 on 09/01 -follow CBC, CMP, Mag, Phos and replace as needed-give IV phosphorus again today (2) Sepsis: Plan: as above, 2/2 pancreatitis, improving BCxs NGTD continue abx and tx of pancreatitis as above (3) Acute metabolic encephalopathy: Plan: Patient is with delirium 2/2 pancreatitis and cholangitis, sepsis MRI and CT head were negative. Seems to be waxing and waning but improved somewhat with hallucinations at times, confusion, restlessness, pulling at IVs etc., still requiring 1:1 and required IM Zyprexa overnight on 08/31 avoid sleep agents other than melatonin, but will start scheduled Zyprexa 5 Mg p.o. at bedtime on 09/01 as he has not slept now really in over 48 hours Continue supportive care, encourage sleep/wake cycles, and ambulation with PT/OT TSH, B12 normal Vitamin B1 level drawn and pending-continue to give empiric high-dose IV thiamine in the meantime x6 doses and then convert to p.o. (4) Acute respiratory failure with hypoxia: Plan: Developed hypoxia requiring 4 LNC O2 on the night of 08/31 Chest x-ray with pulmonary edema and evidence of volume overload He did receive copious IV fluids for his severe pancreatitis -He was given Lasix 40 Mg IV x1 on the morning of 09/01 -Now weaned off oxygen, respiratory status improved -Discontinue IV fluids -Monitor for worsening again and give Lasix if needed (5) Cholelithiasis with choledocholithiasis: Plan: as above (6) Esophagitis: Plan: as above continue PPI IV bid then convert to po x 3 mo, repeat EGD in 3 mo (7) WILMER (acute kidney injury): Plan: 2/2 hypovolemia/prerenal from acute pancreatitis and N/V -Resolved now after receiving IVF, holding lisinopril -follow BMP -maintain Iniguez catheter for now but will likely discontinue tomorrow (8) Elevated troponin I level: Plan: trop 57/90/[address]/TW changes similar to previous likely demand ischemia. Continue to monitor on telemetry (9) Pancreatic cyst: Plan: as above, EUS in 3 mo after pancreatitis settles down (10) HTN (hypertension), benign: Plan: BPs acceptable to mildly elevated holding home lisinopril Plan DVT proph-heparin SQ Dispo-continued stay PCU, PT/OT consults recommending inpatient rehab. Not medically stable yet for discharge Care discussed with at the bedside each day Also discussed care with surgery PA on 09/01 Admission and Anticipated Discharge Date Admission Date: August 28, 2022 Subjective Patient apparently did not sleep again at all last night and was very agitated again, pulling at lines. He was placed in soft mitts for restraints and was given IM Zyprexa. When I saw him this morning, his was present and the patient was out of bed to a chair but was sleeping sitting upright in the chair. He did wake up briefly and answer some questions. He is still restless and with some delirium. He had also been placed on oxygen overnight at 4 L and had respiratory distress. He was given IV Lasix and is now weaned to room air and appears improved with respiratory status. His IV fluids were discontinued. Telemetry with normal sinus rhythm and PVCs with rates in 70s to 90s He also had 2 bowel movements this morning as per his and is tolerating some clear liquids diet. Physical Exam Constitutional: WD/WN, vitals as above Respiratory: normal respiratory effort, lungs clear to auscultation Cardiovascular: RRR, no murmur, no edema Gastrointestinal (Abdomen): normal bowel sounds, soft, nontender, no hepatosplenomegaly Neurologic: + confused; no focal motor deficits and + not awake Results & Data Results & Data Vital Signs (Past 12 Hours) Vital Signs Temp Pulse Pulse Resp BP Pulse Ox O2 Del Method 09/01/22 10:24 Room Air 09/01/22 07:27 36.5 C 78 18 129/79 94 Nasal Cannula 09/01/22 03:43 36.5 C 69 14 138/81 94 Nasal Cannula 08/31/22 23:00 84 09/01/22 00:46 87 18 94 Nasal Cannula 08/31/22 22:51 36.8 C 86 18 164/91 H 93 Room Air O2 Flow Rate 09/01/22 10:24 09/01/22 07:27 4 09/01/22 03:43 2 08/31/22 23:00 09/01/22 00:46 2 08/31/22 22:51 Laboratory Results CBC, CMP, magnesium, phosphorus reviewed Diagnostic Findings Chest x-ray image personally reviewed by me PG Care Time/CCT Total # of Minutes Spent Total Time Spent with Patient: Total time spent is greater than 50% in coordination of care (as documented) at patient's floor/unit and/or counseling patient: Coding Level of Care Code 83864 SUB INP/OBS CARE 3/50MIN Diagnoses Acute pancreatitis K85.90 Acute pancreatitis complication: unspecified Pancreatitis type: unspecified pancreatitis type Sepsis A41.9 Acute metabolic encephalopathy G93.41 Acute respiratory failure with hypoxia J96.01 Cholelithiasis with choledocholithiasis K80.70 Esophagitis K20.90 WILMER (acute kidney injury) N17.9 Elevated troponin I level R77.8 Pancreatic cyst K86.2 HTN (hypertension), benign I10 (1) Acute pancreatitis Acute pancreatitis complication: unspecified Pancreatitis type: unspecified pancreatitis type Qualified Code(s): K85.90 - Acute pancreatitis without necrosis or infection, unspecified
[2022-09-01] MEDS ORDERED: POTASSIUM PHOSPHATE 9 MMOL in SODIUM CHLORIDE 0.9% 250 ML IV ONE (10:45)
--- NOTE | 2022-09-01 11:56 | Surgery Progress Note ---
Date of Service September 01, 2022 Assessment & Plan (1) Acute pancreatitis: (2) Sepsis: (3) Cholelithiasis with choledocholithiasis: (4) Acute metabolic encephalopathy: Plan 77 year-old male presented to ED with 1 day history of nausea, vomiting x 7 and upper abdominal pain with elevated leukocytosis of 22k, t. bili of 2.4, and lipase of [address] scan of abd/pelvis showing acute pancreatitis with decreased enhancement of pancreatic body suspicious for developing necrotizing pancreatitis. No peripancreatic fluid collections or focal peripancreatic necrosis. POD # 2 s/p EUS + ERCP found to have choledocholithiasis s/p stent placement x 1 afebrile leukocytosis improved to 18K still with confusion, hallucinations, agitation requiring 1:1, waxes and wanes no abdominal pain , examination without abdominal pain t. bili down and lfts normalized, lipase down to 80 Plan: Given patients severe pancreatitis and encephalopathy, would recommend delaying cholecystectomy until outpatient in about 3-4 weeks. He does have cholelithiasis and would benefit from cholecystectomy to prevent further biliary obstruction however would like further clinical improvement before putting patient under another general anesthetic and surgical procedure. Likely has significant inflammation from the acute pancreatitis which could make laparoscopic procedure more difficult and increase risks of surgery. MRCP showing no signs of acute cholecystitis and the gallbladder filled with contrast during ERCP with patent cystic duct. Continue IV antibiotics, total course of abx therapy for 2 weeks per GI recommendations Clear liquids and advance as tolerated to low fat diet continue current medical management [facility] surgery covering over weekend Dr. diaz has seen and examined patient, agrees with above. Admission and Anticipated Discharge Date Admission Date: August 28, 2022 Subjective patient sitting up in chair at bedside this morning getting ready to work with PT/OT at bedside feeling okay this morning no abdominal pain, n,v per records patient agitated last evening , required soft elis restraints, shortness of breath requiring oxygen via nasal cannula, Iv fluids held given pulmonary congestion. Physical Exam Constitutional: WD/WN, vitals as above cooperative, comfortable, + lethargic and + overweight; no acute distress and not ill appearing Respiratory: normal respiratory effort; no respiratory distress Gastrointestinal (Abdomen): Inspection/Auscultation: abdomen normal to inspection; abdomen not distended Percussion/Palpation: abdomen soft; abdomen nontender, no guarding and abdomen not rigid Skin: no rashes, warm and dry no jaundice Psychiatric: Orientation: alert Results & Data Vital Signs (Past 12 Hours) Vital Signs Temp Pulse Resp BP Pulse Ox O2 Del Method O2 Flow Rate 09/01/22 11:34 36.6 C 83 16 108/70 91 Room Air 09/01/22 10:24 Room Air 09/01/22 07:27 36.5 C 78 18 129/79 94 Nasal Cannula 4 09/01/22 03:43 36.5 C 69 14 138/81 94 Nasal Cannula 2 09/01/22 00:46 87 18 94 Nasal Cannula 2 Laboratory Results 09/01/22 09/01/22 Range/Units 05:51 05:51 WBC 18.08 H (4.8-10.8) K/ul RBC 4.82 (4.70-6.10) M/uL Hgb 15.3 (14.0-18.0) g/dl Hct 45.1 (42.0-52.0) % MCV 93.6 (80.0-100.0) fL MCH 31.7 (25.0-34.0) pg MCHC 33.9 (32.0-36.0) g/dL RDW Std Deviation 43.8 (36.4-46.3) fL RDW Coeff of Zane 12.7 (11.5-14.5) % Plt Count 205 (130-400) K/uL MPV 10.9 (9.4-12.4) fL Immature Gran % (Auto) 1.3 % Neut % (Auto) 80.9 % Lymph % (Auto) 7.0 % [place] % (Auto) 9.0 % Eos % (Auto) 1.4 % Baso % (Auto) 0.4 % Neut # (Auto) 14.62 H (1.40-6.50) K/uL Lymph # (Auto) 1.27 (1.2-3.4) K/uL [place] # (Auto) 1.63 H (0.11-0.59) K/uL Eos # (Auto) 0.25 (0-0.50) K/uL Baso # (Auto) 0.07 (0-0.2) K/uL Immature Gran # (Auto) 0.24 H (0.01-0.20) K/uL Sodium 141 (136-145) mmol/L Potassium 3.8 (3.5-5.1) mmol/L Chloride 108 H (98-107) mmol/L Carbon Dioxide 25 (21-32) mmol/L Anion Gap 8 (3-11) BUN 21 (6-23) mg/dl Creatinine 1.10 (0.6-1.4) mg/dl Est Cr Clr Drug Dosing 61.4 ml/min Est GFR ( Amer) 73.6 ml/min Est GFR (Non-Af Amer) 63.5 ml/min BUN/Creatinine Ratio 19.1 (10-20) Glucose 109 H (70-99(Fasting)) mg/dl Calcium 8.3 L (8.6-10.3) mg/dl Phosphorus 2.2 L (2.5-4.9) mg/dl Magnesium 2.0 (1.7-2.4) mg/dl Total Bilirubin 1.0 (0.2-1.0) mg/dl AST 22 (13-39) U/L ALT 37 (7-52) U/L Alkaline Phosphatase 68 (34-104) U/L Total Protein 5.6 L (6.0-8.3) gm/dl Albumin 3.0 L (3.4-5.0) gm/dl Globulin 2.6 (2.5-4.0) gm/dl Albumin/Globulin Ratio 1.2 (0.9-2)
[2022-09-01] MEDS: OLANZapine ZYDIS 5 MG ORALLY DIS. TAB PO SCH (21:03)
[2022-09-01] MEDS: MELATONIN 3 MG TAB PO SCH (21:03)
[2022-09-02] MEDS: CEFEPIME 2,000 MG in SYRINGE 0 ML IV SCH ×3 (00:31→16:28)
[2022-09-02] MEDS: metroNIDAZOLE 500 MG/100 ML BAG IV SCH ×3 (00:38→16:28)
[2022-09-02] MEDS: OLANZapine ZYDIS 5 MG ORALLY DIS. TAB PO SCH (02:34)
[2022-09-02] MEDS: MELATONIN 3 MG TAB PO SCH ×2 (02:34→22:09)
--- NOTE | 2022-09-02 06:11 | Surgery Progress Note ---
Date of Service September 02, 2022 Assessment & Plan (1) Acute pancreatitis: Plan: Patient has been admitted on the hospitalist service with acute pancreatitis. We recommend proceeding as follows: -Patient has undergone endoscopic ultrasound as well as ERCP and found to have choledocholithiasisa stent has been placed. It appears as though the patient may benefit from cholecystectomy however previous surgical team feels patient should be allowed to recover from his pancreatitis and consideration will be given to performing cholecystectomy as an outpatient. Continue antibiotics in the form of cefepime and Flagyl. Antibiotic should be continued for 2 weeks Continue diet as able Continue analgesics and antiemetics as needed Admission and Anticipated Discharge Date Admission Date: August 28, 2022 Supervising Physician Co-Signing Physician Notes I have seen the patient with the PA and agree with continuation of the above stated plan as initiated by the original consulting surgeon. Subjective Patient is resting comfortably in bed and offers no complaints at this time. I did discuss with the aide sitting with the patient and she did not note any concerns overnight such as patient complaining of worsening pain or or nausea or vomiting. This was confirmed by the RN as well. The patient had not been getting sleep and became delirious now on a 1 to 1. Has finally been able to sleep as of this am. His is at the bedside. Afebrile overnight. Physical Exam Gastrointestinal (Abdomen): Abdomen is soft and nonrigid with positive bowel sounds. Palpation of the abdomen did not elicit a painful response. Results & Data Vital Signs (Past 12 Hours) Vital Signs Temp Pulse Pulse Resp BP BP Pulse Ox 09/02/22 03:05 37 C 67 20 123/72 94 09/01/22 23:00 69 09/01/22 20:00 09/01/22 23:05 37.1 C 71 22 144/69 H 95 09/01/22 19:05 37 C 80 24 118/72 94 O2 Del Method 09/02/22 03:05 Room Air 09/01/22 23:00 09/01/22 20:00 Room Air 09/01/22 23:05 Room Air 09/01/22 19:05 Room Air PG Care Time/CCT Total # of Minutes Spent Total Time Spent with Patient: Total time spent is greater than 50% in coordination of care (as documented) at patient's floor/unit and/or counseling patient: C[place] [address] SUB INP/OBS CARE 1/25MIN Patient Type Established Medical Decision Making Straight Forward Diagnoses Acute pancreatitis K85.90
[2022-09-02 07:26] LABS: Basophils # (auto) 0.14 K/uL (0-0.2); Basophils % (auto) 0.8 %; Eosinophils % (auto) 4.4 %; Hematocrit (blood only) 39.4 % (42.0-52.0); Hemoglobin 13.5 g/dl (14.0-18.0); Immature Granulocytes # (auto) 0.86 K/uL (0.01-0.20); Immature Granulocytes % (auto) 4.8 %; Lymphocytes # (auto) 2.46 K/uL (1.2-3.4); Lymphocytes % (auto) 13.6 %; Mean Corpuscular Hgb Conc 34.3 g/dL (32.0-36.0); Mean Corpuscular Volume 93.4 fL (80.0-100.0); Monocytes % (auto) 9.4 %; Neutrophils # (auto) 12.07 K/uL (1.40-6.50); Platelet Count 222 K/uL (130-400); RDW Standard Deviation 44.5 fL (36.4-46.3); Red Blood Count 4.22 M/uL (4.70-6.10); White Blood Count 18.03 K/ul (4.8-10.8)
[2022-09-02 07:46] LABS: Albumin Level 2.7 gm/dl (3.4-5.0); BUN Creatinine Ratio 20.2 (10-20); Bilirubin,Total 0.7 mg/dl (0.2-1.0); Calcium 8.1 mg/dl (8.6-10.3); Creatinine Clr Calc Pharmacy 52.1 ml/min; Est GFR (African American) 60.7 ml/min; Est GFR (Non-African American) 52.4 ml/min; Globulin 2.6 gm/dl (2.5-4.0); Phosphorus 2.1 mg/dl (2.5-4.9); Potassium 3.4 mmol/L (3.5-5.1); Total Protein 5.3 gm/dl (6.0-8.3)
[2022-09-02] MEDS: HEPARIN SOD 5,000 UNIT/0.5 ML VIAL SQ SCH ×3 (08:15→23:37)
[2022-09-02] MEDS ORDERED: POTASSIUM PHOS 3 MMOL/1 ML INFUSION IV STA (09:19)
[2022-09-02] MEDS ORDERED: POTASSIUM PHOSPHATE 15 MMOL in SODIUM CHLORIDE 0.9% 250 ML IV ONE (09:45)
[2022-09-02] MEDS ORDERED: OLANZapine ZYDIS 5 MG ORALLY DIS. TAB PO PRN (10:10)
[2022-09-02] MEDS: PANTOprazole 40 MG in SYRINGE 0 ML IV SCH (10:11)
--- NOTE | 2022-09-02 10:11 | Hospitalist Progress Note ---
Date of Service September 02, 2022 Assessment & Plan (1) Acute pancreatitis: Plan: Presented with severe, ?necrotizing pancreatitis and 2 cm cyst in pancreatic head With fever, tachycardia,significant leukocytosis, N/V, sepsis, and WILMER on admission Procal elevated Started on Cefepime and Flagyl Tertiary care contacted initially and declined to accept as not felt to be necessary Found to have choledocholithiasis on MRCP and ERCP 08/30 with 3 cm hiatal hernia, esophagitis of the lower third of the esophagus in addition to cholelithiasis and choledocholithiasis. The patient ultimately underwent ERCP with gallstone extraction, biliary sphincterotomy and biliary stent placement. LFTs now completely normal, leukocytosis much improved but stable today from yesterday at 18 Delirium is now significantly improved as of 09/02 in the afternoon after 2 low doses of atypical antipsychotics and after finally getting some sleep after not sleeping for almost 3 days Developed hypoxia on pulmonary edema on 09/01-IV fluids stopped and was given Lasix -Tolerating a low fat diet, moving bowels, no abdominal pains -appreciate GI consult: needs abx x 2 weeks, avoid NSAIDs x 1 week (home ASA being held), Protonix x 3 months, repeat ERCP for stent removal 6-8 weeks, perform EUS in 3 mo for pancreatic cyst and EGD 3 mo for f/u esophagitis -appreciate Surgery consult-plan to delay cholecystectomy until more medically stable, as an outpatient in 3 to 4 weeks prior to stent removal -continue pain control as needed, antiemetics as needed -follow CBC, CMP, Mag, Phos and replace as needed-give IV potassium phosphorus again today -Remove Iniguez catheter and continue to encourage ambulation -Continue cefepime and Flagyl (2) Sepsis: Plan: as above, 2/2 pancreatitis, improving BCxs remain NGTD continue abx and tx of pancreatitis as above (3) Acute metabolic encephalopathy: Plan: Patient is with delirium 2/2 pancreatitis and cholangitis, sepsis MRI and CT head were negative. Waxing and waning for several days but finally significantly improved as above on 09/02 after finally getting a solid night's rest, also received high-dose IV thiamine x2 days Was having hallucinations at times, confusion, restlessness, pulling at IVs etc., requiring 1:1 and required IM Zyprexa overnight on 08/31 Continue supportive care, encourage sleep/wake cycles, and ambulation with PT/OT Continue Zyprexa 5 mg p.o. at bedtime as needed for agitation TSH, B12 normal Vitamin B1 level drawn and pending-continue to give empiric thiamine but will convert to 100 Mg p.o. once daily for tomorrow (4) Acute respiratory failure with hypoxia: Plan: Developed hypoxia requiring 4 LNC O2 on the night of 08/31 Chest x-ray with pulmonary edema and evidence of volume overload He did receive copious IV fluids for his severe pancreatitis -He was given Lasix 40 Mg IV x1 on the morning of 09/01 -Now weaned off oxygen, respiratory status much improved but with some cough -Monitor for worsening again and give Lasix if needed -Start incentive spirometry (5) Cholelithiasis with choledocholithiasis: Plan: as above Needs cholecystectomy in 3 to 4 weeks (6) Esophagitis: Plan: as above continue PPI but convert to p.o. twice daily Remain on PPI po x 3 mo, repeat EGD in 3 mo (7) WILMER (acute kidney injury): Plan: 2/2 hypovolemia/prerenal from acute pancreatitis and N/V -Resolved now after receiving IVF, holding lisinopril -follow BMP -Discontinue Iniguez catheter and trial of void, watch for PVRs being elevated (8) Elevated troponin I level: Plan: trop 57/90/[address]/TW changes similar to previous likely demand ischemia. Continue to monitor on telemetry (9) Pancreatic cyst: Plan: as above, EUS in 3 mo after pancreatitis settles down (10) HTN (hypertension), benign: Plan: BPs now normal after being hypertensive holding home lisinopril Plan DVT proph-heparin SQ Dispo-continued stay PCU, PT/OT consults recommending inpatient rehab. Not medically stable yet for discharge but improving Care discussed with at the bedside again on 09/02 on 2 occasions Also discussed care with surgery PA on 09/01 Admission and Anticipated Discharge Date Admission Date: August 28, 2022 Subjective Patient was seen on 2 occasions today. In the morning, he was sleeping soundly and had been for several hours and through the night as per nursing. I spoke to his at the bedside. Came back to see the patient in the afternoon and he was wide-awake, significantly less confused, was out of bed to chair and able to interact appropriately. He denied any problems. He was hesitant to take his Iniguez catheter out as he was afraid he would have incontinence. 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 He did develop a bit of a cough today. Remains afebrile. He is moving his bowels. Telemetry with normal sinus rhythm with rates in the 60s Physical Exam Constitutional: WD/WN, vitals as above Respiratory: normal respiratory effort, lungs clear to auscultation Cardiovascular: RRR, no murmur, no edema Gastrointestinal (Abdomen): normal bowel sounds, soft, nontender, no hepatosplenomegaly Neurologic: awake; no focal motor deficits and not confused Psychiatric: Orientation: alert, oriented to person, oriented to place and cooperative Overall significantly improved mentation, not restless or agitated Genitourinary: Iniguez catheter in place draining clear yellow urine Results & Data Results & Data Vital Signs (Past 12 Hours) Vital Signs Temp Pulse Pulse Resp BP BP Pulse Ox 09/02/22 07:37 36.7 C 57 L 20 125/80 93 09/02/22 03:05 37 C 67 20 123/72 94 09/01/22 23:00 69 09/01/22 23:05 37.1 C 71 22 144/69 H 95 O2 Del Method 09/02/22 07:37 Room Air 09/02/22 03:05 Room Air 09/01/22 23:00 09/01/22 23:05 Room Air Laboratory Results CBC, CMP, phosphorus and magnesium reviewed Blood cultures no growth to date PG Care Time/CCT Total # of Minutes Spent Total Time Spent with Patient: Total time spent is greater than 50% in coordination of care (as documented) at patient's floor/unit and/or counseling patient: Coding Level of Care Code 50838 SUB INP/OBS CARE 3/50MIN Diagnoses Acute pancreatitis K85.90 Acute pancreatitis complication: unspecified Pancreatitis type: unspecified pancreatitis type Sepsis A41.9 Acute metabolic encephalopathy G93.41 Acute respiratory failure with hypoxia J96.01 Cholelithiasis with choledocholithiasis K80.70 Esophagitis K20.90 WILMER (acute kidney injury) N17.9 Elevated troponin I level R77.8 Pancreatic cyst K86.2 HTN (hypertension), benign I10 (1) Acute pancreatitis Acute pancreatitis complication: unspecified Pancreatitis type: unspecified pancreatitis type Qualified Code(s): K85.90 - Acute pancreatitis without necrosis or infection, unspecified
[2022-09-02] MEDS: MUPIROCIN 2% OINT 22 GM TUBE TOP SCH (10:13)
[2022-09-02] MEDS: HYDROCORTISONE 1% CRM 30 GM TUBE EXT SCH ×2 (16:29→20:45)
[2022-09-02] MEDS: PANTOprazole 40 MG TAB PO SCH (20:45)
[2022-09-03] MEDS: CEFEPIME 2,000 MG in SYRINGE 0 ML IV SCH ×2 (01:34→07:34)
[2022-09-03] MEDS: metroNIDAZOLE 500 MG/100 ML BAG IV SCH ×2 (01:34→07:24)
--- NOTE | 2022-09-03 06:12 | Surgery Progress Note ---
Date of Service September 03, 2022 Assessment & Plan (1) Acute pancreatitis: Plan: Patient has been admitted on the hospitalist service and is being treated for acute pancreatitis. Leukocytosis was resolving and now has remained stable for the past few days. Patient is HD stable, afebrile and does not appear toxic. Leukocytosis likely secondary to pancreatic inflammation. Continue plan as follows: -Patient has undergone endoscopic ultrasound as well as ERCP this admission and found to have choledocholithiasisa stent has been placed. [facility] surgical team feels patient would benefit from cholecystectomy, but due to recent pancreatitis they are going to allow him to recover from this and consider cholecystectomy as an outpatient. Continue antibiotics in the form of Cefepime and Flagyl with plans to transition to oral antibiotics at time of discharge for a total of 2 weeks Continue diet as able Continue analgesics and antiemetics as needed Admission and Anticipated Discharge Date Admission Date: August 28, 2022 Subjective Patient is sitting up in a chair at the time of my examination with the surgical PA and has eaten breakfast without complaints. He denies abdominal pain, n/v and states he had a BM o/n, passing flatus. No fevers, shakes, or chills noted. Itz discussed with the cage shift manager RN who verified the above information and does not report any issues or concerns at the present time. Physical Exam Gastrointestinal (Abdomen): Bowel sounds are present. Abdomen is soft, nontender and nonrigid. Abdomen is also nondistended. There is no pain noted with palpation on today's exam. Results & Data Vital Signs (Past 12 Hours) Vital Signs Temp Pulse Pulse Resp BP BP Pulse Ox 09/02/22 23:00 70 09/03/22 02:45 36.9 C 65 18 137/76 94 09/02/22 20:00 09/02/22 22:46 37 C 65 18 127/73 94 09/02/22 19:15 36.7 C 74 18 131/74 95 O2 Del Method 09/02/22 23:00 09/03/22 02:45 Room Air 09/02/22 20:00 Room Air 09/02/22 22:46 Room Air 09/02/22 19:15 Room Air PG Care Time/CCT Total # of Minutes Spent Total Time Spent with Patient: Total time spent is greater than 50% in coordination of care (as documented) at patient's floor/unit and/or counseling patient: Coding [place] [address] SUB INP/OBS CARE 05/10MIN Patient Type Established History Problem Focused Exam Problem Focused Medical Decision Making Low Complexity Diagnoses Acute pancreatitis K85.90
[2022-09-03 07:13] LABS: Basophils # (auto) 0.03 K/uL (0-0.2); Basophils % (auto) 0.2 %; Eosinophils # (auto) 0.99 K/uL (0-0.50); Eosinophils % (auto) 5.3 %; Hematocrit (blood only) 37.2 % (42.0-52.0); Hemoglobin 12.8 g/dl (14.0-18.0); Immature Granulocytes # (auto) 1.24 K/uL (0.01-0.20); Immature Granulocytes % (auto) 6.6 %; Lymphocytes # (auto) 2.32 K/uL (1.2-3.4); Lymphocytes % (auto) 12.4 %; Mean Corpuscular Hemoglobin 31.5 pg (25.0-34.0); Mean Corpuscular Hgb Conc 34.4 g/dL (32.0-36.0); Mean Corpuscular Volume 91.6 fL (80.0-100.0); Mean Platelet Volume 11.1 fL (9.4-12.4); Monocytes # (auto) 1.66 K/uL (0.11-0.59); Monocytes % (auto) 8.9 %; Neutrophils # (auto) 12.44 K/uL (1.40-6.50); Neutrophils % (auto) 66.6 %; Platelet Count 233 K/uL (130-400); RDW Coefficient of Variation 13.1 % (11.5-14.5); RDW Standard Deviation 44.4 fL (36.4-46.3); Red Blood Count 4.06 M/uL (4.70-6.10); White Blood Count 18.68 K/ul (4.8-10.8)
[2022-09-03 07:18] LABS: Albumin Globulin Ratio 1.1 (0.9-2); Albumin Level 2.6 gm/dl (3.4-5.0); BUN Creatinine Ratio 20.7 (10-20); Bilirubin,Total 0.6 mg/dl (0.2-1.0); Calcium 7.9 mg/dl (8.6-10.3); Creatinine Clr Calc Pharmacy 55.4 ml/min; Est GFR (African American) 65.6 ml/min; Est GFR (Non-African American) 56.6 ml/min; Globulin 2.4 gm/dl (2.5-4.0); Phosphorus 2.6 mg/dl (2.5-4.9); Potassium 3.4 mmol/L (3.5-5.1)
[2022-09-03] MEDS: HEPARIN SOD 5,000 UNIT/0.5 ML VIAL SQ SCH ×2 (07:24→17:22)
[2022-09-03] MEDS: HYDROCORTISONE 1% CRM 30 GM TUBE EXT SCH ×2 (07:25→21:33)
[2022-09-03] MEDS: THIAMINE HCL 100 MG TAB PO SCH (07:26)
[2022-09-03] MEDS: PANTOprazole 40 MG TAB PO SCH ×2 (07:26→20:00)
[2022-09-03] MEDS ORDERED: POTASSIUM CHLORIDE CRTAB 20 MEQ TABCR PO STA (08:40)
[2022-09-03] MEDS: CIPROFLOXACIN 500 MG TAB PO SCH ×2 (09:14→20:00)
[2022-09-03] MEDS: metroNIDAZOLE 500 MG TAB PO SCH ×3 (09:14→20:00)
[2022-09-03] MEDS ORDERED: COUGH DROP (SUGAR FREE) LOZ 24 LOZ/1 BOX BUCCAL ONE (13:48)
--- NOTE | 2022-09-03 16:19 | Hospitalist Progress Note ---
Date of Service September 03, 2022 Assessment & Plan (1) Acute pancreatitis: Plan: Presented with severe, ?necrotizing gallstone pancreatitis and 2 cm cyst in pancreatic head With fever, tachycardia,significant leukocytosis, N/V, sepsis, and WILMER on admission Procal elevated Started on Cefepime and Flagyl Tertiary care contacted initially and declined to accept as not felt to be necessary Found to have choledocholithiasis on MRCP and ERCP 08/30 with 3 cm hiatal hernia, esophagitis of the lower third of the esophagus in addition to cholelithiasis and choledocholithiasis. The patient ultimately underwent ERCP with gallstone extraction, biliary sphincterotomy and biliary stent placement. LFTs now completely normal except AST minimally elevated, leukocytosis much improved from previous but stable today again from yesterday at 18 with some eosinophilia perhaps associated with the rash on his back and may be due to cefepime? Delirium is now resolved as of 09/02 in the afternoon after 2 low doses of atypical antipsychotics and after finally getting some sleep after not sleeping for almost 3 days Developed hypoxia on pulmonary edema on 09/01-IV fluids stopped and was given Lasix -Tolerating a low fat diet, moving bowels, no abdominal pains -appreciate GI consult: needs abx x 2 weeks, avoid NSAIDs x 1 week (home ASA being held), Protonix x 3 months, repeat ERCP for stent removal 6-8 weeks, perform EUS in 3 mo for pancreatic cyst and EGD 3 mo for f/u esophagitis -appreciate Surgery consult-plan to delay cholecystectomy until more medically stable, as an outpatient in 3 to 4 weeks prior to stent removal -continue pain control as needed, antiemetics as needed -follow CBC, CMP, Mag, Phos and replace as needed-give p.o. potassium -Changed to p.o. Cipro and Flagyl and finish out 14-day course (2) Sepsis: Plan: as above, 2/2 pancreatitis, resolved BCxs remain NGTD With persistent leukocytosis likely secondary to pancreatitis but also with eosinophilia perhaps related to rash on back Follow CBC continue abx and tx of pancreatitis as above (3) Acute metabolic encephalopathy: Plan: Patient is with delirium 2/2 pancreatitis and cholangitis, sepsis MRI and CT head were negative. Waxing and waning for several days but finally significantly improved as above on 09/02 after finally getting a solid night's rest, also received high-dose IV thiamine x2 days Was having hallucinations at times, confusion, restlessness, pulling at IVs etc., requiring 1:1 and required IM Zyprexa overnight on 08/31 Continue supportive care, encourage sleep/wake cycles, and ambulation with PT/OT Continue Zyprexa 5 mg p.o. at bedtime as needed for agitation-has not needed TSH, B12 normal Vitamin B1 level drawn and pending-continue to give empiric thiamine 100 Mg p.o. once daily for tomorrow (4) Acute respiratory failure with hypoxia: Plan: Developed hypoxia requiring 4 LNC O2 on the night of 08/31 Chest x-ray with pulmonary edema and evidence of volume overload He did receive copious IV fluids for his severe pancreatitis -He was given Lasix 40 Mg IV x1 on the morning of 09/01 -Now weaned off oxygen, respiratory status much improved, cough now improved with using incentive spirometry -Monitor for worsening again and give Lasix if needed -Continue incentive spirometry (5) Cholelithiasis with choledocholithiasis: Plan: as above Needs cholecystectomy in 3 to 4 weeks (6) Esophagitis: Plan: as above continue PPI p.o. twice daily Remain on PPI po x 3 mo, repeat EGD in 3 mo (7) WILMER (acute kidney injury): Plan: 2/2 hypovolemia/prerenal from acute pancreatitis and N/V -Resolved now after receiving IVF, holding lisinopril -follow BMP -Iniguez catheter out and voiding (8) Elevated troponin I level: Plan: trop 57/90/[address]/TW changes similar to previous likely demand ischemia. No arrhythmias on telemetry (9) Pancreatic cyst: Plan: as above, EUS in 3 mo after pancreatitis settles down (10) HTN (hypertension), benign: Plan: BPs now normal after being hypertensive holding home lisinopril but can restart tomorrow Plan DVT proph-heparin SQ Dispo-continued stay PCU, PT/OT consults recommending inpatient rehab, but seems to be improving-we will have PT reevaluate on Sunday. Not medically stable yet for discharge but possibly will be by Sunday Care discussed with at the bedside again on 09/02 and again on 09/03 Admission and Anticipated Discharge Date Admission Date: August 28, 2022 Subjective Patient feeling well today, appetite picking up. Moved his bowels a small amount. Is voiding. Rash persists on back but is not itchy. Normal sinus rhythm with rates in the 70s on telemetry Physical Exam Constitutional: WD/WN, vitals as above Respiratory: normal respiratory effort, lungs clear to auscultation Cardiovascular: RRR, no murmur, no edema Gastrointestinal (Abdomen): normal bowel sounds, soft, nontender, no hepatosplenomegaly Skin: + rash (Entire back with macular erythematous pinpoint rash) Neurologic: awake; no focal motor deficits and not confused Psychiatric: Orientation: alert, oriented to person, oriented to place and cooperative Results & Data Results & Data Vital Signs (Past 12 Hours) Vital Signs Temp Pulse Pulse Resp BP BP Pulse Ox 09/03/22 15:14 36.8 C 68 22 144/77 H 95 09/03/22 11:26 36.7 C 64 20 122/77 97 09/03/22 08:00 65 09/03/22 08:04 36.6 C 65 20 130/92 94 O2 Del Method 09/03/22 15:14 Room Air 09/03/22 11:26 Room Air 09/03/22 08:00 09/03/22 08:04 Room Air Laboratory Results CBC, CMP, magnesium, phosphorus levels reviewed, blood cultures no growth to date PG Care Time/CCT Total # of Minutes Spent Total Time Spent with Patient: Total time spent is greater than 50% in coordination of care (as documented) at patient's floor/unit and/or counseling patient: Coding Level of Care Code 02698 SUB INP/OBS CARE 3/50MIN Diagnoses Acute pancreatitis K85.90 Acute pancreatitis complication: unspecified Pancreatitis type: unspecified pancreatitis type Sepsis A41.9 Acute metabolic encephalopathy G93.41 Acute respiratory failure with hypoxia J96.01 Cholelithiasis with choledocholithiasis K80.70 Esophagitis K20.90 WILMER (acute kidney injury) N17.9 Elevated troponin I level R77.8 Pancreatic cyst K86.2 HTN (hypertension), benign I10 (1) Acute pancreatitis Acute pancreatitis complication: unspecified Pancreatitis type: unspecified pancreatitis type Qualified Code(s): K85.90 - Acute pancreatitis without necrosis or infection, unspecified
[2022-09-03] MEDS: MELATONIN 3 MG TAB PO SCH (23:07)
[2022-09-04] MEDS: HEPARIN SOD 5,000 UNIT/0.5 ML VIAL SQ SCH ×4 (00:07→20:53)
[2022-09-04] MEDS ORDERED: OLANZapine 10 MG/2.1 ML SDV IM STA (04:46)
[2022-09-04 08:02] LABS: Bilirubin,Total 0.6 mg/dl (0.2-1.0); Calcium 8.5 mg/dl (8.6-10.3); Magnesium 2.1 mg/dl (1.7-2.4); Potassium 3.6 mmol/L (3.5-5.1)
[2022-09-04 08:08] LABS: BUN Creatinine Ratio 17.5 (10-20); Creatinine Clr Calc Pharmacy 55.8 ml/min; Est GFR (African American) 66.3 ml/min; Est GFR (Non-African American) 57.2 ml/min; Globulin 2.9 gm/dl (2.5-4.0); Total Protein 5.9 gm/dl (6.0-8.3)
[2022-09-04 08:20] LABS: Hemoglobin 13.4 g/dl (14.0-18.0); Mean Corpuscular Hemoglobin 32.1 pg (25.0-34.0); Mean Corpuscular Hgb Conc 34.4 g/dL (32.0-36.0); Mean Corpuscular Volume 93.5 fL (80.0-100.0); Platelet Count 286 K/uL (130-400); RDW Coefficient of Variation 13.2 % (11.5-14.5); RDW Standard Deviation 45.2 fL (36.4-46.3); Red Blood Count 4.17 M/uL (4.70-6.10); White Blood Count 18.82 K/ul (4.8-10.8)
[2022-09-04 08:25] LABS: ALC (manual) 1.51 K/uL (1.2-3.4); ANC (manual) 13.93 K/uL (1.4-6.5); Eosinophils # (manual) 1.13 K/uL (0-0.50); Eosinophils % (manual) 6 %; Lymphocytes # (manual) 1.51 K/uL (1.2-3.4); Lymphocytes % (manual) 8 %; Metamyelocytes # (manual) 0.75 K/uL (0-0); Metamyelocytes % (manual) 4 %; Monocytes # (manual) 1.13 K/uL (0.11-0.59); Monocytes % (manual) 6 %; Myelocytes # (manual) 0.38 K/uL (0-0); Myelocytes % (manual) 2 %; Neutrophils # (manual) 13.93 K/uL (1.40-6.50); Neutrophils % (manual) 74 %
[2022-09-04] MEDS: lisinopril 5 MG TAB PO SCH (09:02)
[2022-09-04] MEDS: THIAMINE HCL 100 MG TAB PO SCH (09:02)
[2022-09-04] MEDS: metroNIDAZOLE 500 MG TAB PO SCH ×3 (09:02→20:53)
[2022-09-04] MEDS: HYDROCORTISONE 1% CRM 30 GM TUBE EXT SCH ×2 (09:03→20:54)
[2022-09-04] MEDS: CIPROFLOXACIN 500 MG TAB PO SCH ×2 (09:03→20:53)
[2022-09-04] MEDS: PANTOprazole 40 MG TAB PO SCH ×2 (10:44→20:54)
--- NOTE | 2022-09-04 12:24 | Surgery Progress Note ---
Date of Service September 04, 2022 Assessment & Plan (1) Acute pancreatitis: Plan: 09/04/2022 12:23PM F/U pancreatitis, cholelithiasis pt is doing better, no fever, no abdominal pain, tolerated diet, but WBC 18,000 based on high WBC, I recommend to do CT scan to R/O pancreatic abscess, D/W benefits, risks and alternatives of the CT scan with pt and his , they agreed with CT scan, I answered all questions, repeat lab sin morning will F/U, (2) Sepsis: (3) Cholelithiasis with choledocholithiasis: Plan: will do cholecystectomy out patient setting. (4) Acute metabolic encephalopathy: Plan 77 year-old male presented to ED with 1 day history of nausea, vomiting x 7 and upper abdominal pain with elevated leukocytosis of 22k, t. bili of 2.4, and lipase of [address] scan of abd/pelvis showing acute pancreatitis with decreased enhancement of pancreatic body suspicious for developing necrotizing pancreatitis. No peripancreatic fluid collections or focal peripancreatic necrosis. POD # 2 s/p EUS + ERCP found to have choledocholithiasis s/p stent placement x 1 afebrile leukocytosis improved to 18K still with confusion, hallucinations, agitation requiring 1:1, waxes and wanes no abdominal pain , examination without abdominal pain t. bili down and lfts normalized, lipase down to 80 Plan: Given patients severe pancreatitis and encephalopathy, would recommend delaying cholecystectomy until outpatient in about 3-4 weeks. He does have cholelithiasis and would benefit from cholecystectomy to prevent further biliary obstruction however would like further clinical improvement before putting patient under another general anesthetic and surgical procedure. Likely has significant inflammation from the acute pancreatitis which could make laparoscopic procedure more difficult and increase risks of surgery. MRCP showing no signs of acute cholecystitis and the gallbladder filled with contrast during ERCP with patent cystic duct. Continue IV antibiotics, total course of abx therapy for 2 weeks per GI recommendations Clear liquids and advance as tolerated to low fat diet continue current medical management [facility] covering over weekend Dr. diaz has seen and examined patient, agrees with above. Admission and Anticipated Discharge Date Admission Date: August 28, 2022 Supervising Physician Co-Signing Physician Notes I have seen the patient with the PA and agree with continuation of the above stated plan as initiated by the original consulting surgeon. Subjective Patient feeling well today, appetite picking up. Moved his bowels a small amount. Is voiding. Rash persists on back but is not itchy. Normal sinus rhythm with rates in the 70s on telemetry 09/04/2022 12:[address] Diaz F/U pancreatitis, doing better, tolerated diet. no nausea and vomiting. no abdominal pain, no fever, but WBC 18,000. Physical Exam Constitutional: WD/WN, vitals as above Eyes: PERRL, conjunctivae normal, anicteric sclerae Neck: trachea midline, no thyromegaly Respiratory: normal respiratory effort, lungs clear to auscultation Gastrointestinal (Abdomen): soft, NT, ND, BS +, Neurologic: patellar DTR's 2+ bilat, sensation intact Psychiatric: A+Ox3, euthymic affect Results & Data Vital Signs (Past 12 Hours) Vital Signs Temp Pulse Pulse Resp BP Pulse Ox O2 Del Method 09/04/22 11:44 36.5 C 59 L 18 136/75 97 Room Air 09/04/22 08:00 Room Air 09/04/22 07:00 64 09/04/22 07:21 36.7 C 63 20 139/79 96 Room Air 09/04/22 03:17 36.9 C 63 18 130/77 96 Room Air Laboratory Results Lab Results 08/28/22 08/28/22 08/28/22 Range/Units 09:10 09:10 14:10 WBC 22.92 H (4.8-10.8) K/ul RBC 5.39 (4.70-6.10) M/uL Hgb 17.2 (14.0-18.0) g/dl Hct 49.3 (42.0-52.0) % MCV 91.5 (80.0-100.0) fL MCH 31.9 (25.0-34.0) pg MCHC 34.9 (32.0-36.0) g/dL RDW Std Deviation 42.5 (36.4-46.3) fL RDW Coeff of Zane 12.8 (11.5-14.5) % Plt Count 251 (130-400) K/uL MPV 10.7 (9.4-12.4) fL Immature Gran % (Auto) 0.9 % Neut % (Auto) 86.2 % Lymph % (Auto) 3.5 % [place] % (Auto) 9.2 % Eos % (Auto) 0.0 % Baso % (Auto) 0.2 % Neut # (Auto) 19.76 H (1.40-6.50) K/uL Lymph # (Auto) 0.80 L (1.2-3.4) K/uL [place] # (Auto) 2.12 H (0.11-0.59) K/uL Eos # (Auto) 0.00 (0-0.50) K/uL Baso # (Auto) 0.04 (0-0.2) K/uL Immature Gran # (Auto) 0.20 (0.01-0.20) K/uL Neutrophils % (Manual) % Lymphocytes % (Manual) % Monocytes % (Manual) % Eosinophils % (Manual) % Metamyelocytes % (Man) % Myelocytes % (Man) % Neutrophils # (Manual) (1.40-6.50) K/uL Total Absolute Neuts (1.4-6.5) K/uL Lymphocytes # (Manual) (1.2-3.4) K/uL Total Abs Lymphocytes (1.2-3.4) K/uL Monocytes # (Manual) (0.11-0.59) K/uL Eosinophils # (Manual) (0-0.50) K/uL Metamyelocytes # (Man) (0-0) K/uL Myelocytes # (Manual) (0-0) K/uL VBG pH (7.36-7.41) VBG pCO2 (38-50) mmHg VBG pO2 mmHg VBG HCO3 mmol/L VBG O2 Saturation % VBG Base Excess mEq/L Sodium 139 139 (136-145) mmol/L Potassium 4.0 4.3 (3.5-5.1) mmol/L Chloride 101 104 (98-107) mmol/L Carbon Dioxide 29 27 (21-32) mmol/L Anion Gap 9 8 (3-11) BUN 34 H 32 H (6-23) mg/dl Creatinine 1.45 H 1.36 (0.6-1.4) mg/dl Est Cr Clr Drug Dosing 45.5 48.5 ml/min Est GFR ( Amer) 52.7 57.0 ml/min Est GFR (Non-Af Amer) 45.5 49.1 ml/min BUN/Creatinine Ratio 23.4 H 23.5 H (10-20) Glucose 178 H 161 H (70-99(Fasting)) mg/dl POC Glucose (70-99) mg/dl Calcium 9.5 9.0 (8.6-10.3) mg/dl Phosphorus (2.5-4.9) mg/dl Magnesium (1.7-2.4) mg/dl Total Bilirubin 2.4 H (0.2-1.0) mg/dl AST 29 (13-39) U/L ALT 35 (7-52) U/L Alkaline Phosphatase 55 (34-104) U/L Troponin I High Sens 51.1 H* (0-20) pg/ml C-Reactive Protein 7.08 H (0-0.5) mg/dl Total Protein 7.1 (6.0-8.3) gm/dl Albumin 4.3 (3.4-5.0) gm/dl Globulin 2.8 (2.5-4.0) gm/dl Albumin/Globulin Ratio 1.5 (0.9-2) Lipase 1057 H (11-82) U/L Vitamin B12 (180-914) pg/ml Procalcitonin (0-0.5) ng/ml TSH (0.300-4.500) uIu/ml Urine Color Urine Appearance (Clear) Urine pH (4.5-7.5) Ur Specific [place] (1.000-1.030) Urine Protein (Negative) Urine Glucose (UA) (Negative) Urine Ketones (Negative) Urine Blood (Negative) Urine Nitrite (Negative) Urine Bilirubin (Negative) Urine Urobilinogen (Negative) Ur Leukocyte Esterase (Negative) Urine WBC (Auto) (0-5) /hpf Urine RBC (Auto) (0-4) /hpf U Hyaline Cast (Auto) (0-5) /lpf U Epithel Cells (Auto) (0-5) /lpf Urine Bacteria (Auto) (Negative) Ur Renal Epithelial Cell (0-5) /lpf SARS-CoV-2, RNA, NAAT (NEGATIVE) 08/28/22 08/28/22 08/28/22 Range/Units 14:10 14:10 16:10 WBC (4.8-10.8) K/ul RBC (4.70-6.10) M/uL Hgb (14.0-18.0) g/dl Hct (42.0-52.0) % MCV (80.0-100.0) fL MCH (25.0-34.0) pg MCHC (32.0-36.0) g/dL RDW Std Deviation (36.4-46.3) fL RDW Coeff of Zane (11.5-14.5) % Plt Count (130-400) K/uL MPV (9.4-12.4) fL Immature Gran % (Auto) % Neut % (Auto) % Lymph % (Auto) % [place] % (Auto) % Eos % (Auto) % Baso % (Auto) % Neut # (Auto) (1.40-6.50) K/uL Lymph # (Auto) (1.2-3.4) K/uL [place] # (Auto) (0.11-0.59) K/uL Eos # (Auto) (0-0.50) K/uL Baso # (Auto) (0-0.2) K/uL Immature Gran # (Auto) (0.01-0.20) K/uL Neutrophils % (Manual) % Lymphocytes % (Manual) % Monocytes % (Manual) % Eosinophils % (Manual) % Metamyelocytes % (Man) % Myelocytes % (Man) % Neutrophils # (Manual) (1.40-6.50) K/uL Total Absolute Neuts (1.4-6.5) K/uL Lymphocytes # (Manual) (1.2-3.4) K/uL Total Abs Lymphocytes (1.2-3.4) K/uL Monocytes # (Manual) (0.11-0.59) K/uL Eosinophils # (Manual) (0-0.50) K/uL Metamyelocytes # (Man) (0-0) K/uL Myelocytes # (Manual) (0-0) K/uL VBG pH 7.40 (7.36-7.41) VBG pCO2 47 (38-50) mmHg VBG pO2 21 mmHg VBG HCO3 29 mmol/L VBG O2 Saturation < 60.0 % VBG Base Excess 3.5 mEq/L Sodium (136-145) mmol/L Potassium (3.5-5.1) mmol/L Chloride (98-107) mmol/L Carbon Dioxide (21-32) mmol/L Anion Gap (3-11) BUN (6-23) mg/dl Creatinine (0.6-1.4) mg/dl Est Cr Clr Drug Dosing ml/min Est GFR ( Amer) ml/min Est GFR (Non-Af Amer) ml/min BUN/Creatinine Ratio (10-20) Glucose (70-99(Fasting)) mg/dl POC Glucose (70-99) mg/dl Calcium (8.6-10.3) mg/dl Phosphorus (2.5-4.9) mg/dl Magnesium (1.7-2.4) mg/dl Total Bilirubin (0.2-1.0) mg/dl AST (13-39) U/L ALT (7-52) U/L Alkaline Phosphatase (34-104) U/L Troponin I High Sens (0-20) pg/ml C-Reactive Protein (0-0.5) mg/dl Total Protein (6.0-8.3) gm/dl Albumin (3.4-5.0) gm/dl Globulin (2.5-4.0) gm/dl Albumin/Globulin Ratio (0.9-2) Lipase (11-82) U/L Vitamin B12 (180-914) pg/ml Procalcitonin 0.21 (0-0.5) ng/ml TSH (0.300-4.500) uIu/ml Urine Color Dark Yellow Urine Appearance Cloudy A (Clear) Urine pH 5.0 (4.5-7.5) Ur Specific [place] > 1.045 H (1.000-1.030) Urine Protein 1+ H (Negative) Urine Glucose (UA) Negative (Negative) Urine Ketones Trace H (Negative) Urine Blood 2+ H (Negative) Urine Nitrite Negative (Negative) Urine Bilirubin Negative (Negative) Urine Urobilinogen Negative (Negative) Ur Leukocyte Esterase Negative (Negative) Urine WBC (Auto) 1-5 (0-5) /hpf Urine RBC (Auto) 5-10 H (0-4) /hpf U Hyaline Cast (Auto) 1-5 (0-5) /lpf U Epithel Cells (Auto) >30 H (0-5) /lpf Urine Bacteria (Auto) Negative (Negative) Ur Renal Epithelial Cell 0-5 (0-5) /lpf SARS-CoV-2, RNA, NAAT (NEGATIVE) 08/28/22 08/29/22 08/29/22 Range/Units Unknown 06:04 06:04 WBC 33.51 H* (4.8-10.8) K/ul RBC 4.61 L (4.70-6.10) M/uL Hgb 14.9 (14.0-18.0) g/dl Hct 42.8 (42.0-52.0) % MCV 92.8 (80.0-100.0) fL MCH 32.3 (25.0-34.0) pg MCHC 34.8 (32.0-36.0) g/dL RDW Std Deviation 44.7 (36.4-46.3) fL RDW Coeff of Zane 13.0 (11.5-14.5) % Plt Count 185 (130-400) K/uL MPV 10.6 (9.4-12.4) fL Immature Gran % (Auto) 1.1 % Neut % (Auto) 87.8 % Lymph % (Auto) 2.8 % [place] % (Auto) 8.1 % Eos % (Auto) 0.0 % Baso % (Auto) 0.2 % Neut # (Auto) 29.40 H (1.40-6.50) K/uL Lymph # (Auto) 0.95 L (1.2-3.4) K/uL [place] # (Auto) 2.73 H (0.11-0.59) K/uL Eos # (Auto) 0.00 (0-0.50) K/uL Baso # (Auto) 0.07 (0-0.2) K/uL Immature Gran # (Auto) 0.36 H (0.01-0.20) K/uL Neutrophils % (Manual) % Lymphocytes % (Manual) % Monocytes % (Manual) % Eosinophils % (Manual) % Metamyelocytes % (Man) % Myelocytes % (Man) % Neutrophils # (Manual) (1.40-6.50) K/uL Total Absolute Neuts (1.4-6.5) K/uL Lymphocytes # (Manual) (1.2-3.4) K/uL Total Abs Lymphocytes (1.2-3.4) K/uL Monocytes # (Manual) (0.11-0.59) K/uL Eosinophils # (Manual) (0-0.50) K/uL Metamyelocytes # (Man) (0-0) K/uL Myelocytes # (Manual) (0-0) K/uL VBG pH (7.36-7.41) VBG pCO2 (38-50) mmHg VBG pO2 mmHg VBG HCO3 mmol/L VBG O2 Saturation % VBG Base Excess mEq/L Sodium 139 (136-145) mmol/L Potassium 4.3 (3.5-5.1) mmol/L Chloride 106 (98-107) mmol/L Carbon Dioxide 27 (21-32) mmol/L Anion Gap 6 (3-11) BUN 27 H (6-23) mg/dl Creatinine 1.27 (0.6-1.4) mg/dl Est Cr Clr Drug Dosing 52.0 ml/min Est GFR ( Amer) 61.9 ml/min Est GFR (Non-Af Amer) 53.4 ml/min BUN/Creatinine Ratio 21.3 H (10-20) Glucose 124 H (70-99(Fasting)) mg/dl POC Glucose (70-99) mg/dl Calcium 8.5 L (8.6-10.3) mg/dl Phosphorus (2.5-4.9) mg/dl Magnesium (1.7-2.4) mg/dl Total Bilirubin 2.4 H (0.2-1.0) mg/dl AST 76 H (13-39) U/L ALT 125 H (7-52) U/L Alkaline Phosphatase 80 (34-104) U/L Troponin I High Sens 97.1 H* D (0-20) pg/ml C-Reactive Protein 22.02 H (0-0.5) mg/dl Total Protein 5.7 L (6.0-8.3) gm/dl Albumin 3.3 L (3.4-5.0) gm/dl Globulin 2.4 L (2.5-4.0) gm/dl Albumin/Globulin Ratio 1.4 (0.9-2) Lipase 304 H (11-82) U/L Vitamin B12 (180-914) pg/ml Procalcitonin (0-0.5) ng/ml TSH (0.300-4.500) uIu/ml Urine Color Urine Appearance (Clear) Urine pH (4.5-7.5) Ur Specific [place] (1.000-1.030) Urine Protein (Negative) Urine Glucose (UA) (Negative) Urine Ketones (Negative) Urine Blood (Negative) Urine Nitrite (Negative) Urine Bilirubin (Negative) Urine Urobilinogen (Negative) Ur Leukocyte Esterase (Negative) Urine WBC (Auto) (0-5) /hpf Urine RBC (Auto) (0-4) /hpf U Hyaline Cast (Auto) (0-5) /lpf U Epithel Cells (Auto) (0-5) /lpf Urine Bacteria (Auto) (Negative) Ur Renal Epithelial Cell (0-5) /lpf SARS-CoV-2, RNA, NAAT NEGATIVE (NEGATIVE) 08/29/22 08/29/22 08/29/22 Range/Units 06:04 06:04 11:27 WBC (4.8-10.8) K/ul RBC (4.70-6.10) M/uL Hgb (14.0-18.0) g/dl Hct (42.0-52.0) % MCV (80.0-100.0) fL MCH (25.0-34.0) pg MCHC (32.0-36.0) g/dL RDW Std Deviation (36.4-46.3) fL RDW Coeff of Zane (11.5-14.5) % Plt Count (130-400) K/uL MPV (9.4-12.4) fL Immature Gran % (Auto) % Neut % (Auto) % Lymph % (Auto) % [place] % (Auto) % Eos % (Auto) % Baso % (Auto) % Neut # (Auto) (1.40-6.50) K/uL Lymph # (Auto) (1.2-3.4) K/uL [place] # (Auto) (0.11-0.59) K/uL Eos # (Auto) (0-0.50) K/uL Baso # (Auto) (0-0.2) K/uL Immature Gran # (Auto) (0.01-0.20) K/uL Neutrophils % (Manual) % Lymphocytes % (Manual) % Monocytes % (Manual) % Eosinophils % (Manual) % Metamyelocytes % (Man) % Myelocytes % (Man) % Neutrophils # (Manual) (1.40-6.50) K/uL Total Absolute Neuts (1.4-6.5) K/uL Lymphocytes # (Manual) (1.2-3.4) K/uL Total Abs Lymphocytes (1.2-3.4) K/uL Monocytes # (Manual) (0.11-0.59) K/uL Eosinophils # (Manual) (0-0.50) K/uL Metamyelocytes # (Man) (0-0) K/uL Myelocytes # (Manual) (0-0) K/uL VBG pH 7.48 H (7.36-7.41) VBG pCO2 41 (38-50) mmHg VBG pO2 38 mmHg VBG HCO3 31 mmol/L VBG O2 Saturation 66.2 % VBG Base Excess 6.4 mEq/L Sodium (136-145) mmol/L Potassium (3.5-5.1) mmol/L Chloride (98-107) mmol/L Carbon Dioxide (21-32) mmol/L Anion Gap (3-11) BUN (6-23) mg/dl Creatinine (0.6-1.4) mg/dl Est Cr Clr Drug Dosing ml/min Est GFR ( Amer) ml/min Est GFR (Non-Af Amer) ml/min BUN/Creatinine Ratio (10-20) Glucose (70-99(Fasting)) mg/dl POC Glucose 132 H (70-99) mg/dl Calcium (8.6-10.3) mg/dl Phosphorus (2.5-4.9) mg/dl Magnesium (1.7-2.4) mg/dl Total Bilirubin (0.2-1.0) mg/dl AST (13-39) U/L ALT (7-52) U/L Alkaline Phosphatase (34-104) U/L Troponin I High Sens (0-20) pg/ml C-Reactive Protein (0-0.5) mg/dl Total Protein (6.0-8.3) gm/dl Albumin (3.4-5.0) gm/dl Globulin (2.5-4.0) gm/dl Albumin/Globulin Ratio (0.9-2) Lipase (11-82) U/L Vitamin B12 (180-914) pg/ml Procalcitonin 0.62 H (0-0.5) ng/ml TSH (0.300-4.500) uIu/ml Urine Color Urine Appearance (Clear) Urine pH (4.5-7.5) Ur Specific [place] (1.000-1.030) Urine Protein (Negative) Urine Glucose (UA) (Negative) Urine Ketones (Negative) Urine Blood (Negative) Urine Nitrite (Negative) Urine Bilirubin (Negative) Urine Urobilinogen (Negative) Ur Leukocyte Esterase (Negative) Urine WBC (Auto) (0-5) /hpf Urine RBC (Auto) (0-4) /hpf U Hyaline Cast (Auto) (0-5) /lpf U Epithel Cells (Auto) (0-5) /lpf Urine Bacteria (Auto) (Negative) Ur Renal Epithelial Cell (0-5) /lpf SARS-CoV-2, RNA, NAAT (NEGATIVE) 08/29/22 08/30/22 08/30/22 Range/Units 23:02 06:54 06:54 WBC 26.86 H (4.8-10.8) K/ul RBC 4.43 L (4.70-6.10) M/uL Hgb 14.5 (14.0-18.0) g/dl Hct 42.1 (42.0-52.0) % MCV 95.0 (80.0-100.0) fL MCH 32.7 (25.0-34.0) pg MCHC 34.4 (32.0-36.0) g/dL RDW Std Deviation 45.9 (36.4-46.3) fL RDW Coeff of Zane 13.0 (11.5-14.5) % Plt Count 159 (130-400) K/uL MPV 10.9 (9.4-12.4) fL Immature Gran % (Auto) 1.6 % Neut % (Auto) 86.5 % Lymph % (Auto) 4.4 % [place] % (Auto) 7.3 % Eos % (Auto) 0.0 % Baso % (Auto) 0.2 % Neut # (Auto) 23.23 H (1.40-6.50) K/uL Lymph # (Auto) 1.19 L (1.2-3.4) K/uL [place] # (Auto) 1.95 H (0.11-0.59) K/uL Eos # (Auto) 0.00 (0-0.50) K/uL Baso # (Auto) 0.05 (0-0.2) K/uL Immature Gran # (Auto) 0.44 H (0.01-0.20) K/uL Neutrophils % (Manual) % Lymphocytes % (Manual) % Monocytes % (Manual) % Eosinophils % (Manual) % Metamyelocytes % (Man) % Myelocytes % (Man) % Neutrophils # (Manual) (1.40-6.50) K/uL Total Absolute Neuts (1.4-6.5) K/uL Lymphocytes # (Manual) (1.2-3.4) K/uL Total Abs Lymphocytes (1.2-3.4) K/uL Monocytes # (Manual) (0.11-0.59) K/uL Eosinophils # (Manual) (0-0.50) K/uL Metamyelocytes # (Man) (0-0) K/uL Myelocytes # (Manual) (0-0) K/uL VBG pH (7.36-7.41) VBG pCO2 (38-50) mmHg VBG pO2 mmHg VBG HCO3 mmol/L VBG O2 Saturation % VBG Base Excess mEq/L Sodium 140 142 (136-145) mmol/L Potassium 3.9 4.4 (3.5-5.1) mmol/L Chloride 108 H 109 H (98-107) mmol/L Carbon Dioxide 27 27 (21-32) mmol/L Anion Gap 5 6 (3-11) BUN 27 H 26 H (6-23) mg/dl Creatinine 1.16 1.19 (0.6-1.4) mg/dl Est Cr Clr Drug Dosing 56.9 55.6 ml/min Est GFR ( Amer) 69.0 66.9 ml/min Est GFR (Non-Af Amer) 59.6 57.8 ml/min BUN/Creatinine Ratio 23.3 H 21.8 H (10-20) Glucose 123 H 113 H (70-99(Fasting)) mg/dl POC Glucose (70-99) mg/dl Calcium 8.0 L 8.6 (8.6-10.3) mg/dl Phosphorus (2.5-4.9) mg/dl Magnesium (1.7-2.4) mg/dl Total Bilirubin 2.1 H 1.9 H (0.2-1.0) mg/dl AST 43 H 38 (13-39) U/L ALT 77 H 68 H (7-52) U/L Alkaline Phosphatase 68 69 (34-104) U/L Troponin I High Sens (0-20) pg/ml C-Reactive Protein 26.78 H (0-0.5) mg/dl Total Protein 5.5 L 5.6 L (6.0-8.3) gm/dl Albumin 3.0 L 3.1 L (3.4-5.0) gm/dl Globulin 2.5 2.5 (2.5-4.0) gm/dl Albumin/Globulin Ratio 1.2 1.2 (0.9-2) Lipase 123 H 86 H (11-82) U/L Vitamin B12 (180-914) pg/ml Procalcitonin (0-0.5) ng/ml TSH (0.300-4.500) uIu/ml Urine Color Urine Appearance (Clear) Urine pH (4.5-7.5) Ur Specific [place] (1.000-1.030) Urine Protein (Negative) Urine Glucose (UA) (Negative) Urine Ketones (Negative) Urine Blood (Negative) Urine Nitrite (Negative) Urine Bilirubin (Negative) Urine Urobilinogen (Negative) Ur Leukocyte Esterase (Negative) Urine WBC (Auto) (0-5) /hpf Urine RBC (Auto) (0-4) /hpf U Hyaline Cast (Auto) (0-5) /lpf U Epithel Cells (Auto) (0-5) /lpf Urine Bacteria (Auto) (Negative) Ur Renal Epithelial Cell (0-5) /lpf SARS-CoV-2, RNA, NAAT (NEGATIVE) 08/30/22 08/30/22 08/31/22 Range/Units 06:54 19:30 06:10 WBC 20.69 H (4.8-10.8) K/ul RBC 4.40 L (4.70-6.10) M/uL Hgb 14.1 (14.0-18.0) g/dl Hct 42.2 (42.0-52.0) % MCV 95.9 (80.0-100.0) fL MCH 32.0 (25.0-34.0) pg MCHC 33.4 (32.0-36.0) g/dL RDW Std Deviation 45.9 (36.4-46.3) fL RDW Coeff of Zane 12.9 (11.5-14.5) % Plt Count 169 (130-400) K/uL MPV 10.8 (9.4-12.4) fL Immature Gran % (Auto) 1.2 % Neut % (Auto) 84.1 % Lymph % (Auto) 6.4 % [place] % (Auto) 7.7 % Eos % (Auto) 0.3 % Baso % (Auto) 0.3 % Neut # (Auto) 17.40 H (1.40-6.50) K/uL Lymph # (Auto) 1.33 (1.2-3.4) K/uL [place] # (Auto) 1.60 H (0.11-0.59) K/uL Eos # (Auto) 0.06 (0-0.50) K/uL Baso # (Auto) 0.06 (0-0.2) K/uL Immature Gran # (Auto) 0.24 H (0.01-0.20) K/uL Neutrophils % (Manual) % Lymphocytes % (Manual) % Monocytes % (Manual) % Eosinophils % (Manual) % Metamyelocytes % (Man) % Myelocytes % (Man) % Neutrophils # (Manual) (1.40-6.50) K/uL Total Absolute Neuts (1.4-6.5) K/uL Lymphocytes # (Manual) (1.2-3.4) K/uL Total Abs Lymphocytes (1.2-3.4) K/uL Monocytes # (Manual) (0.11-0.59) K/uL Eosinophils # (Manual) (0-0.50) K/uL Metamyelocytes # (Man) (0-0) K/uL Myelocytes # (Manual) (0-0) K/uL VBG pH (7.36-7.41) VBG pCO2 (38-50) mmHg VBG pO2 mmHg VBG HCO3 mmol/L VBG O2 Saturation % VBG Base Excess mEq/L Sodium (136-145) mmol/L Potassium (3.5-5.1) mmol/L Chloride (98-107) mmol/L Carbon Dioxide (21-32) mmol/L Anion Gap (3-11) BUN (6-23) mg/dl Creatinine (0.6-1.4) mg/dl Est Cr Clr Drug Dosing ml/min Est GFR ( Amer) ml/min Est GFR (Non-Af Amer) ml/min BUN/Creatinine Ratio (10-20) Glucose (70-99(Fasting)) mg/dl POC Glucose (70-99) mg/dl Calcium (8.6-10.3) mg/dl Phosphorus (2.5-4.9) mg/dl Magnesium (1.7-2.4) mg/dl Total Bilirubin (0.2-1.0) mg/dl AST (13-39) U/L ALT (7-52) U/L Alkaline Phosphatase (34-104) U/L Troponin I High Sens 44.2 H D (0-20) pg/ml C-Reactive Protein (0-0.5) mg/dl Total Protein (6.0-8.3) gm/dl Albumin (3.4-5.0) gm/dl Globulin (2.5-4.0) gm/dl Albumin/Globulin Ratio (0.9-2) Lipase (11-82) U/L Vitamin B12 (180-914) pg/ml Procalcitonin 0.68 H (0-0.5) ng/ml TSH (0.300-4.500) uIu/ml Urine Color Urine Appearance (Clear) Urine pH (4.5-7.5) Ur Specific [place] (1.000-1.030) Urine Protein (Negative) Urine Glucose (UA) (Negative) Urine Ketones (Negative) Urine Blood (Negative) Urine Nitrite (Negative) Urine Bilirubin (Negative) Urine Urobilinogen (Negative) Ur Leukocyte Esterase (Negative) Urine WBC (Auto) (0-5) /hpf Urine RBC (Auto) (0-4) /hpf U Hyaline Cast (Auto) (0-5) /lpf U Epithel Cells (Auto) (0-5) /lpf Urine Bacteria (Auto) (Negative) Ur Renal Epithelial Cell (0-5) /lpf SARS-CoV-2, RNA, NAAT (NEGATIVE) 08/31/22 08/31/22 08/31/22 Range/Units 06:10 06:10 06:10 WBC (4.8-10.8) K/ul RBC (4.70-6.10) M/uL Hgb (14.0-18.0) g/dl Hct (42.0-52.0) % MCV (80.0-100.0) fL MCH (25.0-34.0) pg MCHC (32.0-36.0) g/dL RDW Std Deviation (36.4-46.3) fL RDW Coeff of Zane (11.5-14.5) % Plt Count (130-400) K/uL MPV (9.4-12.4) fL Immature Gran % (Auto) % Neut % (Auto) % Lymph % (Auto) % [place] % (Auto) % Eos % (Auto) % Baso % (Auto) % Neut # (Auto) (1.40-6.50) K/uL Lymph # (Auto) (1.2-3.4) K/uL [place] # (Auto) (0.11-0.59) K/uL Eos # (Auto) (0-0.50) K/uL Baso # (Auto) (0-0.2) K/uL Immature Gran # (Auto) (0.01-0.20) K/uL Neutrophils % (Manual) % Lymphocytes % (Manual) % Monocytes % (Manual) % Eosinophils % (Manual) % Metamyelocytes % (Man) % Myelocytes % (Man) % Neutrophils # (Manual) (1.40-6.50) K/uL Total Absolute Neuts (1.4-6.5) K/uL Lymphocytes # (Manual) (1.2-3.4) K/uL Total Abs Lymphocytes (1.2-3.4) K/uL Monocytes # (Manual) (0.11-0.59) K/uL Eosinophils # (Manual) (0-0.50) K/uL Metamyelocytes # (Man) (0-0) K/uL Myelocytes # (Manual) (0-0) K/uL VBG pH (7.36-7.41) VBG pCO2 (38-50) mmHg VBG pO2 mmHg VBG HCO3 mmol/L VBG O2 Saturation % VBG Base Excess mEq/L Sodium 143 (136-145) mmol/L Potassium 4.3 (3.5-5.1) mmol/L Chloride 109 H (98-107) mmol/L Carbon Dioxide 27 (21-32) mmol/L Anion Gap 7 (3-11) BUN 27 H (6-23) mg/dl Creatinine 1.14 (0.6-1.4) mg/dl Est Cr Clr Drug Dosing 58.0 ml/min Est GFR ( Amer) 70.5 ml/min Est GFR (Non-Af Amer) 60.8 ml/min BUN/Creatinine Ratio 23.7 H (10-20) Glucose 101 H (70-99(Fasting)) mg/dl POC Glucose (70-99) mg/dl Calcium 8.4 L (8.6-10.3) mg/dl Phosphorus 2.0 L (2.5-4.9) mg/dl Magnesium 2.0 (1.7-2.4) mg/dl Total Bilirubin 1.3 H (0.2-1.0) mg/dl AST 25 (13-39) U/L ALT 48 (7-52) U/L Alkaline Phosphatase 77 (34-104) U/L Troponin I High Sens (0-20) pg/ml C-Reactive Protein (0-0.5) mg/dl Total Protein 5.4 L (6.0-8.3) gm/dl Albumin 3.0 L (3.4-5.0) gm/dl Globulin 2.4 L (2.5-4.0) gm/dl Albumin/Globulin Ratio 1.3 (0.9-2) Lipase (11-82) U/L Vitamin B12 425 (180-914) pg/ml Procalcitonin (0-0.5) ng/ml TSH 0.315 (0.300-4.500) uIu/ml Urine Color Urine Appearance (Clear) Urine pH (4.5-7.5) Ur Specific [place] (1.000-1.030) Urine Protein (Negative) Urine Glucose (UA) (Negative) Urine Ketones (Negative) Urine Blood (Negative) Urine Nitrite (Negative) Urine Bilirubin (Negative) Urine Urobilinogen (Negative) Ur Leukocyte Esterase (Negative) Urine WBC (Auto) (0-5) /hpf Urine RBC (Auto) (0-4) /hpf U Hyaline Cast (Auto) (0-5) /lpf U Epithel Cells (Auto) (0-5) /lpf Urine Bacteria (Auto) (Negative) Ur Renal Epithelial Cell (0-5) /lpf SARS-CoV-2, RNA, NAAT (NEGATIVE) 09/01/22 09/01/22 09/02/22 Range/Units 05:51 05:51 06:31 WBC 18.08 H 18.03 H (4.8-10.8) K/ul RBC 4.82 4.22 L (4.70-6.10) M/uL Hgb 15.3 13.5 L (14.0-18.0) g/dl Hct 45.1 39.4 L (42.0-52.0) % MCV 93.6 93.4 (80.0-100.0) fL MCH 31.7 32.0 (25.0-34.0) pg MCHC 33.9 34.3 (32.0-36.0) g/dL RDW Std Deviation 43.8 44.5 (36.4-46.3) fL RDW Coeff of Zane 12.7 13.0 (11.5-14.5) % Plt Count 205 222 (130-400) K/uL MPV 10.9 11.0 (9.4-12.4) fL Immature Gran % (Auto) 1.3 4.8 % Neut % (Auto) 80.9 67.0 % Lymph % (Auto) 7.0 13.6 % [place] % (Auto) 9.0 9.4 % Eos % (Auto) 1.4 4.4 % Baso % (Auto) 0.4 0.8 % Neut # (Auto) 14.62 H 12.07 H (1.40-6.50) K/uL Lymph # (Auto) 1.27 2.46 (1.2-3.4) K/uL [place] # (Auto) 1.63 H 1.70 H (0.11-0.59) K/uL Eos # (Auto) 0.25 0.80 H (0-0.50) K/uL Baso # (Auto) 0.07 0.14 (0-0.2) K/uL Immature Gran # (Auto) 0.24 H 0.86 H (0.01-0.20) K/uL Neutrophils % (Manual) % Lymphocytes % (Manual) % Monocytes % (Manual) % Eosinophils % (Manual) % Metamyelocytes % (Man) % Myelocytes % (Man) % Neutrophils # (Manual) (1.40-6.50) K/uL Total Absolute Neuts (1.4-6.5) K/uL Lymphocytes # (Manual) (1.2-3.4) K/uL Total Abs Lymphocytes (1.2-3.4) K/uL Monocytes # (Manual) (0.11-0.59) K/uL Eosinophils # (Manual) (0-0.50) K/uL Metamyelocytes # (Man) (0-0) K/uL Myelocytes # (Manual) (0-0) K/uL VBG pH (7.36-7.41) VBG pCO2 (38-50) mmHg VBG pO2 mmHg VBG HCO3 mmol/L VBG O2 Saturation % VBG Base Excess mEq/L Sodium 141 (136-145) mmol/L Potassium 3.8 (3.5-5.1) mmol/L Chloride 108 H (98-107) mmol/L Carbon Dioxide 25 (21-32) mmol/L Anion Gap 8 (3-11) BUN 21 (6-23) mg/dl Creatinine 1.10 (0.6-1.4) mg/dl Est Cr Clr Drug Dosing 61.4 ml/min Est GFR ( Amer) 73.6 ml/min Est GFR (Non-Af Amer) 63.5 ml/min BUN/Creatinine Ratio 19.1 (10-20) Glucose 109 H (70-99(Fasting)) mg/dl POC Glucose (70-99) mg/dl Calcium 8.3 L (8.6-10.3) mg/dl Phosphorus 2.2 L (2.5-4.9) mg/dl Magnesium 2.0 (1.7-2.4) mg/dl Total Bilirubin 1.0 (0.2-1.0) mg/dl AST 22 (13-39) U/L ALT 37 (7-52) U/L Alkaline Phosphatase 68 (34-104) U/L Troponin I High Sens (0-20) pg/ml C-Reactive Protein (0-0.5) mg/dl Total Protein 5.6 L (6.0-8.3) gm/dl Albumin 3.0 L (3.4-5.0) gm/dl Globulin 2.6 (2.5-4.0) gm/dl Albumin/Globulin Ratio 1.2 (0.9-2) Lipase (11-82) U/L Vitamin B12 (180-914) pg/ml Procalcitonin (0-0.5) ng/ml TSH (0.300-4.500) uIu/ml Urine Color Urine Appearance (Clear) Urine pH (4.5-7.5) Ur Specific [place] (1.000-1.030) Urine Protein (Negative) Urine Glucose (UA) (Negative) Urine Ketones (Negative) Urine Blood (Negative) Urine Nitrite (Negative) Urine Bilirubin (Negative) Urine Urobilinogen (Negative) Ur Leukocyte Esterase (Negative) Urine WBC (Auto) (0-5) /hpf Urine RBC (Auto) (0-4) /hpf U Hyaline Cast (Auto) (0-5) /lpf U Epithel Cells (Auto) (0-5) /lpf Urine Bacteria (Auto) (Negative) Ur Renal Epithelial Cell (0-5) /lpf SARS-CoV-2, RNA, NAAT (NEGATIVE) 09/02/22 09/03/22 09/03/22 Range/Units 06:31 05:50 05:50 WBC 18.68 H (4.8-10.8) K/ul RBC 4.06 L (4.70-6.10) M/uL Hgb 12.8 L (14.0-18.0) g/dl Hct 37.2 L (42.0-52.0) % MCV 91.6 (80.0-100.0) fL MCH 31.5 (25.0-34.0) pg MCHC 34.4 (32.0-36.0) g/dL RDW Std Deviation 44.4 (36.4-46.3) fL RDW Coeff of Zane 13.1 (11.5-14.5) % Plt Count 233 (130-400) K/uL MPV 11.1 (9.4-12.4) fL Immature Gran % (Auto) 6.6 % Neut % (Auto) 66.6 % Lymph % (Auto) 12.4 % [place] % (Auto) 8.9 % Eos % (Auto) 5.3 % Baso % (Auto) 0.2 % Neut # (Auto) 12.44 H (1.40-6.50) K/uL Lymph # (Auto) 2.32 (1.2-3.4) K/uL [place] # (Auto) 1.66 H (0.11-0.59) K/uL Eos # (Auto) 0.99 H (0-0.50) K/uL Baso # (Auto) 0.03 (0-0.2) K/uL Immature Gran # (Auto) 1.24 H (0.01-0.20) K/uL Neutrophils % (Manual) % Lymphocytes % (Manual) % Monocytes % (Manual) % Eosinophils % (Manual) % Metamyelocytes % (Man) % Myelocytes % (Man) % Neutrophils # (Manual) (1.40-6.50) K/uL Total Absolute Neuts (1.4-6.5) K/uL Lymphocytes # (Manual) (1.2-3.4) K/uL Total Abs Lymphocytes (1.2-3.4) K/uL Monocytes # (Manual) (0.11-0.59) K/uL Eosinophils # (Manual) (0-0.50) K/uL Metamyelocytes # (Man) (0-0) K/uL Myelocytes # (Manual) (0-0) K/uL VBG pH (7.36-7.41) VBG pCO2 (38-50) mmHg VBG pO2 mmHg VBG HCO3 mmol/L VBG O2 Saturation % VBG Base Excess mEq/L Sodium 141 141 (136-145) mmol/L Potassium 3.4 L 3.4 L (3.5-5.1) mmol/L Chloride 108 H 108 H (98-107) mmol/L Carbon Dioxide 28 27 (21-32) mmol/L Anion Gap 5 6 (3-11) BUN 26 H 25 H (6-23) mg/dl Creatinine 1.29 1.21 (0.6-1.4) mg/dl Est Cr Clr Drug Dosing 52.1 55.4 ml/min Est GFR ( Amer) 60.7 65.6 ml/min Est GFR (Non-Af Amer) 52.4 56.6 ml/min BUN/Creatinine Ratio 20.2 H 20.7 H (10-20) Glucose 109 H 109 H (70-99(Fasting)) mg/dl POC Glucose (70-99) mg/dl Calcium 8.1 L 7.9 L (8.6-10.3) mg/dl Phosphorus 2.1 L 2.6 (2.5-4.9) mg/dl Magnesium 2.0 2.0 (1.7-2.4) mg/dl Total Bilirubin 0.7 0.6 (0.2-1.0) mg/dl AST 24 45 H (13-39) U/L ALT 31 41 (7-52) U/L Alkaline Phosphatase 62 57 (34-104) U/L Troponin I High Sens (0-20) pg/ml C-Reactive Protein (0-0.5) mg/dl Total Protein 5.3 L 5.0 L (6.0-8.3) gm/dl Albumin 2.7 L 2.6 L (3.4-5.0) gm/dl Globulin 2.6 2.4 L (2.5-4.0) gm/dl Albumin/Globulin Ratio 1.0 1.1 (0.9-2) Lipase (11-82) U/L Vitamin B12 (180-914) pg/ml Procalcitonin (0-0.5) ng/ml TSH (0.300-4.500) uIu/ml Urine Color Urine Appearance (Clear) Urine pH (4.5-7.5) Ur Specific [place] (1.000-1.030) Urine Protein (Negative) Urine Glucose (UA) (Negative) Urine Ketones (Negative) Urine Blood (Negative) Urine Nitrite (Negative) Urine Bilirubin (Negative) Urine Urobilinogen (Negative) Ur Leukocyte Esterase (Negative) Urine WBC (Auto) (0-5) /hpf Urine RBC (Auto) (0-4) /hpf U Hyaline Cast (Auto) (0-5) /lpf U Epithel Cells (Auto) (0-5) /lpf Urine Bacteria (Auto) (Negative) Ur Renal Epithelial Cell (0-5) /lpf SARS-CoV-2, RNA, NAAT (NEGATIVE) 09/04/22 09/04/22 Range/Units 06:51 06:51 WBC 18.82 H (4.8-10.8) K/ul RBC 4.17 L (4.70-6.10) M/uL Hgb 13.4 L (14.0-18.0) g/dl Hct 39.0 L (42.0-52.0) % MCV 93.5 (80.0-100.0) fL MCH 32.1 (25.0-34.0) pg MCHC 34.4 (32.0-36.0) g/dL RDW Std Deviation 45.2 (36.4-46.3) fL RDW Coeff of Zane 13.2 (11.5-14.5) % Plt Count 286 (130-400) K/uL MPV 11.0 (9.4-12.4) fL Immature Gran % (Auto) % Neut % (Auto) % Lymph % (Auto) % [place] % (Auto) % Eos % (Auto) % Baso % (Auto) % Neut # (Auto) (1.40-6.50) K/uL Lymph # (Auto) (1.2-3.4) K/uL [place] # (Auto) (0.11-0.59) K/uL Eos # (Auto) (0-0.50) K/uL Baso # (Auto) (0-0.2) K/uL Immature Gran # (Auto) (0.01-0.20) K/uL Neutrophils % (Manual) 74 % Lymphocytes % (Manual) 8 % Monocytes % (Manual) 6 % Eosinophils % (Manual) 6 % Metamyelocytes % (Man) 4 % Myelocytes % (Man) 2 % Neutrophils # (Manual) 13.93 H (1.40-6.50) K/uL Total Absolute Neuts 13.93 H (1.4-6.5) K/uL Lymphocytes # (Manual) 1.51 (1.2-3.4) K/uL Total Abs Lymphocytes 1.51 (1.2-3.4) K/uL Monocytes # (Manual) 1.13 H (0.11-0.59) K/uL Eosinophils # (Manual) 1.13 H (0-0.50) K/uL Metamyelocytes # (Man) 0.75 H (0-0) K/uL Myelocytes # (Manual) 0.38 H (0-0) K/uL VBG pH (7.36-7.41) VBG pCO2 (38-50) mmHg VBG pO2 mmHg VBG HCO3 mmol/L VBG O2 Saturation % VBG Base Excess mEq/L Sodium 139 (136-145) mmol/L Potassium 3.6 (3.5-5.1) mmol/L Chloride 105 (98-107) mmol/L Carbon Dioxide 28 (21-32) mmol/L Anion Gap 6 (3-11) BUN 21 (6-23) mg/dl Creatinine 1.20 (0.6-1.4) mg/dl Est Cr Clr Drug Dosing 55.8 ml/min Est GFR ( Amer) 66.3 ml/min Est GFR (Non-Af Amer) 57.2 ml/min BUN/Creatinine Ratio 17.5 (10-20) Glucose 115 H (70-99(Fasting)) mg/dl POC Glucose (70-99) mg/dl Calcium 8.5 L (8.6-10.3) mg/dl Phosphorus (2.5-4.9) mg/dl Magnesium 2.1 (1.7-2.4) mg/dl Total Bilirubin 0.6 (0.2-1.0) mg/dl AST 30 (13-39) U/L ALT 40 (7-52) U/L Alkaline Phosphatase 62 (34-104) U/L Troponin I High Sens (0-20) pg/ml C-Reactive Protein (0-0.5) mg/dl Total Protein 5.9 L (6.0-8.3) gm/dl Albumin 3.0 L (3.4-5.0) gm/dl Globulin 2.9 (2.5-4.0) gm/dl Albumin/Globulin Ratio 1.0 (0.9-2) Lipase (11-82) U/L Vitamin B12 (180-914) pg/ml Procalcitonin (0-0.5) ng/ml TSH (0.300-4.500) uIu/ml Urine Color Urine Appearance (Clear) Urine pH (4.5-7.5) Ur Specific [place] (1.000-1.030) Urine Protein (Negative) Urine Glucose (UA) (Negative) Urine Ketones (Negative) Urine Blood (Negative) Urine Nitrite (Negative) Urine Bilirubin (Negative) Urine Urobilinogen (Negative) Ur Leukocyte Esterase (Negative) Urine WBC (Auto) (0-5) /hpf Urine RBC (Auto) (0-4) /hpf U Hyaline Cast (Auto) (0-5) /lpf U Epithel Cells (Auto) (0-5) /lpf Urine Bacteria (Auto) (Negative) Ur Renal Epithelial Cell (0-5) /lpf SARS-CoV-2, RNA, NAAT (NEGATIVE)
[2022-09-04] MEDS ORDERED: OPTIRAY 320 100ml IV ONE (14:44)
--- NOTE | 2022-09-04 17:37 | CT Scan Report ---
CT OF THE ABDOMEN AND PELVIS WITH CONTRAST CLINICAL HISTORY: to R/O pancreatic abscess COMPARISON STUDY: CT of the abdomen and pelvis August 28, 2022. MRCP August 29, 2022. TECHNIQUE: Following IV administration of 84 mL of Optiray, axial images of the abdomen and pelvis we re obtained from the lung bases to the proximal femurs. Images were reviewed in the axial, sagittal, and coronal planes. IV contrast was administered without complication. Automated exposure control wa s utilized for the study. A dose lowering technique was utilized adhering to the principles of ALARA . CT DOSE: 1124.31 mGy.cm FINDINGS: Small left and trace right pleural effusions are present. Subpleural opacity favors atelect asis. No pneumatosis, free air or portal venous gas is present. A common bile duct stent is in place. There is no biliary ductal dilatation. Hyperdense material within the gallbladder may be related to recent procedure. The gallbladder is not distended. No hepatic lesions. Spleen and left kidney are un remarkable. There is a 2 mm right renal calculus. There is no hydronephrosis. Trace gas within the bl adder is noted. There is a small amount of ascites. Anasarca is noted. Moderate peripancreatic fluid and stranding is noted. Portions of the body and neck demonstrate decreased enhancement suggestive of pancreatic necrosis. The findings have mildly progressed since prior CT. There has been interval dev elopment of a rim-enhancing peripancreatic fluid collection between the pancreas and greater curvatur e of the stomach which measures 7.7 x 6.7 cm. There is wall thickening of the adjacent portion of the stomach. No additional fluid collections are present. Major vasculature is patent. A 2.7 cm enhancin g focus within the right lateral aspect prostate on axial image 241 is noted. This is nonspecific. Th ere is no evidence for a bowel obstruction. The appendix is not visualized. There is moderate plaque of the abdominal aorta. IMPRESSION: 1. Progression of findings consistent with acute pancreatitis since CT of August 28, 2022. Diminished en hancement of portions of the pancreatic body and neck suggestive of pancreatic necrosis. Interval dev elopment of a 7.7 x 6.7 cm rim-enhancing peripancreatic fluid collection located between the pancreas and greater curvature of the stomach with associated wall thickening of the stomach. This is suggest kirti of an acute peripancreatic fluid collection. Sterility cannot be assessed by CT however this cont ains no gas. 2. No bowel obstruction. No bowel wall thickening. 3. Small left and trace right pleural effusions. 4. 2.7 cm enhancing focus within the right lateral aspect of the prostate. This is nonspecific and co rrelation with serum PSA level is recommended. ACT 112: Negative or not required by law. Electronically signed by: Mikael Mehta M.D. 09/04/2022 5:35 PM
--- NOTE | 2022-09-04 17:44 | Hospitalist Progress Note ---
Date of Service September 04, 2022 Assessment & Plan (1) Acute pancreatitis: Plan: Presented with severe, ?necrotizing gallstone pancreatitis and 2 cm cyst in pancreatic head With fever, tachycardia,significant leukocytosis, N/V, sepsis, and WILMER on admission Procal elevated Started on Cefepime and Flagyl Tertiary care contacted initially and declined to accept as not felt to be necessary Found to have choledocholithiasis on MRCP and ERCP 08/30 with 3 cm hiatal hernia, esophagitis of the lower third of the esophagus in addition to cholelithiasis and choledocholithiasis. The patient ultimately underwent ERCP with gallstone extraction, biliary sphincterotomy and biliary stent placement. LFTs now completely normal, leukocytosis much improved from previous but remains consistently at 18 for the last 4 days Delirium is now much improved but continues to wax and wane occasionally Developed hypoxia on pulmonary edema on 09/01-IV fluids stopped and was given Lasix-hypoxia now resolved Repeat CT abdomen/pelvis performed on 09/04 does now show a new 7 x 6 cm peripanc reatic fluid collection and somewhat progressive necrotizing pancreatitis Clinically, the patient appears very well. He is tolerating a low-fat diet, moving his bowels, denies any abdominal pains or nausea. Discussed CT results with on-call GI on the evening of 09/04-plan to discuss with advanced endoscopist, Dr. Mireille Monsalve, on the morning of 09/05 to see if needs drainage of peripancreatic cyst -appreciate GI consult: needs abx x 2 weeks, avoid NSAIDs x 1 week (home ASA being held), Protonix x 3 months, repeat ERCP for stent removal 6-8 weeks, perform EUS in 3 mo for pancreatic cyst and EGD 3 mo for f/u esophagitis -appreciate Surgery consult-plan to delay cholecystectomy until more medically stable, as an outpatient in 3 to 4 weeks prior to stent removal -continue pain control as needed, antiemetics as needed -follow CBC, CMP, Mag, Phos and replace as needed - continue p.o. Cipro and Flagyl and finish out 14-day course (2) Sepsis: Plan: as above, 2/2 pancreatitis, resolved BCxs remain NGTD With persistent leukocytosis secondary to pancreatitis with peripancreatic fluid collection Follow CBC continue abx and tx of pancreatitis as above (3) Acute metabolic encephalopathy: Plan: Patient is with delirium 2/2 pancreatitis and cholangitis, sepsis MRI and CT head were negative. Waxing and waning for several days but finally significantly improved as above on 09/02 after finally getting a solid night's rest, also received high-dose IV thiamine x2 days Was having hallucinations at times, confusion, restlessness, pulling at IVs etc., requiring 1:1 and required IM Zyprexa overnight on 08/31 Had been doing much better, but did have some agitation overnight on 09/03, but ultimately did not require any antipsychotics Continue supportive care, encourage sleep/wake cycles, and ambulation with PT/OT Continue Zyprexa 5 mg p.o. at bedtime as needed for agitation-has not received TSH, B12 normal Vitamin B1 level drawn and pending-continue to give empiric thiamine 100 Mg p.o. once daily Continue to treat infection with antibiotics (4) Acute respiratory failure with hypoxia: Plan: Developed hypoxia requiring 4 LNC O2 on the night of 08/31 Chest x-ray with pulmonary edema and evidence of volume overload He did receive copious IV fluids for his severe pancreatitis -He was given Lasix 40 Mg IV x1 on the morning of 09/01 -Now weaned off oxygen, respiratory status much improved, cough now improved with using incentive spirometry -Monitor for worsening again and give Lasix if needed -Continue incentive spirometry (5) Cholelithiasis with choledocholithiasis: Plan: as above Needs cholecystectomy in 3 to 4 weeks (6) Esophagitis: Plan: as above continue PPI p.o. twice daily Remain on PPI po x 3 mo, repeat EGD in 3 mo (7) WILMER (acute kidney injury): Plan: 2/2 hypovolemia/prerenal from acute pancreatitis and N/V -Resolved now after receiving IVF, holding lisinopril -follow BMP -Iniguez catheter out and voiding (8) Elevated troponin I level: Plan: trop 57/90/[address]/TW changes similar to previous likely demand ischemia. No arrhythmias on telemetry (9) Pancreatic cyst: Plan: as above, EUS in 3 mo after pancreatitis settles down (10) HTN (hypertension), benign: Plan: BPs normal Continue lisinopril (11) Rash: Plan: Rash on back only, suspect heat rash but could have been reaction to cefepime which is since been stopped Hydrocortisone to the rash Plan DVT proph-heparin SQ Dispo-continued stay PCU, PT/OT consults recommending inpatient rehab initially, but now strength is much improved-we will have PT reevaluate. Not medically stable yet for discharge due to ongoing leukocytosis and large peripancreatic fluid collection Care discussed with at the bedside again on 09/04 Admission and Anticipated Discharge Date Admission Date: August 28, 2022 Subjective Patient had increased agitation and confusion again overnight and did not sleep much. He also refused his oral evening medications including his antibiotics. He then slept for a few hours this morning as per his and since then has been much more mentally clear. He denies any abdominal pains, no nausea. He is tolerating a low-fat diet. He is moving his bowels and voiding. He is ambulating frequently around the halls. Telemetry with normal sinus rhythm PACs, PVCs, rates in 60s to 70s Physical Exam Constitutional: WD/WN, vitals as above Respiratory: normal respiratory effort; no cough Auscultation: + crackles (Mild that clear with deep breaths); no rhonchi and no wheezes Cardiovascular: RRR, no murmur, no edema Gastrointestinal (Abdomen): normal bowel sounds, soft, nontender, no hepatosplenomegaly Skin: + rash (Entire back with macular erythematous rash, improved) Neurologic: awake; no focal motor deficits and not confused Psychiatric: Orientation: alert, oriented to person, oriented to place and cooperative; + not oriented to time Results & Data Results & Data Vital Signs (Past 12 Hours) Vital Signs Temp Pulse Pulse Resp BP Pulse Ox O2 Del Method 09/04/22 15:49 36.4 C L 59 L 16 122/81 98 Room Air 09/04/22 11:44 36.5 C 59 L 18 136/75 97 Room Air 09/04/22 08:00 Room Air 09/04/22 07:00 64 09/04/22 07:21 36.7 C 63 20 139/79 96 Room Air Laboratory Results CBC, CMP, blood cultures reviewed Diagnostic Findings Abdomen/Pelvis CT 09/04/22 12:27 CT OF THE ABDOMEN AND PELVIS WITH CONTRAST CLINICAL HISTORY: to R/O pancreatic abscess COMPARISON STUDY: CT of the abdomen and pelvis August 28, 2022. MRCP August 29, 2022. TECHNIQUE: Following IV administration of 84 mL of Optiray, axial images of the abdomen and pelvis were obtained from the lung bases to the proximal femurs. Images were reviewed in the axial, sagittal, and coronal planes. IV contrast was administered without complication. Automated exposure control was utilized for the study. A dose lowering technique was utilized adhering to the principles of ALARA. CT DOSE: 1124.31 mGy.cm FINDINGS: Small left and trace right pleural effusions are present. Subpleural opacity favors atelectasis. No pneumatosis, free air or portal venous gas is present. A common bile duct stent is in place. There is no biliary ductal dilatation. Hyperdense material within the gallbladder may be related to recent procedure. The gallbladder is not distended. No hepatic lesions. Spleen and left kidney are unremarkable. There is a 2 mm right renal calculus. There is no hydronephrosis. Trace gas within the bladder is noted. There is a small amount of ascites. Anasarca is noted. Moderate peripancreatic fluid and stranding is noted. Portions of the body and neck demonstrate decreased enhancement suggestive of pancreatic necrosis. The findings have mildly progressed since prior CT. There has been interval development of a rim-enhancing peripancreatic fluid collection between the pancreas and greater curvature of the stomach which measures 7.7 x 6.7 cm. There is wall thickening of the adjacent portion of the stomach. No additional fluid collections are present. Major vasculature is patent. A 2.7 cm enhancing focus within the right lateral aspect prostate on axial image 241 is noted. This is nonspecific. There is no evidence for a bowel obstruction. The appendix is not visualized. There is moderate plaque of the abdominal aorta. IMPRESSION: 1. Progression of findings consistent with acute pancreatitis since CT of August 28, 2022. Diminished enhancement of portions of the pancreatic body and neck suggestive of pancreatic necrosis. Interval development of a 7.7 x 6.7 cm rim- enhancing peripancreatic fluid collection located between the pancreas and greater curvature of the stomach with associated wall thickening of the stomach. This is suggestive of an acute peripancreatic fluid collection. Sterility cannot be assessed by CT however this contains no gas. 2. No bowel obstruction. No bowel wall thickening. 3. Small left and trace right pleural effusions. 4. 2.7 cm enhancing focus within the right lateral aspect of the prostate. This is nonspecific and correlation with serum PSA level is recommended. ACT 112: Negative or not required by law. Electronically signed by: Mikael Mehta M.D. 09/04/2022 5:35 PM PG Care Time/CCT Total # of Minutes Spent Total Time Spent with Patient: Total time spent is greater than 50% in coordination of care (as documented) at patient's floor/unit and/or counseling patient: Coding Level of Care Code 45675 SUB INP/OBS CARE 3/50MIN Diagnoses Acute pancreatitis K85.90 Acute pancreatitis complication: unspecified Pancreatitis type: unspecified pancreatitis type Sepsis A41.9 Acute metabolic encephalopathy G93.41 Acute respiratory failure with hypoxia J96.01 Cholelithiasis with choledocholithiasis K80.70 Esophagitis K20.90 WILMER (acute kidney injury) N17.9 Elevated troponin I level R77.8 Pancreatic cyst K86.2 HTN (hypertension), benign I10 Rash R21 (1) Acute pancreatitis Acute pancreatitis complication: unspecified Pancreatitis type: unspecified pancreatitis type Qualified Code(s): K85.90 - Acute pancreatitis without necrosis or infection, unspecified
[2022-09-04] MEDS: MELATONIN 3 MG TAB PO SCH (20:54)
--- NOTE | 2022-09-05 07:47 | Surgery Progress Note ---
Date of Service September 05, 2022 Assessment & Plan (1) Acute pancreatitis: Plan: 09/04/2022 12:23PM F/U pancreatitis, cholelithiasis pt is doing better, no fever, no abdominal pain, tolerated diet, but WBC 18,000 based on high WBC, I recommend to do CT scan to R/O pancreatic abscess, D/W benefits, risks and alternatives of the CT scan with pt and his , they agreed with CT scan, I answered all questions, repeat lab sin morning will F/U, 09/05/2022 7:[address] Diaz pt feels better, tolerated diet, I reviewed CT scan finding with pt and his yesterday. WBC pending. depend on WBc , pancreatic fluid need drainage or not. will F/U. (2) Sepsis: (3) Cholelithiasis with choledocholithiasis: Plan: will do cholecystectomy out patient setting. (4) Acute metabolic encephalopathy: Plan 77 year-old male presented to ED with 1 day history of nausea, vomiting x 7 and upper abdominal pain with elevated leukocytosis of 22k, t. bili of 2.4, and lipase of [address] scan of abd/pelvis showing acute pancreatitis with decreased enhancement of pancreatic body suspicious for developing necrotizing pancreatitis. No peripancreatic fluid collections or focal peripancreatic necrosis. POD # 2 s/p EUS + ERCP found to have choledocholithiasis s/p stent placement x 1 afebrile leukocytosis improved to 18K still with confusion, hallucinations, agitation requiring 1:1, waxes and wanes no abdominal pain , examination without abdominal pain t. bili down and lfts normalized, lipase down to 80 Plan: Given patients severe pancreatitis and encephalopathy, would recommend delaying cholecystectomy until outpatient in about 3-4 weeks. He does have cholelithiasis and would benefit from cholecystectomy to prevent further biliary obstruction however would like further clinical improvement before putting patient under another general anesthetic and surgical procedure. Likely has significant inflammation from the acute pancreatitis which could make laparoscopic procedure more difficult and increase risks of surgery. MRCP showing no signs of acute cholecystitis and the gallbladder filled with contrast during ERCP with patent cystic duct. Continue IV antibiotics, total course of abx therapy for 2 weeks per GI recommendations Clear liquids and advance as tolerated to low fat diet continue current medical management [facility] covering over weekend Dr. diaz has seen and examined patient, agrees with above. Admission and Anticipated Discharge Date Admission Date: August 28, 2022 Supervising Physician Co-Signing Physician Notes I have seen the patient with the PA and agree with continuation of the above stated plan as initiated by the original consulting surgeon. Subjective Patient had increased agitation and confusion again overnight and did not sleep much. He also refused his oral evening medications including his antibiotics. He then slept for a few hours this morning as per his and since then has been much more mentally clear. He denies any abdominal pains, no nausea. He is tolerating a low-fat diet. He is moving his bowels and voiding. He is ambulating frequently around the halls. Telemetry with normal sinus rhythm PACs, PVCs, rates in 60s to 70s 09/05/2022 7:36 AM, Dr. Diaz pt id doing much better, no abdominal pain, tolerated diet no nausea, no vomiting, no fever. Physical Exam Constitutional: WD/WN, vitals as above Eyes: PERRL, conjunctivae normal, anicteric sclerae Neck: trachea midline, no thyromegaly Respiratory: normal respiratory effort, lungs clear to auscultation Gastrointestinal (Abdomen): soft, NT, ND, BS +, Neurologic: patellar DTR's 2+ bilat, sensation intact Psychiatric: A+Ox3, euthymic affect Results & Data Vital Signs (Past 12 Hours) Vital Signs Temp Pulse Resp BP Pulse Ox O2 Del Method 09/05/22 07:42 36.8 C 59 L 18 115/69 96 Room Air 09/05/22 03:52 36.9 C 72 18 137/74 93 Room Air 09/04/22 23:07 37 C 59 L 18 119/70 96 Room Air Diagnostic Findings CT DOSE: 1124.31 mGy.cm FINDINGS: Small left and trace right pleural effusions are present. Subpleural opacity favors atelectasis. No pneumatosis, free air or portal venous gas is present. A common bile duct stent is in place. There is no biliary ductal dilatation. Hyperdense material within the gallbladder may be related to recent procedure. The gallbladder is not distended. No hepatic lesions. Spleen and left kidney are unremarkable. There is a 2 mm right renal calculus. There is no hydronephrosis. Trace gas within the bladder is noted. There is a small amount of ascites. Anasarca is noted. Moderate peripancreatic fluid and stranding is noted. Portions of the body and neck demonstrate decreased enhancement suggestive of pancreatic necrosis. The findings have mildly progressed since prior CT. There has been interval development of a rim-enhancing peripancreatic fluid collection between the pancreas and greater curvature of the stomach which measures 7.7 x 6.7 cm. There is wall thickening of the adjacent portion of the stomach. No additional fluid collections are present. Major vasculature is patent. A 2.7 cm enhancing focus within the right lateral aspect prostate on axial image 241 is noted. This is nonspecific. There is no evidence for a bowel obstruction. The appendix is not visualized. There is moderate plaque of the abdominal aorta. IMPRESSION: 1. Progression of findings consistent with acute pancreatitis since CT of August 28, 2022. Diminished enhancement of portions of the pancreatic body and neck suggestive of pancreatic necrosis. Interval development of a 7.7 x 6.7 cm rim- enhancing peripancreatic fluid collection located between the pancreas and greater curvature of the stomach with associated wall thickening of the stomach. This is suggestive of an acute peripancreatic fluid collection. Sterility cannot be assessed by CT however this contains no gas. 2. No bowel obstruction. No bowel wall thickening. 3. Small left and trace right pleural effusions. 4. 2.7 cm enhancing focus within the right lateral aspect of the prostate. This is nonspecific and correlation with serum PSA level is recommended. ACT 112: Negative or not required by law.
[2022-09-05 08:13] LABS: ALC (manual) 1.72 K/uL (1.2-3.4); ANC (manual) 13.38 K/uL (1.4-6.5); Lymphocytes # (manual) 1.71 K/uL (1.2-3.4); Lymphocytes % (manual) 10 %; Metamyelocytes # (manual) 0.51 K/uL (0-0); Metamyelocytes % (manual) 3 %; Monocytes % (manual) 7 %; Myelocytes # (manual) 0.51 K/uL (0-0); Myelocytes % (manual) 3 %; Neutrophils # (manual) 13.38 K/uL (1.40-6.50); Neutrophils % (manual) 78 %; RBC Morphology Unremarkable
[2022-09-05 08:14] LABS: Hematocrit (blood only) 38.4 % (42.0-52.0); Hemoglobin 13.3 g/dl (14.0-18.0); Mean Corpuscular Hemoglobin 31.7 pg (25.0-34.0); Mean Corpuscular Hgb Conc 34.6 g/dL (32.0-36.0); Mean Corpuscular Volume 91.6 fL (80.0-100.0); Mean Platelet Volume 10.7 fL (9.4-12.4); Platelet Count 325 K/uL (130-400); RDW Coefficient of Variation 13.1 % (11.5-14.5); RDW Standard Deviation 44.3 fL (36.4-46.3); Red Blood Count 4.19 M/uL (4.70-6.10); White Blood Count 17.15 K/ul (4.8-10.8)
[2022-09-05 08:29] LABS: Albumin Globulin Ratio 1.1 (0.9-2); Albumin Level 2.9 gm/dl (3.4-5.0); BUN Creatinine Ratio 14.5 (10-20); Bilirubin,Total 0.5 mg/dl (0.2-1.0); Calcium 8.4 mg/dl (8.6-10.3); Creatinine Clr Calc Pharmacy 57.6 ml/min; Est GFR (African American) 68.3 ml/min; Est GFR (Non-African American) 58.9 ml/min; Globulin 2.6 gm/dl (2.5-4.0); Magnesium 2.1 mg/dl (1.7-2.4); Total Protein 5.5 gm/dl (6.0-8.3)
[2022-09-05] MEDS: HEPARIN SOD 5,000 UNIT/0.5 ML VIAL SQ SCH (08:51)
[2022-09-05] MEDS: lisinopril 5 MG TAB PO SCH (08:52)
[2022-09-05] MEDS: CIPROFLOXACIN 500 MG TAB PO SCH ×2 (08:52→20:50)
[2022-09-05] MEDS: PANTOprazole 40 MG TAB PO SCH ×2 (08:52→20:50)
[2022-09-05] MEDS: THIAMINE HCL 100 MG TAB PO SCH (08:53)
[2022-09-05] MEDS: HYDROCORTISONE 1% CRM 30 GM TUBE EXT SCH ×2 (08:53→20:50)
[2022-09-05] MEDS: metroNIDAZOLE 500 MG TAB PO SCH ×3 (08:53→20:50)
--- NOTE | 2022-09-05 18:59 | Communication Note ---
Date of Service: September 05, 2022 We were asked by Dr. Zamora to review CT images from today and provide opinion on 7cm cyst. Images reviewed by Dr. Barrios: cyst is not mature. Pt seen by myself. He is awake, alert, hemodynamically stable, he has leukocytosis but slowly improving each day. He tells me that he has not had any abdominal pain. ON exam, abd is soft and there is no abdominal distention or tenderness. Would continue antibiotics, follow clinically. Will plan for EUS in 3-6 weeks for draining of the cyst. Our office will call him to arrange. He has an ERCP planned for 6 -8 wks as well for stent removal. Please recall if questions.
[2022-09-05] MEDS: MELATONIN 3 MG TAB PO SCH (20:49)
[2022-09-06 07:49] LABS: Hematocrit (blood only) 35.9 % (42.0-52.0); Hemoglobin 12.3 g/dl (14.0-18.0); Mean Corpuscular Hemoglobin 31.6 pg (25.0-34.0); Mean Corpuscular Hgb Conc 34.3 g/dL (32.0-36.0); Mean Corpuscular Volume 92.3 fL (80.0-100.0); Mean Platelet Volume 10.6 fL (9.4-12.4); Platelet Count 304 K/uL (130-400); RDW Coefficient of Variation 12.8 % (11.5-14.5); Red Blood Count 3.89 M/uL (4.70-6.10); White Blood Count 15.43 K/ul (4.8-10.8)
[2022-09-06 07:51] LABS: BUN Creatinine Ratio 11.8 (10-20); Calcium 8.3 mg/dl (8.6-10.3); Creatinine Clr Calc Pharmacy 52.9 ml/min; Est GFR (African American) 61.9 ml/min; Est GFR (Non-African American) 53.4 ml/min
[2022-09-06 07:56] LABS: Polychromasia 1+
[2022-09-06 08:04] LABS: ANC (manual) 11.42 K/uL (1.4-6.5); Basophils # (manual) 0.15 K/uL (0-0.2); Eosinophils # (manual) 0.31 K/uL (0-0.50); Metamyelocytes # (manual) 0.31 K/uL (0-0); Monocytes # (manual) 1.23 K/uL (0.11-0.59); Myelocytes # (manual) 0.46 K/uL (0-0); Neutrophils # (manual) 11.42 K/uL (1.40-6.50); Neutrophils % (manual) 74 %
[2022-09-06] MEDS: THIAMINE HCL 100 MG TAB PO SCH (08:05)
[2022-09-06] MEDS: metroNIDAZOLE 500 MG TAB PO SCH ×3 (08:05→20:25)
[2022-09-06] MEDS: lisinopril 5 MG TAB PO SCH (08:05)
[2022-09-06] MEDS: PANTOprazole 40 MG TAB PO SCH ×2 (08:05→20:25)
[2022-09-06] MEDS: CIPROFLOXACIN 500 MG TAB PO SCH ×2 (08:05→20:25)
[2022-09-06] MEDS: HYDROCORTISONE 1% CRM 30 GM TUBE EXT SCH ×2 (08:06→20:25)
--- NOTE | 2022-09-06 11:15 | Hospitalist Progress Note ---
Date of Service September 05, 2022 Assessment & Plan (1) Acute pancreatitis: Plan: SEVERE gallstone pancreatitis with possible necrotizing process of pancreas as well. Peak lipase 1057. Treated with cefepime/flagyl early in the stay. Treated in customary fashion with bowel rest/IVF. Found to have choledocholithiasis on MRCP and ERCP 08/30 with 3 cm hiatal hernia, esophagitis of the lower third of the esophagus in addition to cholelithiasis and choledocholithiasis. CBD stent placed by Dr Genao, [facility]. Due to persistent leukocytosis (WBC count did peak at 30) repeat CT a/p obtained 09/04/22 showing peripancreatic fluid collection (see below). Despite the new collection he is clinically well, tolerating diet, no abdominal symptoms, no fever, etc. [facility] saw patient again today. At this time the collection is not organized enough to drain. Thus, continue cipro/flagyl x 7 more days and plan for EUS in 3-6 weeks for draining of the cyst. [facility] GI office will arrange this. Will need repeat ERCP in 6 -[address] removal[address] Hyman has seen from [facility] gen surg - will plan elective lap antonio in 3-4 weeks post-discharge. Protonix x 3 months, repeat ERCP for stent removal 6-8 weeks, perform EUS in 3 mo for pancreatic cyst and EGD 3 mo for f/u esophagitis (2) Peripancreatic fluid collection: Plan: 7x6cm on CT abd/pelvis 09/04/22 [facility] has re-evaluated patient - collection is not organized enough to drain, and the patient is clinically very stable and improving Thus, defer on drainage at this time EUS in 3-6 weeks for possible drainage then (3) Cholelithiasis with choledocholithiasis: Plan: s/p ERCP 08/30/22 - Dr Genao - s/p removal of CBD stones with CBD stent placement Will need stent retrieval in 6-8 weeks Needs cholecystectomy in 3 to 4 weeks (4) Sepsis: Plan: 2nd acute pancreatitis - resolved Blood cx's negative Did not have purulent fluid in bile duct during ERCP but [id number] will complete 14 days of antibiotics Cont cipro/flagyl Repeat CBC am (5) Acute metabolic encephalopathy: Plan: 2nd to #1, hospital psychosis, etc remains on zyprexa HS prn only vit B1 level pending remains on empiric thiamine (6) Acute respiratory failure with hypoxia: Plan: Developed hypoxia requiring 4 LNC O2 on the night of 08/31 Chest x-ray with pulmonary edema and evidence of volume overload s/p lasix with resolution of symptoms stable since then in room air (7) Esophagitis: Plan: as seen on EGD 08/[address] Genao continue PPI p.o. twice daily x 3 months with repeat EGD in 3 months (8) WILMER (acute kidney injury): Plan: resolved peak Cr 1.4 now 1.1 2nd to #1 (9) Elevated troponin I level: Plan: HS troponin 57/90/44 2nd to myocardial demand ischemia in setting of #1 above no evidence of ACS (10) Pancreatic cyst: Plan: 2cm pancreatic head repeat EUS in 3 months (11) HTN (hypertension), benign: Plan: Controlled Continue lisinopril (12) Prostate asymmetry: Plan: CT a/p on 09/04 with 2.7 cm enhancing focus within the right lateral aspect of the prostate Informally I reviewed this CT finding with on-call urology This may represent a prostatic abscess If so he is not symptomatic from such NO LUTS NO rectal or perineal pain PSA is elevated - certainly prostatic inflammation from this 2.7cm focus could be causing the elevation cipro should cover the prostate well at minimum will need [facility] Urology f/u shortly after discharge for recheck would advise keeping on cipro beyond 14 days (being used for pancreas/biliary tree) to cover the prostate Plan DVT proph- heparin SC Pt's updated at the bedside today care d/w [facility] - appreciate their assistance care d/w [facility] Urology repeat labs am Admission and Anticipated Discharge Date Admission Date: August 28, 2022 Subjective tele overnight wnl patient sitting in chair at bedside patient denies abd pain, nausea, emesis, diarrhea, blood per rectum he is tolerating regular diet without any pain denies dysuria, voiding difficulty, perineal pain, scrotal pain, rectal pain, or any other LUTS Review of Systems Review of Systems: gen - no fevers or chills; good appetite cv - no chest pain; mild edema present pulm - no dyspnea or cough psych - less confusion, Physical Exam Physical Exam: gen - NAD, looks good, nontoxic eyes - nonicteric mouth - MMM neck - no JVD heart - RRR, s1 s2 lungs - decreased BS bases, CTA b/l otherwise abd - soft NT ND BS+; no HSM ext - <1+ edema b/l, pulses 2+ b/l psych - a/o x 3 Results & Data Results & Data Vital Signs (Past 12 Hours) Vital Signs Temp Pulse Resp BP BP Pulse Ox O2 Del Method 09/05/22 15:00 36.8 C 63 18 130/73 97 Room Air Laboratory Results Laboratory Results - last 48 hr 09/05/22 09/05/22 09/05/22 07:20 07:20 07:20 WBC 17.15 H RBC 4.19 L Hgb 13.3 L Hct 38.4 L MCV 91.6 MCH 31.7 MCHC 34.6 RDW Std Deviation 44.3 RDW Coeff of Zane 13.1 Plt Count 325 MPV 10.7 Neutrophils % (Manual) 78 Lymphocytes % (Manual) 10 Monocytes % (Manual) 7 Metamyelocytes % (Man) 3 Myelocytes % (Man) 3 Neutrophils # (Manual) 13.38 H Total Absolute Neuts 13.38 H Lymphocytes # (Manual) 1.71 Total Abs Lymphocytes 1.72 Monocytes # (Manual) 1.20 H Eosinophils # (Manual) Basophils # (Manual) Metamyelocytes # (Man) 0.51 H Myelocytes # (Manual) 0.51 H RBC Morphology Unremarkable Polychromasia Sodium 138 Potassium 4.0 Chloride 104 Carbon Dioxide 29 Anion Gap 5 BUN 17 Creatinine 1.17 Est Cr Clr Drug Dosing 57.6 Est GFR ( Amer) 68.3 Est GFR (Non-Af Amer) 58.9 BUN/Creatinine Ratio 14.5 Glucose 122 H Calcium 8.4 L Magnesium 2.1 Total Bilirubin 0.5 AST 27 ALT 34 Alkaline Phosphatase 58 Total Protein 5.5 L Albumin 2.9 L Globulin 2.6 Albumin/Globulin Ratio 1.1 Prostate Specific Ag 15.403 H Procalcitonin PG Care Time/CCT Total # of Minutes Spent Total Time Spent with Patient: Total time spent is greater than 50% in coordination of care (as documented) at patient's floor/unit and/or counseling patient: Coding Level of Care Code 85949 SUB INP/OBS CARE 3/50MIN Diagnoses Acute pancreatitis K85.90 Acute pancreatitis complication: unspecified Pancreatitis type: unspecified pancreatitis type Peripancreatic fluid collection K86.89 Cholelithiasis with choledocholithiasis K80.70 Sepsis A41.9 Acute metabolic encephalopathy G93.41 Acute respiratory failure with hypoxia J96.01 Esophagitis K20.90 WILMER (acute kidney injury) N17.9 Elevated troponin I level R77.8 Pancreatic cyst K86.2 HTN (hypertension), benign I10 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 (1) Acute pancreatitis Acute pancreatitis complication: unspecified Pancreatitis type: unspecified pancreatitis type Qualified Code(s): K85.90 - Acute pancreatitis without necrosis or infection, unspecified
--- NOTE | 2022-09-06 11:32 | Surgery Progress Note ---
Date of Service September 06, 2022 Assessment & Plan (1) Acute pancreatitis: Plan: 09/04/2022 12:23PM F/U pancreatitis, cholelithiasis pt is doing better, no fever, no abdominal pain, tolerated diet, but WBC 18,000 based on high WBC, I recommend to do CT scan to R/O pancreatic abscess, D/W benefits, risks and alternatives of the CT scan with pt and his , they agreed with CT scan, I answered all questions, repeat lab sin morning will F/U, 09/05/2022 7:[address] Diaz pt feels better, tolerated diet, I reviewed CT scan finding with pt and his yesterday. WBC pending. depend on WBc , pancreatic fluid need drainage or not. will F/U. 09/06/2022 11:[address] Diaz doing better. no abdominal pain, WBC down to 14 from 16 I agreed with GI plan, pt can be discharged from surgical point, PO cipro + flagyl for 7 days, F/u me 2 weeks, sign off today, please call with questions, Thanks. (2) Sepsis: (3) Cholelithiasis with choledocholithiasis: Plan: will do cholecystectomy out patient setting. (4) Acute metabolic encephalopathy: Plan 77 year-old male presented to ED with 1 day history of nausea, vomiting x 7 and upper abdominal pain with elevated leukocytosis of 22k, t. bili of 2.4, and lipase of [address] scan of abd/pelvis showing acute pancreatitis with decreased enhancement of pancreatic body suspicious for developing necrotizing pancreatitis. No peripancreatic fluid collections or focal peripancreatic necrosis. POD # 2 s/p EUS + ERCP found to have choledocholithiasis s/p stent placement x 1 afebrile leukocytosis improved to 18K still with confusion, hallucinations, agitation requiring 1:1, waxes and wanes no abdominal pain , examination without abdominal pain t. bili down and lfts normalized, lipase down to 80 Plan: Given patients severe pancreatitis and encephalopathy, would recommend delaying cholecystectomy until outpatient in about 3-4 weeks. He does have cholelithiasis and would benefit from cholecystectomy to prevent further biliary obstruction however would like further clinical improvement before putting patient under another general anesthetic and surgical procedure. Likely has significant inflammation from the acute pancreatitis which could make laparoscopic procedure more difficult and increase risks of surgery. MRCP showing no signs of acute cholecystitis and the gallbladder filled with contrast during ERCP with patent cystic duct. Continue IV antibiotics, total course of abx therapy for 2 weeks per GI recommendations Clear liquids and advance as tolerated to low fat diet continue current medical management [facility] covering over weekend Dr. diaz has seen and examined patient, agrees with above. Admission and Anticipated Discharge Date Admission Date: August 28, 2022 Supervising Physician Co-Signing Physician Notes I have seen the patient with the PA and agree with continuation of the above stated plan as initiated by the original consulting surgeon. Subjective Patient had increased agitation and confusion again overnight and did not sleep much. He also refused his oral evening medications including his antibiotics. He then slept for a few hours this morning as per his and since then has been much more mentally clear. He denies any abdominal pains, no nausea. He is tolerating a low-fat diet. He is moving his bowels and voiding. He is ambulating frequently around the halls. Telemetry with normal sinus rhythm PACs, PVCs, rates in 60s to 70s 09/05/2022 7:36 AM, Dr. Diaz pt id doing much better, no abdominal pain, tolerated diet no nausea, no vomiting, no fever. 09/06/2022 11:[address] Diaz. pt is doing better, no abdominal pain, no fever, WBC 14,000. I reviewed GI note. Physical Exam Constitutional: WD/WN, vitals as above Eyes: PERRL, conjunctivae normal, anicteric sclerae Neck: trachea midline, no thyromegaly Respiratory: normal respiratory effort, lungs clear to auscultation Gastrointestinal (Abdomen): soft, NT, Nd, BS +, Neurologic: patellar DTR's 2+ bilat, sensation intact Psychiatric: A+Ox3, euthymic affect Results & Data Vital Signs (Past 12 Hours) Vital Signs Temp Pulse Resp BP Pulse Ox O2 Del Method 09/06/22 07:00 36.8 C 63 18 146/73 H 97 Room Air 09/06/22 03:23 36.4 C L 60 16 125/70 Room Air Laboratory Results Abnormal lab results 09/06/22 09/06/22 Range/Units 06:53 06:53 WBC 15.43 H (4.8-10.8) K/ul RBC 3.89 L (4.70-6.10) M/uL Hgb 12.3 L (14.0-18.0) g/dl Hct 35.9 L (42.0-52.0) % Neutrophils # (Manual) 11.42 H (1.40-6.50) K/uL Total Absolute Neuts 11.42 H (1.4-6.5) K/uL Monocytes # (Manual) 1.23 H (0.11-0.59) K/uL Metamyelocytes # (Man) 0.31 H (0-0) K/uL Myelocytes # (Manual) 0.46 H (0-0) K/uL Glucose 118 H (70-99(Fasting)) mg/dl Calcium 8.3 L (8.6-10.3) mg/dl
[2022-09-06 11:36] LABS: Appearance Urine Clear (Clear); Bacteria Urine Automated Negative (Negative); Bilirubin Urine Negative (Negative); Blood Urine Trace (Negative); Color Urine Dark Yellow; Glucose Urine UA Trace (Negative); Ketones Urine Trace (Negative); Leukocyte Esterase Urine Trace (Negative); Nitrite Urine Negative (Negative); Protein Urine 1+ (Negative); RBC Urine Automated 0-4 /hpf (0-4); Urobilinogen Urine Negative (Negative)
[2022-09-06] MEDS ORDERED: POTASSIUM CHLORIDE CRTAB 20 MEQ TABCR PO STA (15:09)
[2022-09-06] MEDS ORDERED: MAGNESIUM OXIDE 400 MG TAB PO ONE (15:10)
[2022-09-06] MEDS ORDERED: FUROSEMIDE 20 MG TAB PO ONE (15:30)
[2022-09-06] MEDS: HEPARIN SOD 5,000 UNIT/0.5 ML VIAL SQ SCH ×2 (15:41→23:54)
--- NOTE | 2022-09-06 19:57 | Hospitalist Progress Note ---
Date of Service September 06, 2022 Assessment & Plan (1) Acute pancreatitis: Plan: RESOLVED. Presented with SEVERE gallstone pancreatitis with possible necrotizing process of pancreas as well. Peak lipase 1057. Last lipase level <100. Treated with cefepime/flagyl early in the stay. Treated in customary fashion with bowel rest/IVF. Found to have choledocholithiasis on MRCP and ERCP 08/30 with 3 cm hiatal hernia, esophagitis of the lower third of the esophagus in addition to cholelithiasis and choledocholithiasis. CBD stent placed by Dr Genao, [facility]. Due to persistent leukocytosis (WBC count did peak at 30) repeat CT a/p obtained 09/04/22 showing peripancreatic fluid collection (see below). Despite the new collection he is clinically well, tolerating diet, no abdominal symptoms, no fever, etc. WBC count continues to trend down. [facility] saw patient yesterday. Peripancreatic fluid collection not organized enough to drain. Thus, continue cipro/flagyl x 7 more days and plan for EUS in 3 weeks for draining of the cyst. [facility] GI office will arrange this. Will need repeat ERCP in 6-8 wks for CBD stent removal. Dr Hyman has seen from [facility] gen surg - will plan elective lap antonio in 3-4 weeks post-discharge. Will set up post-discharge follow-up appt with Dr Hyman. (2) Peripancreatic fluid collection: Plan: 7cm x 6cm on CT abd/pelvis 09/04/22 [facility] GI and gen surgery re-evaluated patient - collection not organized enough to drain, and the patient is clinically very stable and improving Thus, defer on drainage at this time EUS in 3 weeks for possible drainage then To f/u with Dr Barrios for such (3) Cholelithiasis with choledocholithiasis: Plan: s/p ERCP 08/30/22 - Dr Genao - s/p removal of CBD stones with CBD stent placement Will need stent retrieval in 6-8 weeks Needs cholecystectomy in [address] Hyman (4) Sepsis: Plan: 2nd acute pancreatitis - resolved Blood cx's negative Did not have purulent fluid in bile duct during ERCP but [id number] will complete 14 days of antibiotics Cont cipro/flagyl Repeat CBC am but wbc count did trend down once again today (15 today, had peaked at 30 early in admission) (5) Acute metabolic encephalopathy: Plan: 2nd to #1, hospital psychosis, etc IMPROVED remains on zyprexa HS prn only vit B1 level pending remains on empiric thiamine (6) Acute respiratory failure with hypoxia: Plan: Developed hypoxia requiring 4 LNC O2 on the night of 08/31 Chest x-ray with pulmonary edema and evidence of volume overload s/p lasix with resolution of symptoms stable since then in room air (7) Esophagitis: Plan: as seen on EGD 08/[address] Genao continue PPI p.o. twice daily x 3 months with repeat EGD in 3 months to reassess (8) WILMER (acute kidney injury): Plan: resolved peak Cr 1.4 now 1.1 2nd to #1 (9) Elevated troponin I level: Plan: HS troponin 57/90/44 2nd to myocardial demand ischemia in setting of #1 above no evidence of ACS (10) Pancreatic cyst: Plan: 2cm pancreatic head repeat EUS in 3 months to re-eval (11) HTN (hypertension), benign: Plan: Controlled Continue lisinopril (12) Prostate asymmetry: Plan: CT a/p on 09/04 with 2.7 cm enhancing focus within the right lateral aspect of the prostate Informally I reviewed this CT finding with on-call urology This may represent a prostatic abscess If so he is not symptomatic from such NO LUTS NO rectal or perineal pain PSA is elevated - certainly prostatic inflammation from this 2.7cm focus could be causing the elevation cipro should cover the prostate well at minimum will need [facility] Urology f/u shortly after discharge for recheck would advise keeping on cipro beyond 14 days (being used for pancreas/biliary tree) to cover the prostate Plan DVT proph- heparin SC Pt's updated at the bedside again today repeat labs am anticipate d/c home in am tomorrow Admission and Anticipated Discharge Date Admission Date: August 28, 2022 Subjective tele overnight wnl cont to feel well no abd pain no nausea no vomiting no blood per rectum eating fair-good 1 loose stool today only NO LUTS NO rectal/perineal pain NO scrotal pain at bedside today Review of Systems Review of Systems: gen - no fevers, no chills, feels good, walking the hallways with walker and 's assistance cv - no chest pain pulm - no dyspnea or ZARATE musculo - LE edema present GI - see HPI Physical Exam Physical Exam: gen - NAD, sitting in chair comfortably eyes - nonicteric mouth - MMM neck - no JVD heart - RRR, s1 s2, no murmur lungs - decreased BS bases, CTA b/l otherwise abd - soft NT ND BS+; no HSM ext - 1+ edema b/l, pulses 2+ b/l psych - a/o x 3 Results & Data Results & Data Vital Signs (Past 12 Hours) Vital Signs Temp Pulse Resp BP Pulse Ox O2 Del Method 09/06/22 15:42 36.5 C 70 18 120/76 97 Room Air 09/06/22 11:47 36.7 C 61 18 110/62 97 Room Air Laboratory Results Laboratory Results - last 24 hr 09/06/22 09/06/22 09/06/22 06:53 06:53 Unknown WBC 15.43 H RBC 3.89 L Hgb 12.3 L Hct 35.9 L MCV 92.3 MCH 31.6 MCHC 34.3 RDW Std Deviation 43.0 RDW Coeff of Zane 12.8 Plt Count 304 MPV 10.6 Neutrophils % (Manual) 74 Neutrophils # (Manual) 11.42 H Total Absolute Neuts 11.42 H Lymphocytes # (Manual) 1.70 Total Abs Lymphocytes 1.70 Monocytes # (Manual) 1.23 H Eosinophils # (Manual) 0.31 Basophils # (Manual) 0.15 Metamyelocytes # (Man) 0.31 H Myelocytes # (Manual) 0.46 H Polychromasia 1+ Sodium 140 Potassium 4.0 Chloride 106 Carbon Dioxide 29 Anion Gap 5 BUN 15 Creatinine 1.27 Est Cr Clr Drug Dosing 52.9 Est GFR ( Amer) 61.9 Est GFR (Non-Af Amer) 53.4 BUN/Creatinine Ratio 11.8 Glucose 118 H Calcium 8.3 L Urine Color Dark Yellow Urine Appearance Clear Urine pH 5.0 Ur Specific [place] 1.020 Urine Protein 1+ H Urine Glucose (UA) Trace H Urine Ketones Trace H Urine Blood Trace H Urine Nitrite Negative Urine Bilirubin Negative Urine Urobilinogen Negative Ur Leukocyte Esterase Trace H Urine WBC (Auto) 1-5 Urine RBC (Auto) 0-4 U Hyaline Cast (Auto) 1-5 U Epithel Cells (Auto) 10-20 H Urine Bacteria (Auto) Negative PG Care Time/CCT Total # of Minutes Spent Total Time Spent with Patient: Total time spent is greater than 50% in coordination of care (as documented) at patient's floor/unit and/or counseling patient: Coding Level of Care Code 42345 SUB INP/OBS CARE 2/35MIN Diagnoses Acute pancreatitis K85.90 Acute pancreatitis complication: unspecified Pancreatitis type: unspecified pancreatitis type Peripancreatic fluid collection K86.89 Cholelithiasis with choledocholithiasis K80.70 Sepsis A41.9 Acute metabolic encephalopathy G93.41 Acute respiratory failure with hypoxia J96.01 Esophagitis K20.90 WILMER (acute kidney injury) N17.9 Elevated troponin I level R77.8 Pancreatic cyst K86.2 HTN (hypertension), benign I10 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 (1) Acute pancreatitis Acute pancreatitis complication: unspecified Pancreatitis type: unspecified pancreatitis type Qualified Code(s): K85.90 - Acute pancreatitis without necrosis or infection, unspecified
[2022-09-06] MEDS: MELATONIN 3 MG TAB PO SCH (20:25)
[2022-09-07 07:19] LABS: Hemoglobin 12.6 g/dl (14.0-18.0); Mean Corpuscular Hemoglobin 31.5 pg (25.0-34.0); Mean Corpuscular Hgb Conc 34.1 g/dL (32.0-36.0); Mean Corpuscular Volume 92.5 fL (80.0-100.0); Mean Platelet Volume 10.8 fL (9.4-12.4); Platelet Count 305 K/uL (130-400); RDW Coefficient of Variation 13.1 % (11.5-14.5); RDW Standard Deviation 44.8 fL (36.4-46.3); White Blood Count 14.41 K/ul (4.8-10.8)
[2022-09-07 07:36] LABS: BUN Creatinine Ratio 9.7 (10-20); Calcium 8.5 mg/dl (8.6-10.3); Creatinine Clr Calc Pharmacy 49.7 ml/min; Potassium 3.9 mmol/L (3.5-5.1)
[2022-09-07] MEDS: PANTOprazole 40 MG TAB PO SCH (08:12)
[2022-09-07] MEDS: THIAMINE HCL 100 MG TAB PO SCH (08:13)
[2022-09-07] MEDS: CIPROFLOXACIN 500 MG TAB PO SCH (08:13)
[2022-09-07] MEDS: metroNIDAZOLE 500 MG TAB PO SCH (08:13)
[2022-09-07] MEDS: HYDROCORTISONE 1% CRM 30 GM TUBE EXT SCH (08:13)
[2022-09-07] MEDS: lisinopril 5 MG TAB PO SCH (10:33)
[2022-09-07] MEDS: HEPARIN SOD 5,000 UNIT/0.5 ML VIAL SQ SCH (10:33)
--- NOTE | 2022-09-07 11:41 | Discharge Summary ---
Date of Service date of admission - August 28, 2022 date of discharge - September 07, 2022 Admission HPI Per Admitting Provider 77 yo male with PMH described below presents to the ED for a one day history of abdominal pain and nausea and vomiting. Patient is currently confused and is a poor historian. Family is at bedside and is able to provide further history. Patient was having nausea vomiting and abdominal pain, yesterday, and noticed no improvement today which prompted patient to come to the ED> Imaging showed signs of possible necrotizing pancreatitis. [facility], currently no acute indciation for surgery and transfer was denied. Principal Diagnosis 1. acute gallstone pancreatitis 2. peripancreatic fluid collection - follow-up with [facility] 3. choledocholithiasis - s/p ERCP - Dr Keyona Genao, [facility] 4. esophagitis 5. possible right-sided prostatic abscess - [facility]rology follow-up needed 6. gallstones 7. leukocytosis - IMPROVING; 2nd to #1, #2, #3 8. acute metabolic encephalopathy - resolved Discharge Exam gen - NAD, sitting in chair comfortably eyes - nonicteric mouth - MMM neck - no JVD heart - RRR, s1 s2, no murmur lungs - decreased BS bases, CTA b/l otherwise abd - soft NT ND BS+; no HSM ext - <1+ edema b/l, pulses 2+ b/l psych - a/o x 3 Discharge Data Allergies Allergy/AdvReac Type Severity Reaction Status Date / Time piperacillin [From Zosyn] Allergy Hives Unverified 08/28/22 11:30 Sulfa (Sulfonamide Allergy Hives Verified 08/09/22 10:50 Antibiotics) tazobactam [From Zosyn] Allergy Hives Unverified 08/28/22 11:30 Consultations [facility] - Judy Cosme MD [facility] - Keyona Genao DO PT OT Procedures Performed Operation Date: 08/30/22 13:30 Actual Procedures p Esophagogastroduodenoscopy - Keyona Genao DO p Endoscopic Ultrasonography Upper - Keyona Genao, s Endoscopic Retrograde Cholangiopancreatogram - Keyona Genao DO 1. EGD: Findings: The upper third of the esophagus and middle third of the esophagus were normal. LA Grade B (one or more mucosal breaks greater than 5 mm, not extending between the tops of two mucosal folds) esophagitis with no bleeding was found in the lower third of the esophagus. A medium-sized hiatal hernia was found. The proximal extent of the gastric folds (end of tubular esophagus) was 36 cm from the incisors. The hiatal narrowing was 39 cm from the incisors. The gastric fundus, gastric body, incisura and gastric antrum were normal. The examined duodenum was normal. 2. Endoscopic ultrasound: Impression: - Two stones were visualized endosonographically in the common bile duct. - Multiple stones were visualized endosonographically in the gallbladder. - Pancreatic parenchymal abnormalities consisting of diffuse echogenicity were noted in the entire pancreas. - Ascites was found on endosonographic examination of the peritoneal cavity. - A 25 mm cystic lesion was seen in the pancreatic head, this could represent a pseudocyst or perhaps an IPMN. Recommendation: - Perform an ERCP today. - Repeat EUS in 3 month to re-evaluate the pancreatic cyst. 3. ERCP: Impression: - The major papilla appeared congested. - A filling defect consistent with a stone was seen on the cholangiogram. - Choledocholithiasis was found. Complete removal was accomplished by biliary sphincterotomy and balloon extraction. - A biliary sphincterotomy was performed. - The biliary tree was swept. - One biliary stent was placed into the common bile duct. Recommendation: - Repeat ERCP in 6 - 8 weeks to remove stent. - Refer to a surgeon to determine timing of cholecystectomy. Ordered Studies Chest X-Ray 08/28/22 09:04 XR chest 1V portable HISTORY: 77 years-old Male vomiting acute nausea with vomiting COMPARISON: Chest radiograph 12/31/2017 TECHNIQUE: AP view of the chest FINDINGS: Cardiac silhouette is enlarged. Atherosclerosis of the aorta. Spondylotic spurring of the spine. No pneumothorax, pleural effusion, airspace consolidation or pulmonary edema. IMPRESSION: No acute process. ACT 112: Negative or not required by law. The above report was generated using voice recognition software. It may contain grammatical, syntax or spelling errors. Electronically signed by: Vel Morales M.D. 08/28/2022 9:37 AM Abdomen/Pelvis CT 08/28/22 09:[address] WITH IV CONTRAST CT DOSE: 1077.80 mGy.cm HISTORY: Acute onset abdominal pain with nausea and vomiting obsstruction, pain , vomiting TECHNIQUE: Multiaxial CT images of the abdomen and pelvis were performed following the IV administration of 88 cc of Optiray, A dose lowering technique was utilized adhering to the principles of ALARA. COMPARISON STUDY: Chest radiograph of same day FINDINGS: Cardiomegaly. Mild bibasilar atelectasis. No pneumatosis or pneumoperitoneum. Unremarkable spleen and adrenal glands. Partial distention of the gallbladder with mild circumferential wall thickening. No biliary ductal dilation. Patency of the hepatic and portal veins. Interstitial and peripancreatic edema with small volume of ascites in the lesser sac with extension into the upper abdomen and dependent pelvis. There is decreased enhancement throughout the neck and body of the pancreas. No pancreatic ductal dilation or acute peripancreatic fluid collection. 1.5 cm hypodensity within the uncinate process of the pancreas may represent a sidebranch IPMN. Subcentimeter hypodensity of the anterior interpolar left kidney, too small to characterize. 3 mm nonobstructing calculus of the inferior pole right kidney. No hydronephrosis. Prostatomegaly. Urinary bladder wall thickening with partial distention. Small fat filled inguinal hernias. Atherosclerosis of the aorta with infrarenal ectasia, 2.8 cm. No lymphadenopathy. Wall thickening of distal esophagus which is fluid-filled. Small hiatal hernia. Mild wall thickening of the duodenum. No bowel obstruction. Colonic diverticulosis. Appendectomy. Unremarkable soft tissues. Degenerative changes of the IMPRESSION: 1. No bowel obstruction or pneumoperitoneum. 2. Acute pancreatitis with decreased enhancement involving the pancreatic body suspicious for developing parenchymal necrosis (necrotizing pancreatitis). 3. No acute peripancreatic fluid collections or focal peripancreatic necrosis. 4. Mild wall thickening of the duodenum and gallbladder, likely reactive. 5. 3 mm right renal calculus. 6. Small hiatal hernia with mild distal esophageal wall thickening. ACT 112: Negative or not required by law. The above report was generated using voice recognition software. It may contain grammatical, syntax or spelling errors. Electronically signed by: Vel Morales M.D. 08/28/2022 10:45 AM Brain MRI 08/28/22 14:34 MR brain wo con CLINICAL HISTORY: confusion/ possible left sided droop/ word finding TECHNIQUE: Multiplanar and multisequence MR images of the brain were obtained without intravenous contrast. Comparison: Comparison is made to CT head 08/28/2022 FINDINGS: No abnormal restricted diffusion is identified. Foci of T2 and FLAIR hyperintensity are noted in the paraventricular areas consistent with chronic small vessel ischemic disease. Ex vacuo ventriculomegaly and sulcal enlargement is noted compatible with diffuse volume loss. No mass is seen. There is no mass effect or midline shift. There is no evidence of acute intraparenchymal hemorrhage. No extra axial fluid collections are seen. The corpus callosum, pituitary gland, and cerebellar tonsils appear grossly unremarkable. Flow voids of the major intracranial arterial vessels are identified. The imaged portions of the paranasal sinuses, mastoid air cells, and orbits are unremarkable. IMPRESSION: No acute abnormality and in particular no evidence of acute infarct. ACT 112: Negative or not required by law. Electronically signed by: Avery Campbell M.D. 08/28/2022 6:[address] 08/28/22 14:34 CT head/brain wo con CLINICAL HISTORY: 77 years-old Male with confusion. Acutely altered mental status TECHNIQUE: Multiple axial CT images of the head were obtained without contrast. A dose lowering technique was utilized adhering to the principles of ALARA. CT DOSE: 625.80 mGy.cm COMPARISON: Head CT 12/31/2017. FINDINGS: No acute intracranial hemorrhage, midline shift, intracranial mass, hydrocephalus, territorial ischemia or abnormal extra-axial collection. Involutional changes with chronic microvascular ischemic disease. Cerebral vascular calcifications. The calvarium is intact. Prior bilateral lens repair. The paranasal sinuses, mastoid air cells, and middle ear cavities are clear. IMPRESSION: No acute intracranial abnormality. ACT 112: Negative or not required by law. The above report was generated using voice recognition software. It may contain grammatical, syntax or spelling errors. Electronically signed by: Vel Morales M.D. 08/28/2022 4:29 PM Cholangiopancreatography MRI 08/29/22 09:37 MRCP CLINICAL HISTORY: Acute pancreatitis. Generalized abdominal pain. Nausea and vomiting. COMPARISON STUDY: Abdominal CT dated 08/28/2022. TECHNIQUE: Abdominal MRCP is performed utilizing various T2-weighted sequences in the axial and coronal planes. 3-D reformats are created and assessed. IV contrast was not administered for this examination. The examination is compromised by motion artifact. FINDINGS: The gallbladder is distended but otherwise normal in appearance. No definite gallstones are seen. There is no gallbladder wall thickening. There is no intra or extrahepatic biliary ductal dilatation. The common bile duct measures up to 3 mm. Question a meniscus just above the ampulla on coronal image #83. A small distal common bile duct stone is not excluded. This could also be artifactual. The pancreatic duct is normal in caliber. The pancreas is edematous with peripancreatic inflammation and fluid. The appearance is consistent with acute pancreatitis. There is a 2.0 cm ovoid cystic lesion in the pancreatic head. Additional punctate cystic foci are suggested more distally within the pancreas. There is a small volume of upper abdominal ascites. The unenhanced liver, spleen, adrenal glands, and kidneys are grossly unremarkable. There is no evidence of bowel obstruction. The heart is enlarged. A small hiatal hernia is noted. There are small left and trace right pleural effusions with dependent consolidation. The abdominal aorta is normal in course and caliber. IMPRESSION: 1. There is evidence of acute pancreatitis. 2. The gallbladder is mildly distended but otherwise normal in appearance. No definite gallstones are seen. 3. There is no intra or extrahepatic biliary ductal dilatation. 4. Question artifact versus a small meniscus in the distal common bile duct just above the ampulla. A small distal common duct stone is not excluded. 5. A 2.0 cm simple cystic lesion in the pancreatic head is typical for a side- branch IPMN versus a mucinous cystic neoplasm. Nonemergent GI follow up is recommended. 6. Ascites and pleural effusions. Pleural effusions are new from yesterday. 7. Additional findings as above. Electronically signed by: Iftikhar Silver M.D. 08/29/2022 2:56 PM Endo Retro Cholangiopancreatogram 08/30/22 14:30 [place] ERCP biliary ductal CLINICAL HISTORY: ERCP COMPARISON STUDY: CT 08/29/2019. FLUOROSCOPY TIME: 20.7 seconds FLUOROSCOPY IMAGES: 3 EXPOSURE DOSE: 8.29 mGy FINDINGS: Endoscope within the duodenum. Cannulation of the common bile duct with retrograde injection of contrast. No biliary ductal dilation, filling defects or definite strictures identified. Subsequent image demonstrates placement of a common bile duct stent which appears to be in satisfactory positioning. IMPRESSION: Fluoroscopic assistance as above. ACT 112: Negative or not required by law. Electronically signed by: Vel Morales M.D. 08/30/2022 2:45 PM Chest X-Ray 09/01/22 06:46 XR chest 1V portable CLINICAL HISTORY: Shortness of breath. COMPARISON STUDY: Chest radiograph August 28, 2022. FINDINGS: Lung volumes are noted. No pneumothorax. No definite pleural effusion. Cardiomegaly is unchanged. Pulmonary vascular congestion with possible mild pulmonary edema. Left basilar opacity has developed. IMPRESSION: 1. Cardiomegaly with interval development of pulmonary vascular congestion with possible mild pulmonary edema. 2. New left basilar opacity which could reflect atelectasis or pneumonia. 3. Low lung volumes. ACT 112: Negative or not required by law. Electronically signed by: Mikael Mehta M.D. 09/01/2022 7:25 AM Abdomen/Pelvis CT 09/04/22 12:27 CT OF THE ABDOMEN AND PELVIS WITH CONTRAST CLINICAL HISTORY: to R/O pancreatic abscess COMPARISON STUDY: CT of the abdomen and pelvis August 28, 2022. MRCP August 29, 2022. TECHNIQUE: Following IV administration of 84 mL of Optiray, axial images of the abdomen and pelvis were obtained from the lung bases to the proximal femurs. Images were reviewed in the axial, sagittal, and coronal planes. IV contrast was administered without complication. Automated exposure control was utilized for the study. A dose lowering technique was utilized adhering to the principles of ALARA. CT DOSE: 1124.31 mGy.cm FINDINGS: Small left and trace right pleural effusions are present. Subpleural opacity favors atelectasis. No pneumatosis, free air or portal venous gas is present. A common bile duct stent is in place. There is no biliary ductal dilatation. Hyperdense material within the gallbladder may be related to recent procedure. The gallbladder is not distended. No hepatic lesions. Spleen and left kidney are unremarkable. There is a 2 mm right renal calculus. There is no hydronephrosis. Trace gas within the bladder is noted. There is a small amount of ascites. Anasarca is noted. Moderate peripancreatic fluid and stranding is noted. Portions of the body and neck demonstrate decreased enhancement suggestive of pancreatic necrosis. The findings have mildly progressed since prior CT. There has been interval development of a rim-enhancing peripancreatic fluid collection between the pancreas and greater curvature of the stomach which measures 7.7 x 6.7 cm. There is wall thickening of the adjacent portion of the stomach. No additional fluid collections are present. Major vasculature is patent. A 2.7 cm enhancing focus within the right lateral aspect prostate on axial image 241 is noted. This is nonspecific. There is no evidence for a bowel obstruction. The appendix is not visualized. There is moderate plaque of the abdominal aorta. IMPRESSION: 1. Progression of findings consistent with acute pancreatitis since CT of August 28, 2022. Diminished enhancement of portions of the pancreatic body and neck suggestive of pancreatic necrosis. Interval development of a 7.7 x 6.7 cm rim- enhancing peripancreatic fluid collection located between the pancreas and greater curvature of the stomach with associated wall thickening of the stomach. This is suggestive of an acute peripancreatic fluid collection. Sterility cannot be assessed by CT however this contains no gas. 2. No bowel obstruction. No bowel wall thickening. 3. Small left and trace right pleural effusions. 4. 2.7 cm enhancing focus within the right lateral aspect of the prostate. This is nonspecific and correlation with serum PSA level is recommended. ACT 112: Negative or not required by law. Electronically signed by: Mikael Mehta M.D. 09/04/2022 5:35 PM Hospital Course (1) Acute pancreatitis: Presented with SEVERE gallstone pancreatitis with possible necrotizing process of pancreas as well. Peak lipase 1057. Last lipase level <100. Treated with cefepime/flagyl early in the stay along with bowel rest/IVF. Found to have choledocholithiasis on MRCP and ERCP 08/30 with 3 cm hiatal hernia, esophagitis of the lower third of the esophagus in addition to cholelithiasis and choledocholithiasis. CBD stent placed by Jacqueline Tarango. Ultimately resumed on a diet and advanced to low fat. He was tolerating such at discharge. He will continue low fat diet until all procedures on his biliary tract/gall bladder are complete. Due to persistent leukocytosis (WBC count did peak at 30 while hospitalized) repeat CT abd/pelvis was obtained on 09/04/22 which showed peripancreatic fluid collection (see below). Jacqueline TAYLOR felt that the peripancreatic fluid collection was not organized enough to drain. Further, despite the new collection, he was clinically well, tolerating a diet, having no abdominal symptoms or fever, etc. WBC count continued to trend down in the latter portion of his stay. WBC count was <15 at time of discharge. He was transitioned from IV cefepime/flagyl to PO cipro/flagyl. At discharge he needs a few more days of flagyl. His cipro will be continued longer (14 days after discharge) to cover the possibility of prostatic abscess. He will need outpatient follow-up in 3-4 weeks with [facility] to undergo repeat endoscopic ultrasound. At that time he can have the peripancreatic fluid collection drained if felt necessary. He will also need repeat ERCP in 6-8 wks for CBD stent removal. Dr Judy Cosme from [facility] saw patient in consult and plans outpatient elective lap cholecystectomy in 3-4 weeks post-discharge. (2) Peripancreatic fluid collection: 7cm x 6cm on CT abd/pelvis 09/04/22. [facility] re-evaluated patient - collection not organized enough to drain, and the patient was clinically very stable and improving. Thus, drainage deferred during this hospitalization. Repeat EUS with [facility] in 3 weeks for possible drainage recommended. To f/u with Dr Danny Barrios for such. (3) Cholelithiasis with choledocholithiasis: s/p ERCP 08/30/22 - Dr Keyona Genao - removal of CBD stones with CBD stent placement Will need stent retrieval in 6-8 weeks Needs cholecystectomy in [address] Judy Cosme (4) Sepsis: 2nd acute pancreatitis - resolved Blood cx's negative Did not have purulent fluid in bile duct during ERCP but [id number] will complete 14 days of antibiotics to cover the pancreas/gall bladder/bile duct Cont cipro/flagyl at discharge (5) Acute metabolic encephalopathy: 2nd to #1, hospital psychosis, etc IMPROVED / RESOLVED vit B1 level returned normal; thiamine supplementation discontinued (6) Acute respiratory failure with hypoxia: Developed hypoxia requiring 4 L NC O2 on the night of 08/31/22. Chest x-ray with pulmonary edema and evidence of volume overload. s/p lasix with resolution of symptoms and ultimate weaning off of NC O2. stable in room air since that time. (7) Esophagitis: as seen on EGD 08/30/[address] Genao continue PPI p.o. twice daily x 3 months with repeat EGD in 3 months to reassess (8) WILMER (acute kidney injury): resolved peak Cr 1.4 now 1.1 2nd to #1 (9) Elevated troponin I level: HS troponin 57/90/44 2nd to myocardial demand ischemia in setting of #1 above no evidence of ACS (10) Pancreatic cyst: 2cm pancreatic head repeat EUS in 3 months to re-eval the lesion (11) HTN (hypertension), benign: Controlled without medication At discharge advised to HOLD lisinopril (12) Prostate asymmetry: CT a/p on 09/04/22 with 2.7 cm enhancing focus within the right lateral aspect of the prostate Informally I reviewed this CT finding with on-call urology This may have represented a prostatic abscess If so he was not symptomatic from such NO LUTS NO rectal or perineal pain PSA was elevated (15) - certainly prostatic inflammation from this 2.7cm focus could be causing the elevation cipro should cover the prostate well at minimum will need [facility] f/u shortly after discharge for recheck 14-day course of cipro after discharge recommended to cover this prostatic abnormality Plan patient is returning home with his with home health services Home Health Attestation I certify that this patient is under my care and that I, or a physicians certified first assistant working with me, had a face to-face encounter that meets the home health [id number] encounter requirements with this patient. The encounter with the patient was in whole, or in part, for the following medical condition, which is the primary reason for home health care (list medical condition): Sepsis I certify that, based on my findings, the following services are medically necessary home health services: My clinical findings support the need for the above services because: OT Assess ADL Status and Restore Function w ADLs PT Assessment for Endurance / Balance / Strength PT Eval for Safety and Mobility PT Eval for Safety, Gait Training, Assistive Devices PT Gait and Balance Training, Strengthening and Safety Skilled Nsg Assessment Further, I certify that my clinical findings support that this patient is homebound (i.e. absences from home require considerable and taxing effort and are for medical reasons or mosque services or infrequently or of short duration when for other reasons) because: Supportive Aid - Walker Certification for Home Health Services: Based on the above findings, I certify that this patient is confined to the home and needs intermittent longterm care, physical therapy and/or speech therapy or continues to need occupational therapy. The patient is under my care, and I have initiated the establishment of the plan of care. This patient will be followed by a physician who will periodically review the plan of care. Total Time Total Time Spent Total Time Spent (In Minutes): 50 Discharge Plan Discharge Items Patient Disposition: Home - Home Health Services Reason For Visit: PANCREATITIS Discharge Diagnosis: 1. acute pancreatitis - resolving 2. peripancreatic fluid collection - follow-up with [facility] 3. choledocholithiasis (gallstones in the bile duct) - ERCP procedure with removal of stones & placement of stent - Dr Keyona Genao, [facility] 4. esophagitis (inflamed esophagus) 5. abnormality in the right lobe of the prostate - possible infection - [facility]rology follow-up needed 6. gallstones - gall bladder surgery needed in future by [facility] 7. high white blood cell count - multifactorial (due to #1, #5, etc) - IMPROVING 8. confusion - improved Activity: As commented below Activity Comment: gradually increase activities next 7-10 days but avoid heavy exertion Exercise/Sports: Wait until after follow-up appointment Non-emergency contact: Primary Care Provider, Surgeon, Software Development Leader and Urologist Call non-emergency contact if: you have any medication questions, your symptoms worsen, your pain is unusual for you, your pain is concerning for you and you have a fever Follow-up/Referrals: Magdaleno Howe III, CRNP [Primary Care Provider] - 09/12/22 3:20 pm (FOLLOW UP: WITH RUDOLPH SHAH: SEPTEMBER 12, 2022 @ 3:20PM) Keyona Genao DO [Physician] - (Dr Genao performed your ERCP procedure & bile duct stent; Dr Genao or Dr Barrios will need to retrieve the bile duct stent in about 6-8 weeks; [facility] will coordinate the date and timing of this procedure ) Judy Cosme MD [Physician] - 09/20/22 10:15 am (1-[address] COSME: SEPTEMBER 20, 2022 @10:15 ARRIVE AT 10:00 [facility]) Danny Barrios MD [Physician] - (Dr Barrios wishes to perform an " endoscopic ultrasound" in 3-4 weeks to determine if the pancreas fluid collection needs to be drained; [facility] will be contacting you with appointment date, time and location for this procedure. ) Art Colon MD [Physician] - 09/12/22 10:40 am Diet: Low Fat Addtl Attending Provider Instructions: Mr Alfred, You were hospitalized for a severe case of acute pancreatitis. Your pancreatitis was caused by gallstones. You were treated with IV fluids, pain medication, diet restriction, and antibiotics. Dr Keyona Genao, [facility], performed ERCP procedure. During that procedure he found gallstones in your bile duct. These were removed, and a stent was placed into the main bile duct. During your endoscopy it was also noted that your esophagus was inflamed. This is known as "esophagitis." Esophagitis will improve/resolve with use of acid reducers. The stent will be removed in 6-8 weeks via a repeat ERCP procedure. A diet was gradually resumed and you are tolerating a low fat diet at time of discharge. Due to concerns of persistently elevated white blood cell count a repeat scan of your abdomen/pelvis was obtained later in the stay. This showed a 7cm x 6cm fluid collection surrounding your pancreas. [facility] felt it would be best to NOT drain the collection at this time. Hopefully you will not need intervention on this fluid collection, but [facility] (likely Dr Danny Barrios) plans to perform EUS (endoscopic ultrasound) procedure in 3-4 weeks. This is an internal ultrasound that can look at the collection. It can be determined at that time if it needs draining. [facility] will contact you to set up an appointment date/time/location for this procedure. You received IV then oral antibiotics in the hospital and will continue these at home (see below). Finally, your CT scan showed that there was an abnormality in your prostate gland. This may represent infection of the prostate gland. The antibiotics provided will cover & treat the prostate. You will need follow-up with [facility] for this. Recommendations - 1. LOW FAT Diet (see handouts) until all procedures are completed over the next 4-6 weeks. 2. HOLD your lisinopril for now. 3. Please have Mr Howe check the following labs at time of hospital follow-up --- CBC and "CMP". 4. Antibiotics - * ciprofloxacin - 500mg twice daily x 14 days, first dose tonight * metronidazole 500mg three times daily x 4 days, first dose upon arrival home Please, no alcohol at any time over the next couple of months. 5. OK to take an [id number] probiotic supplement to help prevent diarrhea from your antibiotics. Stay on the probiotic until your antibiotics in #4 are complete. 6. Fluid in legs - * furosemide 20mg x 1 on 09/08/22 * take a potassium supplement x 1 on 09/08/22 as well 7. Ok to resume your aspirin. 8. For esophagitis - * pantoprazole 40mg twice daily x 3 months 9. Home PT and OT have been set up for you via [facility] agency. 10. Please use your walker at home and when you leave your house. 11. You likely have at least 2 or more weeks of recovery from this long hospitalization. During this time period it is ok to rest as needed. Focus on good nutrition and adequate hydration. Gradually increase activities as tolerated. Avoid heavy exertional activity for now. 12. If you do not have confirmation of your procedures with [facility] by September 12, please contact their office directly for additional details. Phone #'s for Dr Genao and Dr Barrios are provided in these instructions. Return to [facility] if - * you have fevers over 100 degrees; please purchase a thermometer if you don't have one at home * you have recurrent abdominal pains * you develop severe diarrhea * you have significant nausea and/or vomiting * you are short of breath * the whites of your eyes or the skin of your face turn yellow ("jaundice") * you have painful urination or difficulty passing your urine * any other concerns It was our pleasure to care for you! Please continue to feel better, Dr Barbosa Pending Studies at Discharge: No Stand-Alone Forms: My [facility] [employer], Smoking Cessation Medications and DC Order Prescriptions: New ciprofloxacin HCl 500 mg Tablet 500 mg PO BID 14 Days Qty: 28 0RF pantoprazole 40 mg Tablet,Delayed Release (Dr/Ec) 40 mg PO BID Qty: 60 2RF furosemide 20 mg tablet 20 mg PO ONCE Qty: 1 0RF Rx Instructions: take AM of 5/26/23. potassium chloride 20 mEq tablet extended release 20 meq PO ONCE Qty: 1 0RF Rx Instructions: take AM of 09/08/22. Continued mupirocin 2 % ointment 1 applic topical TID triamcinolone acetonide 0.1 % cream 1 applic TOP DAILY PRN (Reason: rash) Qty: 80 0RF cholecalciferol (vitamin D3) [Vitamin D3] 50 mcg (2,000 unit) tablet 2,000 unit PO DAILY Rx Instructions: 2,000 units in summer, 4,000 units in winter aspirin [Adult Low Dose Aspirin] 81 mg Tablet,Delayed Release (Dr/Ec) 81 mg PO DAILY Centrum Silver Men 300-600-300 mcg Tablet 1 tab PO DAILY melatonin 5 mg Tablet 10 mg PO HS Held lisinopril 5 mg tablet 5 mg PO QAM Qty: 90 3RF Hold Instructions: hold unless Magdaleno Howe - your primary care provider - tells you to resume Discharge Orders: Discharge Order (Routine); Ordered 09/07/22 Ordered By: Christoph Guzman/Other Patient Handouts: Low-Fat Cooking Tips, What Are Gallstones, Understanding Pancreatitis, Adding Flavor to Low-Fat Meals, Pancreatitis Acute Dc, ED Diet, Low Fat Admission Data Admit Date/Time: 08/28/22 13:59 Attending Provider: Christoph Barbosa Admit Provider: Fransisco Davidson Primary Care Provider: Magdaleno Howe III Other Providers: Fransisco Davidson ; Judy Cosme ; Kyrie Valente ; [facility] Healthcare Other Interventions: Discharge Summary Assessment (RN) Last Done: 09/07/22 11:35 Coding Level of Care Code 64483 INP/OBS DISCH >30 MIN Diagnoses Acute pancreatitis K85.90 Acute pancreatitis complication: unspecified Pancreatitis type: unspecified pancreatitis type Peripancreatic fluid collection K86.89 Cholelithiasis with choledocholithiasis K80.70 Sepsis A41.9 Acute metabolic encephalopathy G93.41 Acute respiratory failure with hypoxia J96.01 Esophagitis K20.90 WILMER (acute kidney injury) N17.9 Elevated troponin I level R77.8 Pancreatic cyst K86.2 HTN (hypertension), benign I10 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
== END 2022-09-07 12:43 | disposition home health service (06) | DRG 871 ==
LOC: ED 08:52 → 2S 13:59 → SUATTDRO 13:59 → 2S 16:25